=== PATIENT | female | born 1935 | race Caucasian/White ===

== ENCOUNTER 2017-01-14 15:22 | Inpatient (IN) | payer MEDICARE, OTHER ==
[2017-01-14] MEDS ORDERED: Singulair 10 MG PO PRN (17:16)
[2017-01-14] MEDS ORDERED: TYLENOL 325 MG PO PRN (17:16)
[2017-01-14] MEDS: Norco 10/325 MG Tablet PO PRN ×2 (18:56→22:58)
[2017-01-14] MEDS: Klor Con 10 MEQ PO SCH (22:12)
[2017-01-14] MEDS: Senokot-S Tablet PO SCH (22:12)
[2017-01-15] MEDS: Norco 10/325 MG Tablet PO PRN ×5 (03:58→23:35)
[2017-01-15] MEDS: FEOSOL 325 MG PO SCH (10:00)
[2017-01-15] MEDS: Ecotrin 325 MG PO SCH (10:00)
[2017-01-15] MEDS ORDERED: Aplisol ID SCH (10:00)
[2017-01-15] MEDS: hydroDIURIL 25 MG PO SCH (10:00)
[2017-01-15] MEDS: Zestril 10 MG PO SCH (10:01)
[2017-01-15] MEDS: ZOCOR 20MG PO SCH (10:01)
[2017-01-15] MEDS: celeBREX 100 MG PO SCH (10:01)
[2017-01-15] MEDS: Senokot-S Tablet PO SCH ×2 (10:01→21:09)
[2017-01-15] MEDS: Protonix 40MG Tablet PO SCH (10:01)
[2017-01-15] MEDS: Toprol Xl 100 MG PO SCH (10:01)
[2017-01-15] MEDS: SYNTHROID 50 MCG PO SCH (10:01)
[2017-01-15] MEDS: Klor Con 10 MEQ PO SCH ×2 (10:01→21:08)
[2017-01-15] MEDS ORDERED: Tums EX 750 MG PO PRN (11:22)
[2017-01-15] MEDS ORDERED: Miralax Powder 17GM PACKET PO PRN (11:49)
--- NOTE | 2017-01-15 12:01 | PCM.HP ---
History of Present Illness - Chief Complaint Chief Complaint: deconditioning r/t right total knee arthroplasty History of Present Illness: is a 81 year old female pt of Dr. diego who had a total knee replacement [address] Coelho. Initially she was at [facility] but comes here for rehabilitation. She is not complaining of knee pain, just states it is "sore" when she is up on it. Was constipated, then wiht miralax she had 4 stools last night. - Review of Systems Respiratory: Cough (at times, loose but non productive) Abdominal/Gastrointestinal: Nausea (this morning after taking pills.), Other ( heartburn after taking her pills) Musculoskeletal: Joint Pain (s/p knee surgery) All Other Systems: Reviewed and Negative Medications & Allergies Home Medications: Home Medication List Acetaminophen 325 mg [Tylenol 325 mg] 650 mg PO Q4HPRN PRN 01/14/17 [ History Confirmed 01/14/17] Aspirin 325 mg PO DAILY 01/14/17 [History Confirmed 01/14/17] Celecoxib [Celebrex] 200 mg PO DAILY 01/14/17 [History Confirmed 01/14/17] Esomeprazole Magnesium [Nexium] 40 mg PO DAILY 01/14/17 [History Confirmed 01/14] Ferrous Sulfate 325 mg [Feosol 325 mg] 325 mg PO DAILY 01/14/17 [History Confirmed 01/14/17] Hydrochlorothiazide 12.5 mg PO DAILY 01/14/17 [History Confirmed 01/14/17] Hydrocodone/Acetaminophen [Hydrocodon-Acetaminophn 10-325] 1 tab PO Q4HPRN PRN 01/14/17 [History Confirmed 01/14/17] Levothyroxine Sodium 50 mcg PO QAM 01/14/17 [History Confirmed 01/14/17] Lisinopril 10 mg [Zestril 10 MG] 10 mg PO DAILY 01/14/17 [History Confirmed 01/14/17] Metoprolol Succinate [Toprol Xl] 100 mg PO DAILY 01/14/17 [History Confirmed 01/26] Montelukast Sodium [Singulair] 10 mg PO DAILY PRN PRN 01/14/17 [History Confirmed 01/14/17] Potassium Chloride [Klor-Con 10] 10 meq PO BID 01/14/17 [History Confirmed 01/14] Rosuvastatin Calcium [Crestor] 10 mg PO DAILY 01/14/17 [History Confirmed ] Sennosides/Docusate Sodium [Docusate Sodium-Senna Tablet] 1 tab PO BID 01/14/17 [History Confirmed 01/14/17] Allergies/Adverse Reactions: Allergies Allergy/AdvReac Type Severity Reaction Status Date / Time cephalexin [From Keflex] Allergy Verified 01/14/17 16:41 ciprofloxacin Allergy Verified 01/14/17 16:46 - Past Medical History Past Medical History: Yes Neurological History: No Pertinent History ENT History: No Pertinent History Cardiac History: Hypertension Respiratory History: No Pertinent History Endocrine Medical History: Hypothyroidism Musculoskelatal History: No Pertinent History, Arthritis GI Medical History: Other History: Other Pyscho-Social History: No Pertinent History Reproductive Disorders: Other Comment: cyst on ovary and stomach, 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 - Female History Are you now?: No - Past Surgical History Past Surgical History: Yes Neuro Surgical History: No Pertinent History Cardiac History: No Pertinent History Respiratory Surgery: No Pertinent History GI Surgical History: No Pertinent History Genitourinary Surgical Hx: No Pertinent History Musculskeletal Surgical Hx: Joint Replacement Female Surgical History: No Pertinent History Other Surgical History: total right knee replacement, 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 - Social History Smoking Status: Never smoker Exposure to second hand smoke: No Alcohol: None Drug Use: none - Physical Exam Vital Signs: Vital Signs - 24 hr Temp Pulse Resp BP Pulse Ox 01/14/17 19:45 97.9 F 84 20 128/58 90 L 01/14/17 15:53 97.7 F 81 20 148/67 93 L 01/14/17 15:22 97.7 F 81 20 148/67 93 L General Appearance: no apparent distress Neurologic Exam: alert, oriented x 3, cooperative Eye Exam: eyes nml inspection Neck Exam: normal inspection, non-tender, No lymphadenopathy Respiratory Exam: normal breath sounds, No crackles/rales, No rhonchi, No wheezing Cardiovascular Exam: regular rate/rhythm, normal heart sounds, No murmur Gastrointestinal/Abdomen Exam: soft, normal bowel sounds, No tenderness, No distention, No mass Extremity Exam: other (slight edema RLE. R knee with dressing in place, no erythema. dressing is clean and dry. Ice pack in place immediately prior to exam.) Assessment/Plan (1) S/P knee replacement Current Visit: Yes Status: Acute Assessment & Plan: Here for rehab, PT consulted. POD #4. Code(s): Z96.659 - PRESENCE OF UNSPECIFIED ARTIFICIAL KNEE JOINT (2) HTN (hypertension) Current Visit: Yes Status: Chronic Qualifiers: Hypertension type: essential hypertension Qualified Code(s): I10 - Essential (primary) hypertension Assessment & Plan: stable. recheck labs in a.m. Code(s): I10 - ESSENTIAL (PRIMARY) HYPERTENSION (3) Hyperlipidemia Current Visit: Yes Status: Chronic Qualifiers: Hyperlipidemia type: unspecified Qualified Code(s): E78.5 - Hyperlipidemia , unspecified Code(s): E78.5 - HYPERLIPIDEMIA, UNSPECIFIED (4) Osteoarthritis Current Visit: Yes Status: Chronic Qualifiers: Osteoarthritis location: unspecified site Osteoarthritis type: unspecified Qualified Code(s): M19.90 - Unspecified osteoarthritis, unspecified site Assessment & Plan: has been on celebrex Code(s): M19.90 - UNSPECIFIED OSTEOARTHRITIS, UNSPECIFIED SITE
[2017-01-15] MEDS: ZOFRAN ODT 4 MG PO PRN (12:56)
[2017-01-16] MEDS: Norco 10/325 MG Tablet PO PRN ×4 (03:39→19:57)
[2017-01-16 05:33] LABS: BASOPHIL % 0.5 % (0.0-0.4); Eosinophil % 5.2 % (0.00-5.0); Granulocytes % 48.5 % (36.0-66.0); Lymphocytes % 30.9 % (24.0-44.0); Mean Cell Volume 90.3 fl (78-100); Mean Corpuscular Hemoglobin 29.7 pg (26-32); Mean Platelet Volume 8.3 fl (6-9.5); Monocytes % 14.9 % (0.0-12.0); Platelet Count 373 K/mm3 (150-450); Red Cell Distribution Width 13.4 % (11.5-14.0); White Blood Count 9.6 K/mm3 (4.0-10.5)
[2017-01-16 05:53] LABS: ALBUMIN 2.4 g/dL (3.4-5.0); ALKALINE PHOSPHATASE 79 U/L (46-116); ANION GAP 8.5 MEQ/L (5-15); BILIRUBIN,TOTAL 0.5 mg/dL (0.2-1.0); BLOOD UREA NITROGEN 7 mg/dL (9-20); CHLORIDE 94 mEq/L (98-107); Carbon Dioxide 31.5 mEq/L (21-32); Glucose 106 MG/DL (70-110); Potassium 4.2 mEq/L (3.5-5.1); SGOT/AST 20 U/L (15-37); SGPT/ALT 18 U/L (12-78); SODIUM 130 mEq/L (136-145); Total Protein 5.9 gm/dL (6.4-8.2)
[2017-01-16] MEDS: celeBREX 100 MG PO SCH (10:45)
[2017-01-16] MEDS: Protonix 40MG Tablet PO SCH (10:45)
[2017-01-16] MEDS: hydroDIURIL 25 MG PO SCH (10:45)
[2017-01-16] MEDS: Toprol Xl 100 MG PO SCH (10:45)
[2017-01-16] MEDS: ZOCOR 20MG PO SCH (10:45)
[2017-01-16] MEDS: Klor Con 10 MEQ PO SCH ×2 (10:45→21:21)
[2017-01-16] MEDS: SYNTHROID 50 MCG PO SCH (10:45)
[2017-01-16] MEDS: FEOSOL 325 MG PO SCH (10:45)
[2017-01-16] MEDS: Senokot-S Tablet PO SCH ×2 (10:45→21:21)
[2017-01-16] MEDS: Ecotrin 325 MG PO SCH (10:45)
[2017-01-16] MEDS: Zestril 10 MG PO SCH (10:45)
[2017-01-16] MEDS ORDERED: CHLORASEPTIC SPRAY 180 ML PO PRN (17:38)
[2017-01-17] MEDS: Norco 10/325 MG Tablet PO PRN ×5 (00:28→23:25)
[2017-01-17] MEDS ORDERED: CHLORASEPTIC SPRAY 180 ML PO PRN (06:36)
--- NOTE | 2017-01-17 08:17 | PCM.NOTE ---
Date and Time: 01/17/17814 Subjective Assessment: patient doing quite well s/p right total knee arthroplasty. having some gerd symptoms Objective Exam General Appearance: no apparent distress, alert Skin Exam: normal color, warm, dry Respiratory Exam: normal breath sounds, lungs clear, No respiratory distress Cardiovascular Exam: regular rate/rhythm, normal heart sounds Gastrointestinal/Abdomen Exam: soft, No tenderness, No mass Extremity Exam: normal inspection, normal range of motion OBJECTIVE DATA Vital Signs: Vital Signs - 24 hr Temp Pulse Resp BP Pulse Ox 01/17/17 07: 98.1 F 71 18 145/64 93 L 01/16/17 20:00 98.3 F 73 14 139/63 96 Pain Assessment - Last Documented Pain Intensity 5 Pain Scale Used 0-10 Pain Scale Intake and Output: Intake & Output 01/14/17 01/15/17 01/16/17 01/17/17 11:59 11:59 11:59 11:59 Intake Total 1560 1300 1580 Balance 1560 1300 1580 Weight 83.552 kg Assessment/Plan (1) S/P knee replacement Current Visit: Yes Status: Acute Assessment & Plan: continue PT, no changes at this time. Code(s): Z96.659 - PRESENCE OF UNSPECIFIED ARTIFICIAL KNEE JOINT (2) HTN (hypertension) Current Visit: Yes Status: Chronic Qualifiers: Hypertension type: essential hypertension Qualified Code(s): I10 - Essential (primary) hypertension Code(s): I10 - ESSENTIAL (PRIMARY) HYPERTENSION (3) Hyperlipidemia Current Visit: Yes Status: Chronic Qualifiers: Hyperlipidemia type: unspecified Qualified Code(s): E78.5 - Hyperlipidemia , unspecified Code(s): E78.5 - HYPERLIPIDEMIA, UNSPECIFIED (4) Osteoarthritis Current Visit: Yes Status: Chronic Qualifiers: Osteoarthritis location: unspecified site Osteoarthritis type: unspecified Qualified Code(s): M19.90 - Unspecified osteoarthritis, unspecified site Code(s): M19.90 - UNSPECIFIED OSTEOARTHRITIS, UNSPECIFIED SITE
[2017-01-17] MEDS: Klor Con 10 MEQ PO SCH ×2 (08:56→23:17)
[2017-01-17] MEDS: Ecotrin 325 MG PO SCH (08:56)
[2017-01-17] MEDS: celeBREX 100 MG PO SCH (08:57)
[2017-01-17] MEDS: Protonix 40MG Tablet PO SCH (08:57)
[2017-01-17] MEDS: Senokot-S Tablet PO SCH ×2 (08:57→23:17)
[2017-01-17] MEDS: SYNTHROID 50 MCG PO SCH (08:57)
[2017-01-17] MEDS: Zestril 10 MG PO SCH (08:57)
[2017-01-17] MEDS: FEOSOL 325 MG PO SCH (08:58)
[2017-01-17] MEDS: Toprol Xl 100 MG PO SCH (08:58)
[2017-01-17] MEDS: ZOCOR 20MG PO SCH (08:58)
[2017-01-17] MEDS: hydroDIURIL 25 MG PO SCH (08:58)
[2017-01-17] MEDS ORDERED: Tums EX 750 MG PO PRN ×2 (09:13→10:24)
[2017-01-18] MEDS: Norco 10/325 MG Tablet PO PRN ×3 (08:43→22:02)
[2017-01-18] MEDS: Senokot-S Tablet PO SCH ×2 (08:44→22:02)
[2017-01-18] MEDS: ZOCOR 20MG PO SCH (08:44)
[2017-01-18] MEDS: FEOSOL 325 MG PO SCH (08:46)
[2017-01-18] MEDS: Ecotrin 325 MG PO SCH (08:46)
[2017-01-18] MEDS: Toprol Xl 100 MG PO SCH (08:47)
[2017-01-18] MEDS: Protonix 40MG Tablet PO SCH (08:48)
[2017-01-18] MEDS: celeBREX 100 MG PO SCH (08:50)
[2017-01-18] MEDS: hydroDIURIL 25 MG PO SCH (08:52)
[2017-01-18] MEDS: Zestril 10 MG PO SCH (08:53)
[2017-01-18] MEDS: Klor Con 10 MEQ PO SCH ×2 (10:51→22:01)
[2017-01-18] MEDS: SYNTHROID 50 MCG PO SCH (10:51)
[2017-01-18 22:21] LABS: ADD URINE CULTURE? NO (NO); COMPLETE URINE MICROSCOPIC? NO; Collection Type CLEAN CATCH; Ph 5.5 (5-6)
[2017-01-19] MEDS: Norco 10/325 MG Tablet PO PRN ×4 (07:31→22:47)
--- NOTE | 2017-01-19 08:43 | PCM.NOTE ---
Date and Time: 01/19/17 0841 Subjective Assessment: patient had to have flores cath anchored yesterday, unable to urinate. pain is well controlled, doing great with therapy. ambulating well Objective Exam General Appearance: no apparent distress, alert Respiratory Exam: normal breath sounds, lungs clear, No respiratory distress Cardiovascular Exam: regular rate/rhythm, normal heart sounds Gastrointestinal/Abdomen Exam: soft, No tenderness, No mass Extremity Exam: other (right knee, dressing c/d/i, no erythema. no significant swelling) OBJECTIVE DATA Vital Signs: Vital Signs - 24 hr Temp Pulse Resp BP Pulse Ox 01/19/17 07:12 98.6 F 93 H 18 140/65 94 L 01/18/17 20:00 98.1 F 79 13 138/64 95 Pain Assessment - Last Documented Pain Intensity 2 Pain Scale Used 0-10 Pain Scale Intake and Output: Intake & Output 01/16/17 01/17/17 01/18/17 01/19/17 11:59 11:59 11:59 11:59 Intake Total 1300 2060 1280 1340 Output Total 3200 Balance 1300 2060 1280 -1860 Weight 83.552 kg Lab Results: Lab Results-Last 24 Hours 01/18/17 01/19/17 Range/Units 22:15 05:33 Sodium 135 L (136-145) mEq/L Ur Collection Type CLEAN CATCH Urine Color YELLOW (YELLOW) Urine Appearance CLEAR (CLEAR) Urine pH 5.5 (5-6) Ur Specific [place] <=1.005 (1.005-1.025) Urine Protein NEGATIVE (Negative) Urine Glucose (UA) NEGATIVE (NEGATIVE) mg/dL Urine Ketones NEGATIVE (NEGATIVE) Urine Nitrite NEGATIVE (NEGATIVE) Urine Bilirubin NEGATIVE (NEGATIVE) Urine Urobilinogen 0.2 (0-1) mg/dL Urine WBC (Auto) NEGATIVE (NEGATIVE) Urine RBC (Auto) NEGATIVE (0-5) Nino/ul Specimen Received 01/18/17 7430 Multi-Disciplinary Progress Notes: Multi-Disciplinary Progress Notes 01/18/17 10:42 Case Management Note by Cammy Dickinson PT CONT TO BE IN SWING BED. WILL CONT TO MONITOR ANY DISCHARGE NEEDS . Initialized on 01/18/17 10:42 - END OF NOTE Assessment/Plan (1) S/P knee replacement Current Visit: Yes Status: Acute Assessment & Plan: doing well with therapy, looks great Code(s): Z96.659 - PRESENCE OF UNSPECIFIED ARTIFICIAL KNEE JOINT (2) HTN (hypertension) Current Visit: Yes Status: Chronic Qualifiers: Hypertension type: essential hypertension Qualified Code(s): I10 - Essential (primary) hypertension Code(s): I10 - ESSENTIAL (PRIMARY) HYPERTENSION (3) Hyperlipidemia Current Visit: Yes Status: Chronic Qualifiers: Hyperlipidemia type: unspecified Qualified Code(s): E78.5 - Hyperlipidemia , unspecified Code(s): E78.5 - HYPERLIPIDEMIA, UNSPECIFIED (4) Osteoarthritis Current Visit: Yes Status: Chronic Qualifiers: Osteoarthritis location: unspecified site Osteoarthritis type: unspecified Qualified Code(s): M19.90 - Unspecified osteoarthritis, unspecified site Code(s): M19.90 - UNSPECIFIED OSTEOARTHRITIS, UNSPECIFIED SITE (5) Urinary retention Current Visit: Yes Status: Acute Assessment & Plan: likely secondary to constipation, narcotic use etc. if able to evacuate bowels will remove flores and then check a post-void residual bladder scan Code(s): R33.9 - RETENTION OF URINE, UNSPECIFIED (6) Constipation Current Visit: Yes Status: Acute Assessment & Plan: give mag citrate, if able to evacuate bowels will likely be able to remove flores Code(s): K59.00 - CONSTIPATION, UNSPECIFIED
[2017-01-19] MEDS ORDERED: CITROMA 296 ML PO ONE (09:00)
[2017-01-19] MEDS: Toprol Xl 100 MG PO SCH (09:11)
[2017-01-19] MEDS: celeBREX 100 MG PO SCH (09:11)
[2017-01-19] MEDS: Protonix 40MG Tablet PO SCH (09:12)
[2017-01-19] MEDS: ZOCOR 20MG PO SCH (09:12)
[2017-01-19] MEDS: Ecotrin 325 MG PO SCH (09:12)
[2017-01-19] MEDS: hydroDIURIL 25 MG PO SCH (09:12)
[2017-01-19] MEDS: SYNTHROID 50 MCG PO SCH (09:12)
[2017-01-19] MEDS: Klor Con 10 MEQ PO SCH ×2 (09:12→22:18)
[2017-01-19] MEDS: Senokot-S Tablet PO SCH ×2 (09:12→22:18)
[2017-01-19] MEDS: Zestril 10 MG PO SCH (09:13)
[2017-01-19] MEDS: FEOSOL 325 MG PO SCH (09:13)
[2017-01-20] MEDS: Norco 10/325 MG Tablet PO PRN ×3 (02:54→14:08)
[2017-01-20] MEDS: SYNTHROID 50 MCG PO SCH (07:44)
[2017-01-20] MEDS: celeBREX 100 MG PO SCH (07:45)
[2017-01-20] MEDS: Zestril 10 MG PO SCH (09:01)
[2017-01-20] MEDS: ZOCOR 20MG PO SCH (09:01)
[2017-01-20] MEDS: hydroDIURIL 25 MG PO SCH (09:58)
[2017-01-20] MEDS: Klor Con 10 MEQ PO SCH ×2 (09:58→22:22)
[2017-01-20] MEDS: Protonix 40MG Tablet PO SCH (10:13)
[2017-01-20] MEDS: Toprol Xl 100 MG PO SCH (10:13)
[2017-01-20] MEDS: FEOSOL 325 MG PO SCH (10:55)
[2017-01-20] MEDS: Senokot-S Tablet PO SCH ×2 (10:55→22:26)
[2017-01-20] MEDS: Ecotrin 325 MG PO SCH ×2 (12:08→14:08)
--- NOTE | 2017-01-20 13:26 | PCM.NOTE ---
Date and Time: 01/20/17 1325 Subjective Assessment: patient doing well, pain well controlled. enjoying therapy, ambulating very well. bowels still have not moved Objective Exam General Appearance: no apparent distress, alert Respiratory Exam: normal breath sounds, lungs clear, No respiratory distress Cardiovascular Exam: regular rate/rhythm, normal heart sounds Gastrointestinal/Abdomen Exam: soft, normal bowel sounds Extremity Exam: normal inspection, normal range of motion OBJECTIVE DATA Vital Signs: Vital Signs - 24 hr Temp Pulse Resp BP Pulse Ox 01/20/17 06:48 98.7 F 76 18 135/63 91 L 01/19/17 20:00 98.2 F 74 16 177/70 93 L Pain Assessment - Last Documented Pain Intensity 1 Pain Scale Used 0-10 Pain Scale Intake and Output: Intake & Output 01/18/17 01/19/17 01/20/17 01/21/17 11:59 11:59 11:59 11:59 Intake Total 1280 1820 1300 Output Total 3200 1500 Balance 1280 -1380 -200 Weight 83.552 kg Multi-Disciplinary Progress Notes: Multi-Disciplinary Progress Notes 01/20/17 11:11 Nutrition Note by Mandy Harris F/u Note: Regular diet continues with 50-75% po intake x most. Na 135 on 01/19--no other new labs--BUN 7, hgb 10.1, hct 30.7. goal #1) maintain po intake >50%: being met. Will monitor and f/u prn. BRAXTON Mcgovern Initialized on 01/20/17 11:11 - END OF NOTE 01/20/17 10:50 Case Management Note by GALEN PRICE PT CONTINUES IN SWING BED. DISCHARGE NEEDS ADDRESSED. PT STATES HER NIECE WILL BE COMING TO STAY WITH HER UNTIL THE END OF JANUARY AND WILL BE ABLE TO HELP HER GET TO AND FROM PHYSICAL THERAPY. SHE ALSO INFORMS ME THAT SHE WILL NEED A TOILET RISER WHEN SHE GOES HOME AND TALK DR SOLER WILL MAKE SURE SHE HAS ONE. WILL CONTINUE TO MONITOR HER DISCHARGE NEEDS. Initialized on 01/20/17 10:50 - END OF NOTE Assessment/Plan (1) S/P knee replacement Current Visit: Yes Status: Acute Code(s): Z96.659 - PRESENCE OF UNSPECIFIED ARTIFICIAL KNEE JOINT (2) HTN (hypertension) Current Visit: Yes Status: Chronic Qualifiers: Hypertension type: essential hypertension Qualified Code(s): I10 - Essential (primary) hypertension Code(s): I10 - ESSENTIAL (PRIMARY) HYPERTENSION (3) Hyperlipidemia Current Visit: Yes Status: Chronic Qualifiers: Hyperlipidemia type: unspecified Qualified Code(s): E78.5 - Hyperlipidemia , unspecified Code(s): E78.5 - HYPERLIPIDEMIA, UNSPECIFIED (4) Osteoarthritis Current Visit: Yes Status: Chronic Qualifiers: Osteoarthritis location: unspecified site Osteoarthritis type: unspecified Qualified Code(s): M19.90 - Unspecified osteoarthritis, unspecified site Code(s): M19.90 - UNSPECIFIED OSTEOARTHRITIS, UNSPECIFIED SITE (5) Urinary retention Current Visit: Yes Status: Acute Assessment & Plan: give enema, will d/c flores when able to move bowels. Code(s): R33.9 - RETENTION OF URINE, UNSPECIFIED (6) Constipation Current Visit: Yes Status: Acute Code(s): K59.00 - CONSTIPATION, UNSPECIFIED
[2017-01-21] MEDS: Norco 10/325 MG Tablet PO PRN ×3 (01:42→14:52)
--- NOTE | 2017-01-21 08:09 | PCM.NOTE ---
Date and Time: 01/21/17 0808 Subjective Assessment: patient had bowel movement yesterday, flores was removed but had to be replaced last night. pt was unable to void. still doing well otherwise Objective Exam General Appearance: no apparent distress, alert Skin Exam: normal color, warm, dry Respiratory Exam: normal breath sounds, lungs clear, No respiratory distress Cardiovascular Exam: regular rate/rhythm, normal heart sounds Gastrointestinal/Abdomen Exam: soft, No tenderness, No mass Extremity Exam: normal inspection, normal range of motion OBJECTIVE DATA Vital Signs: Vital Signs - 24 hr Temp Pulse Resp BP Pulse Ox 01/21/17 07:56 98.4 F 73 20 92/54 95 01/20/17 20:00 97.8 F 75 18 136/60 97 Oxygen-Last 24 hours O2 Percentage 2 Liters = 28% Pain Assessment - Last Documented Pain Intensity 1 Pain Scale Used 0-10 Pain Scale Intake and Output: Intake & Output 01/18/17 01/19/17 01/20/17 01/21/17 11:59 11:59 11:59 11:59 Intake Total 1280 1820 1300 700 Output Total 3200 1500 1150 Balance 1280 -1380 -200 -450 Weight 83.552 kg Multi-Disciplinary Progress Notes: Multi-Disciplinary Progress Notes 01/20/17 11:11 Nutrition Note by Mandy Harris F/u Note: Regular diet continues with 50-75% po intake x most. Na 135 on 01/19--no other new labs--BUN 7, hgb 10.1, hct 30.7. goal #1) maintain po intake >50%: being met. Will monitor and f/u prn. L.BRAXTON Harris Initialized on 01/20/17 11:11 - END OF NOTE 01/20/17 10:50 Case Management Note by GALEN PRICE PT CONTINUES IN SWING BED. DISCHARGE NEEDS ADDRESSED. PT STATES HER NIECE WILL BE COMING TO STAY WITH HER UNTIL THE END OF JANUARY AND WILL BE ABLE TO HELP HER GET TO AND FROM PHYSICAL THERAPY. SHE ALSO INFORMS ME THAT SHE WILL NEED A TOILET RISER WHEN SHE GOES HOME AND TALK DR SOLER WILL MAKE SURE SHE HAS ONE. WILL CONTINUE TO MONITOR HER DISCHARGE NEEDS. Initialized on 01/20/17 10:50 - END OF NOTE Assessment/Plan (1) S/P knee replacement Current Visit: Yes Status: Acute Code(s): Z96.659 - PRESENCE OF UNSPECIFIED ARTIFICIAL KNEE JOINT (2) HTN (hypertension) Current Visit: Yes Status: Chronic Qualifiers: Hypertension type: essential hypertension Qualified Code(s): I10 - Essential (primary) hypertension Code(s): I10 - ESSENTIAL (PRIMARY) HYPERTENSION (3) Hyperlipidemia Current Visit: Yes Status: Chronic Qualifiers: Hyperlipidemia type: unspecified Qualified Code(s): E78.5 - Hyperlipidemia , unspecified Code(s): E78.5 - HYPERLIPIDEMIA, UNSPECIFIED (4) Osteoarthritis Current Visit: Yes Status: Chronic Qualifiers: Osteoarthritis location: unspecified site Osteoarthritis type: unspecified Qualified Code(s): M19.90 - Unspecified osteoarthritis, unspecified site Code(s): M19.90 - UNSPECIFIED OSTEOARTHRITIS, UNSPECIFIED SITE (5) Urinary retention Current Visit: Yes Status: Acute Code(s): R33.9 - RETENTION OF URINE, UNSPECIFIED (6) Constipation Current Visit: Yes Status: Acute Code(s): K59.00 - CONSTIPATION, UNSPECIFIED
[2017-01-21] MEDS: SYNTHROID 50 MCG PO SCH (08:13)
[2017-01-21] MEDS: Protonix 40MG Tablet PO SCH (08:15)
[2017-01-21] MEDS: Toprol Xl 100 MG PO SCH (11:31)
[2017-01-21] MEDS: ZOCOR 20MG PO SCH (11:31)
[2017-01-21] MEDS: Klor Con 10 MEQ PO SCH ×2 (11:31→21:46)
[2017-01-21] MEDS: Ecotrin 325 MG PO SCH (12:16)
[2017-01-21] MEDS: celeBREX 100 MG PO SCH (12:17)
[2017-01-21] MEDS: hydroDIURIL 25 MG PO SCH (13:18)
[2017-01-21] MEDS: FEOSOL 325 MG PO SCH (13:20)
[2017-01-21] MEDS: Zestril 10 MG PO SCH (13:20)
[2017-01-21] MEDS: Senokot-S Tablet PO SCH ×2 (13:20→21:46)
[2017-01-22] MEDS: Norco 10/325 MG Tablet PO PRN ×2 (05:20→16:06)
[2017-01-22] MEDS: Ecotrin 325 MG PO SCH (10:04)
[2017-01-22] MEDS: Toprol Xl 100 MG PO SCH (10:04)
[2017-01-22] MEDS: Protonix 40MG Tablet PO SCH (10:04)
[2017-01-22] MEDS: hydroDIURIL 25 MG PO SCH (10:04)
[2017-01-22] MEDS: SYNTHROID 50 MCG PO SCH (10:04)
[2017-01-22] MEDS: ZOCOR 20MG PO SCH (10:04)
[2017-01-22] MEDS: FEOSOL 325 MG PO SCH (10:04)
[2017-01-22] MEDS: Klor Con 10 MEQ PO SCH ×2 (10:04→21:51)
[2017-01-22] MEDS: Senokot-S Tablet PO SCH ×2 (10:04→21:51)
[2017-01-22] MEDS: Zestril 10 MG PO SCH (10:04)
[2017-01-22] MEDS: celeBREX 100 MG PO SCH (10:05)
[2017-01-23] MEDS: Norco 10/325 MG Tablet PO PRN ×2 (09:05→14:07)
[2017-01-23] MEDS: Toprol Xl 100 MG PO SCH (09:29)
[2017-01-23] MEDS: FEOSOL 325 MG PO SCH (09:29)
[2017-01-23] MEDS: SYNTHROID 50 MCG PO SCH (09:29)
[2017-01-23] MEDS: Protonix 40MG Tablet PO SCH (09:29)
[2017-01-23] MEDS: Senokot-S Tablet PO SCH ×2 (09:30→21:29)
[2017-01-23] MEDS: Klor Con 10 MEQ PO SCH ×2 (09:30→21:29)
[2017-01-23] MEDS: Zestril 10 MG PO SCH (09:30)
[2017-01-23] MEDS: ZOCOR 20MG PO SCH (09:30)
[2017-01-23] MEDS: hydroDIURIL 25 MG PO SCH (09:30)
[2017-01-23] MEDS: celeBREX 100 MG PO SCH (09:30)
[2017-01-23] MEDS: Ecotrin 325 MG PO SCH (09:30)
[2017-01-24 05:46] LABS: ANION GAP 8.3 MEQ/L (5-15); BLOOD UREA NITROGEN 7 mg/dL (9-20); CHLORIDE 98 mEq/L (98-107); Carbon Dioxide 28.7 mEq/L (21-32); Glucose 98 MG/DL (70-110); Potassium 3.7 mEq/L (3.5-5.1); SODIUM 131 mEq/L (136-145)
[2017-01-24 07:43] LABS: BASOPHIL % 0.9 % (0.0-0.4); Granulocytes % 52.3 % (36.0-66.0); Lymphocytes % 31.7 % (24.0-44.0); Mean Cell Volume 92.9 fl (78-100); Mean Platelet Volume 8.3 fl (6-9.5); Monocytes % 11.1 % (0.0-12.0); Platelet Count 431 K/mm3 (150-450); Red Blood Count 3.51 M/mm3 (4.1-5.4); Red Cell Distribution Width 14.3 % (11.5-14.0); White Blood Count 7.9 K/mm3 (4.0-10.5)
[2017-01-24 07:46] LABS: Mean Corpuscular Hemoglobin 30.4 pg (26-32)
[2017-01-24] MEDS: SYNTHROID 50 MCG PO SCH (07:58)
[2017-01-24] MEDS: Norco 10/325 MG Tablet PO PRN ×4 (08:01→22:56)
--- NOTE | 2017-01-24 08:40 | PCM.NOTE ---
Date and Time: 01/24/17 0839 Subjective Assessment: patient doing well with therapy, bowels moving well. pain is improving, only needing 2 pain pills per day Objective Exam General Appearance: no apparent distress, alert Respiratory Exam: normal breath sounds, lungs clear, No respiratory distress Cardiovascular Exam: regular rate/rhythm, normal heart sounds Gastrointestinal/Abdomen Exam: soft, No tenderness, No mass Extremity Exam: normal inspection, normal range of motion OBJECTIVE DATA Vital Signs: Vital Signs - 24 hr Temp Pulse Resp BP Pulse Ox 01/24/17 08:00 98 F 77 18 140/65 92 L 01/23/17 20:00 98.4 F 71 20 117/56 96 Pain Assessment - Last Documented Pain Intensity 0 Pain Scale Used 0-10 Pain Scale Intake and Output: Intake & Output 01/21/17 01/22/17 01/23/17 01/24/17 11:59 11:59 11:59 11:59 Intake Total 920 1700 1520 1440 Output Total 1150 2150 1350 1700 Balance -230 -450 170 -260 Lab Results: Lab Results-Last 24 Hours 01/24/17 01/24/17 Range/Units 05:05 05:05 WBC 7.9 (4.0-10.5) K/mm3 RBC 3.51 L (4.1-5.4) M/mm3 Hgb 10.7 L (12.0-16.0) gm/dl Hct 32.6 L (35-47) % MCV 92.9 (78-100) fl MCH 30.4 (26-32) pg MCHC 32.8 (32-36) g/dl RDW 14.3 H (11.5-14.0) % Plt Count 431 (150-450) K/mm3 MPV 8.3 (6-9.5) fl Gran % 52.3 (36.0-66.0) % Lymphocytes % 31.7 (24.0-44.0) % Monocytes % 11.1 (0.0-12.0) % Eosinophils % 4.0 (0.00-5.0) % Basophils % 0.9 (0.0-0.4) % Basophils # 0.07 (0-0.4) Sodium 131 L (136-145) mEq/L Potassium 3.7 (3.5-5.1) mEq/L Chloride 98 (98-107) mEq/L Carbon Dioxide 28.7 (21-32) mEq/L Anion Gap 8.3 (5-15) MEQ/L BUN 7 L (9-20) mg/dL Creatinine 0.87 (0.55-1.30) mg/dl Estimated GFR > 60 ML/MIN Glucose 98 (70-110) MG/DL Calcium 8.9 (8.5-10.1) mg/dL Assessment/Plan (1) S/P knee replacement Current Visit: Yes Status: Acute Assessment & Plan: doing great at this time, likely home on Tuesday. f/u with Dr Coelho this afternoon Code(s): Z96.659 - PRESENCE OF UNSPECIFIED ARTIFICIAL KNEE JOINT (2) HTN (hypertension) Current Visit: Yes Status: Chronic Qualifiers: Hypertension type: essential hypertension Qualified Code(s): I10 - Essential (primary) hypertension Code(s): I10 - ESSENTIAL (PRIMARY) HYPERTENSION (3) Hyperlipidemia Current Visit: Yes Status: Chronic Qualifiers: Hyperlipidemia type: unspecified Qualified Code(s): E78.5 - Hyperlipidemia , unspecified Code(s): E78.5 - HYPERLIPIDEMIA, UNSPECIFIED (4) Osteoarthritis Current Visit: Yes Status: Chronic Qualifiers: Osteoarthritis location: unspecified site Osteoarthritis type: unspecified Qualified Code(s): M19.90 - Unspecified osteoarthritis, unspecified site Code(s): M19.90 - UNSPECIFIED OSTEOARTHRITIS, UNSPECIFIED SITE (5) Urinary retention Current Visit: Yes Status: Acute Assessment & Plan: remove flores today Code(s): R33.9 - RETENTION OF URINE, UNSPECIFIED (6) Constipation Current Visit: Yes Status: Acute Code(s): K59.00 - CONSTIPATION, UNSPECIFIED
[2017-01-24] MEDS: Zestril 10 MG PO SCH (08:57)
[2017-01-24] MEDS: Toprol Xl 100 MG PO SCH (08:57)
[2017-01-24] MEDS: hydroDIURIL 25 MG PO SCH (10:02)
[2017-01-24] MEDS: Protonix 40MG Tablet PO SCH (10:02)
[2017-01-24] MEDS: celeBREX 100 MG PO SCH (10:26)
[2017-01-24] MEDS: Senokot-S Tablet PO SCH ×2 (11:45→21:04)
[2017-01-24] MEDS: ZOCOR 20MG PO SCH (11:45)
[2017-01-24] MEDS: Klor Con 10 MEQ PO SCH ×2 (13:03→21:04)
[2017-01-24] MEDS: FEOSOL 325 MG PO SCH (13:03)
[2017-01-24] MEDS: Ecotrin 325 MG PO SCH (13:03)
[2017-01-25] MEDS: Protonix 40MG Tablet PO SCH (09:20)
[2017-01-25] MEDS: SYNTHROID 50 MCG PO SCH (09:20)
[2017-01-25] MEDS: celeBREX 100 MG PO SCH (09:20)
[2017-01-25] MEDS: Norco 10/325 MG Tablet PO PRN ×3 (09:21→21:32)
[2017-01-25] MEDS: hydroDIURIL 25 MG PO SCH (09:22)
[2017-01-25] MEDS: Ecotrin 325 MG PO SCH (10:37)
[2017-01-25] MEDS: Klor Con 10 MEQ PO SCH ×2 (10:37→21:32)
[2017-01-25] MEDS: Zestril 10 MG PO SCH (10:37)
[2017-01-25] MEDS: ZOCOR 20MG PO SCH (10:38)
[2017-01-25] MEDS: Toprol Xl 100 MG PO SCH (13:34)
[2017-01-25] MEDS: FEOSOL 325 MG PO SCH (13:35)
[2017-01-25] MEDS: Senokot-S Tablet PO SCH ×2 (13:35→21:32)
[2017-01-26] MEDS: Norco 10/325 MG Tablet PO PRN ×2 (04:45→08:30)
[2017-01-26 07:23] VITALS: BP 130/67; PULSE 75; O2SAT 91
--- NOTE | 2017-01-26 07:50 | PCM.DS ---
Discharge Summary Date of Admission: 01/14/17 15:22 Admitting Physician: ARTURO SOLER Primary Care Provider: ARTURO SOLER Allergies Allergies cephalexin [From Keflex] Allergy (Verified 01/14/17 16:41) ciprofloxacin Allergy (Verified 01/14/17 16:46) Hospital Summary - Hospital Course Hospital Course: patient here for rehab following right total knee, she is ambulating wonderfully. feels great, pain is minimal. only issue has been urinary retention , unable to remove flores x 2 attempts - Vitals & Intake/Output Vital Signs: Vital Signs Temperature 98.5 F 01/26/17 07:22 Pulse Rate 75 01/26/17 07:22 Respiratory Rate 20 01/26/17 07:22 Blood Pressure 130/67 01/26/17 07:22 O2 Sat by Pulse Oximetry 91 L 01/26/17 07:22 Oxygen-Last Documented O2 Percentage 2 Liters = 28% Intake & Output: Intake & Output 01/23/17 01/24/17 01/25/17 01/26/17 11:59 11:59 11:59 11:59 Intake Total 1520 1440 1180 1080 Output Total 1350 1700 1300 2550 Balance 170 -260 -120 -5420 - Lab Result Diagrams: 01/24/17 05:05 01/24/17 05:05 Micro Results-Entire Visit: Microbiology 01/21/17 01:30 - Final Urine, Catheterized NO GROWTH 01/20/17 03:58 - Final Catherized NO GROWTH - Procedures and Test Procedures and Tests throughout Hospitalization: Therapy Orders & Screens 01/14/17 16:06 PT Eval & Treat ( Order) ROUTINE Evaluate: Yes Treat: Yes Reason for Eval:: post op right total knee arthroplasty Diagnosis: deconditioning r/t right total knee arthroplasty Discharge Exam General Appearance: no apparent distress, alert Respiratory Exam: normal breath sounds, lungs clear, No respiratory distress Cardiovascular Exam: regular rate/rhythm, normal heart sounds Gastrointestinal/Abdomen Exam: soft, No tenderness, No mass Extremity Exam: other (right knee well approximated, healing incision. no erythema, no drainage) Final Diagnosis/Problem List - Final Discharge Diagnosis/Problem (1) S/P knee replacement Current Visit: Yes Status: Acute (2) HTN (hypertension) Current Visit: Yes Status: Chronic (3) Hyperlipidemia Current Visit: Yes Status: Chronic (4) Osteoarthritis Current Visit: Yes Status: Chronic (5) Urinary retention Current Visit: Yes Status: Acute Assessment & Plan: refer to Dr Russo with flores in place on discharge, patient sees him and is established (6) Constipation Current Visit: Yes Status: Acute - Discharge Disposition: Home, Self-Care Condition: Stable Prescriptions: Continue Hydrochlorothiazide 12.5 mg PO DAILY Rosuvastatin Calcium [Crestor] 10 mg PO DAILY Potassium Chloride [Klor-Con 10] 10 meq PO BID Montelukast Sodium [Singulair] 10 mg PO DAILY PRN PRN PRN Reason: Allergies Metoprolol Succinate [Toprol Xl] 100 mg PO DAILY Lisinopril 10 mg [Zestril 10 MG] 10 mg PO DAILY Levothyroxine Sodium 50 mcg PO QAM Ferrous Sulfate 325 mg [Feosol 325 mg] 325 mg PO DAILY Esomeprazole Magnesium [Nexium] 40 mg PO DAILY Sennosides/Docusate Sodium [Docusate Sodium-Senna Tablet] 1 tab PO BID Celecoxib [Celebrex] 200 mg PO DAILY Aspirin 325 mg PO DAILY Acetaminophen 325 mg [Tylenol 325 mg] 650 mg PO Q4HPRN PRN PRN Reason: Pain And/Or Fever Hydrocodone/Acetaminophen [Hydrocodon-Acetaminophn 10-325] 1 tab PO Q4HPRN PRN #30 tablet PRN Reason: Pain Follow up with: TOSHIA RUSSO [COURTESY STAFF] - 1 Week ARTURO SOLER MD [Primary Care Provider] - 1 Week Forms: Patient Portal Information
[2017-01-26] MEDS: Ecotrin 325 MG PO SCH (08:31)
[2017-01-26] MEDS: ZOCOR 20MG PO SCH (08:31)
[2017-01-26] MEDS: Protonix 40MG Tablet PO SCH (08:31)
[2017-01-26] MEDS: Klor Con 10 MEQ PO SCH (08:31)
[2017-01-26] MEDS: FEOSOL 325 MG PO SCH (08:32)
[2017-01-26] MEDS: Zestril 10 MG PO SCH (08:32)
[2017-01-26] MEDS: SYNTHROID 50 MCG PO SCH (08:32)
[2017-01-26] MEDS: Senokot-S Tablet PO SCH (08:33)
[2017-01-26] MEDS: hydroDIURIL 25 MG PO SCH (08:33)
[2017-01-26] MEDS: celeBREX 100 MG PO SCH (08:33)
[2017-01-26] MEDS: Toprol Xl 100 MG PO SCH (08:36)
[2017-01-26] MEDS ORDERED: Aplisol ID SCH (10:00)
[2017-01-26] MEDS: ZOFRAN ODT 4 MG PO PRN (11:39)
== END 2017-01-26 17:45 | disposition home or self-care (01) | DRG 561 ==
LOC: MED SURG 15:22
PROVIDERS: ADMIT Family Medicine; ATTEND Family Medicine
DX: Z47.1 Aftercare following joint replacement surgery (principal); Z96.651 Presence of right artificial knee joint; M25.561 Pain in right knee; I10 Essential (primary) hypertension; E78.5 Hyperlipidemia, unspecified; M19.90 Unspecified osteoarthritis, unspecified site; R33.9 Retention of urine, unspecified; K59.00 Constipation, unspecified; Z79.899 Other long term (current) drug therapy
CPT/HCPCS: 36415; 80048; 80053; 81002; 84295; 85025; 87086; Q0162; 97110-GP; A9270-GY

== ENCOUNTER 2018-08-22 17:59 | Emergency (ER) | payer MEDICARE ==
--- NOTE | 2018-08-22 18:27 | ERPHSYRPT ---
- History of Present Illness Time Seen by Provider: 08/22/18 18:15 Source: patient, family Exam Limitations: no limitations Patient Subjective Stated Complaint: Pt states "I tripped and fell and hit my face and my left knee." Triage Nursing Assessment: Pt alert and oriented X 3, skin pwd PT ambulates with an upright steady gait, able to speak in clear full sentences. Pt nose is swollen, forehead is swollen, abrasions noted to each, abrasion noted to left knee.CSMX 4 Physician History: 82 y/o white female presents with abrasions to nose, nasal bridge, forehead and left ant knee. pt accidentally tripped while cleaning her car. no dizziness or syncope. never had before. no anticoag tx. Occurred: just prior to arrival Reason for Fall: lost balance, tripped, fell from standing pos Injuries/Pain Location: head, face, lower extremity (left ant knee) Loss of Consciousness: no loss of consciousness Modifying Factors: Improves With: movement (hurts) Associated Symptoms (Fall): extremity injury (left ant knee), No abdominal pain , No back pain, No confusion, No chest pain, No dizziness, No neck pain, No seizures, No shortness of breath, No trouble walking, No vomiting, No vision changes Allergies/Adverse Reactions: cephalexin [From Keflex] Allergy (Verified 01/14/17 16:41) ciprofloxacin Allergy (Verified 01/14/17 16:46) Home Medications: Acetaminophen 325 mg [Tylenol 325 mg] 650 mg PO Q4HPRN PRN 01/14/17 [ History] Aspirin 325 mg PO DAILY 01/14/17 [History] Celecoxib [Celebrex] 200 mg PO DAILY 01/14/17 [History] Esomeprazole Magnesium [Nexium] 40 mg PO DAILY 01/14/17 [History] Ferrous Sulfate 325 mg [Feosol 325 mg] 325 mg PO DAILY 01/14/17 [History] Hydrochlorothiazide 12.5 mg PO DAILY 01/14/17 [History] Levothyroxine Sodium 50 mcg PO QAM 01/14/17 [History] Lisinopril 10 mg [Zestril 10 MG] 10 mg PO DAILY 01/14/17 [History] Metoprolol Succinate [Toprol Xl] 100 mg PO DAILY 01/14/17 [History] Montelukast Sodium [Singulair] 10 mg PO DAILY PRN PRN 01/14/17 [History] Potassium Chloride [Klor-Con 10] 10 meq PO BID 01/14/17 [History] Rosuvastatin Calcium [Crestor] 10 mg PO DAILY 01/14/17 [History] Sennosides/Docusate Sodium [Docusate Sodium-Senna Tablet] 1 tab PO BID 01/14/17 [History] Hx Tetanus, Diphtheria Vaccination/Date Given: Yes Hx Influenza Vaccination/Date Given: Yes Hx Pneumococcal Vaccination/Date Given: Yes Immunizations Up to Date: Yes - Review of Systems Constitutional: No Symptoms Eyes: No Symptoms Ears, Nose, & Throat: No Symptoms, No Epistaxis Respiratory: No Symptoms Cardiac: No Symptoms Abdominal/Gastrointestinal: No Symptoms, No Abdominal Pain, No Nausea, No Vomiting, No Diarrhea Genitourinary Symptoms: No Symptoms, No Dysuria, No Frequency, No Hematuria Musculoskeletal: Injury (left knee pain) Skin: Other (abrasions of forehead, nasal bridge and left ant knee) Neurological: No Symptoms, No Dizziness, No Headache, No Lethargy, No Seizure, No Speech Changes Psychological: No Symptoms Endocrine: No Symptoms Hematologic/Lymphatic: No Symptoms Immunological/Allergic: No Symptoms All Other Systems: Reviewed and Negative - Past Medical History Pertinent Past Medical History: Yes Neurological History: No Pertinent History ENT History: No Pertinent History Cardiac History: Hypertension Respiratory History: No Pertinent History Endocrine Medical History: Hypothyroidism Musculoskeletal History: Osteoarthritis GI Medical History: Other History: Other Psycho-Social History: No Pertinent History Female Reproductive Disorders: Other Other Medical History: MALIGNANT COLON POLYP REMOVAL. RENAL CYST. 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 - Social History Smoking Status: Never smoker Exposure to second hand smoke: Yes Drug Use: none Patient Lives Alone: Yes - Female History Hx Now: No - Nursing Vital Signs Nursing Vital Signs: Initial Vital Signs Temperature 98.1 F 08/22/18 18:05 Pulse Rate 86 08/22/18 18:05 Respiratory Rate 18 08/22/18 18:05 Blood Pressure 160/86 08/22/18 18:05 O2 Sat by Pulse Oximetry 98 08/22/18 18:05 Pain Scale Pain Intensity 7 - Carlos Coma Score Best Eye Response (Bryan): (4) open spontaneously Best Verbal Response (Bryan): (5) oriented Best Motor Response (Bryan): (6) obeys commands Bryan Total: 15 - Physical Exam General Appearance: no apparent distress, alert Head Injury: tenderness (at abrasion sites forehead, nasal bridge, nose and left ant knee) Eye Exam: PERRL/EOMI, eyes nml inspection ENT Exam: airway nml, evidence of ENT injury, hearing grossly normal, No dental injury, No clear fluid (ears), No clear fluid (nose), No midface instability, No decreased hearing, No hemotympanum, No clotted nasal blood, No oral injury Neck Exam: supple, trachea midline, full range of motion, normal alignment, normal inspection Respiratory/Chest Exam: normal breath sounds, No chest tenderness, No respiratory distress, No ecchymosis, No rhonchi, No wheezing, No accessory muscle use, No rib tenderness Cardiovascular Exam: normal heart sounds, regular rate/rhythm, normal peripheral pulses Gastrointestinal Exam: soft, normal bowel sounds, No tenderness, No guarding, No rebound Rectal Exam: not done Back Exam: normal inspection, normal range of motion, No CVA tenderness, No vertebral tenderness Extremity Exam: normal inspection, normal range of motion, pelvis stable Neurologic Exam: alert, oriented x 3, cooperative, logistics/shipper II-XII 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 as tested, normal mood/affect, nml cerebellar function, nml station & gait Skin Exam: abrasion (forehead, nasal bridge, nose and left ant knee) SpO2 Interpretation: normal SpO2: 98 Oxygen Delivery: Room Air - Course Nursing assessment & vital signs reviewed: Yes Ordered Tests: Active Orders 24 hr Category Date Time Status FACIAL BONES WO CONTRAST [CT] Stat Exams 08/22/18 18:28 Taken HEAD WITHOUT CONTRAST [CT] Stat Exams 08/22/18 18:28 Taken KNEE (3 VIEWS) Stat Exams 08/22/18 18:29 Taken - Progress Progress: improved, re-examined Counseled pt/family regarding: diagnosis, need for follow-up, rad results - Departure Time of Disposition: 20:11 Departure Disposition: Home Clinical Impression: Fall, Facial abrasion, Facial contusion Condition: Stable Critical Care Time: No Referrals: ARTURO SOLER MD [Primary Care Provider] - Additional Instructions: keep all abrasion sites clean daily with soap and water. apply antibiotic ointment to abrasion sites daily.
[2018-08-22 20:33] VITALS: BP 160/83; PULSE 82; O2SAT 96
--- NOTE | 2018-08-23 08:54 | XRAY ---
Indication: Forehead injury following fall. Multiple contiguous axial images obtained through the head without contrast. Comparison: None Age-appropriate global atrophy and minimal periventricular degenerative micro-ischemia. No acute intracranial hemorrhage, abnormal extra-axial fluid collection, or mass effect. Fourth ventricle is midline without hydrocephalus. Bony calvarium intact. Visualized paranasal sinuses and mastoid air cells are clear. Minimal forehead soft tissue swelling. Impression: Nonacute senile brain. CT DI 52.42
--- NOTE | 2018-08-23 09:02 | XRAY ---
Indication: Head injury following fall. Multiple contiguous axial images obtained through the facial bones. Comparison: None Minimal forehead soft tissue swelling. Minimally depressed old left nasal bone fracture. No acute fracture, suspicious bony lesions, or radiopaque foreign body. Orbits including roof, cavazos, and floors intact. Right maxillary sinus demonstrates a 1 cm right maxillary sinus polyp/retention cyst and minimal mucosal thickening. Remaining paranasal sinuses and nasal passages are clear. Minimal nasal septal deviation to the right. Advanced bilateral TMJ degenerative changes. Visualized cervical spine demonstrates multilevel degenerative spondylosis. Visualized noncontrasted soft tissues unremarkable. CT head reported separately. Impression: 1. Forehead soft tissue swelling. No acute fracture. 2. Incidental old left nasal bone fracture, multilevel cervical degenerative spondylosis, bilateral TMJ degenerative changes, and right maxillary sinus disease. CT DI 59.47
--- NOTE | 2018-08-23 09:05 | XRAY ---
Indication: Pain following fall. Comparison: None 3 views of the left knee demonstrates mild osteopenia, fabella, and mild tricompartmental degenerative changes greatest medial compartment. Possible nondisplaced suprapatellar osteophyte fracture with soft tissue swelling and small effusion. Remaining knee unremarkable.
== END 2018-08-22 20:34 | disposition home or self-care (01) ==
LOC: ED 17:59
DX: S00.33XA Contusion of nose, initial encounter (principal); S00.03XA Contusion of scalp, initial encounter; M25.562 Pain in left knee; R51 Headache; W01.0XXA Fall on same level from slipping, tripping and stumbling without subsequent striking against object, initial encounter; Y93.89 Activity, other specified; Y92.009 Unspecified place in unspecified non-institutional (private) residence as the place of occurrence of the external cause; Z79.899 Other long term (current) drug therapy
CPT/HCPCS: 70450; 70486; 73562; 99283

== ENCOUNTER 2018-08-31 13:55 | Inpatient (IN) | payer MEDICARE ==
[2018-08-31] MEDS ORDERED: Phenergan 25 MG INJ IM ONE (14:09)
--- NOTE | 2018-08-31 14:39 | ERPHSYRPT ---
- History of Present Illness Time Seen by Provider: 08/31/18 14:33 Source: patient Exam Limitations: no limitations Patient Subjective Stated Complaint: pt here for sob about a week now, she fell 08/22/18, she had blood work done and her d dimer was elevated and was told to come to er Triage Nursing Assessment: pt alert, resp easy, skin w/d/p. no edema noted, pt has bruising to face and bruising to legs lower legs, Physician History: This is a 85-year-old white female with history of high blood pressure, hypothyroidism, osteoarthritis, who fell approximately one week ago she states she's been short of breath for a week. She states that yesterday she began to complain of pain worse with breathing in her left lateral chest described as sharp. She apparently was seen by her family doctor who ordered CBC CMP d-dimer troponin she was noted to have a d-dimer of 4349 therefore she was sent to the emergency room. Past medical history includes high blood pressure, hypothyroidism, osteoarthritis. Past surgical history includes malignant colon polyp, renal cysts, postop urinary retention which is resolving, total right knee replacement Social history negative tobacco Timing/Duration: other (short of breath for a week . Left lateral chest pain worse with breathing since yesterday) Modifying Factors: Improves With: nothing Associated Symptoms: shortness of breath, chest pain (Left lateral chest pain sharp worse with breathing since yesterday), No nausea, No vomiting, No abdominal pain, No heartburn, No diaphoresis, No chills, No fever, No headaches , No loss of appetite, No malaise, No rash, No syncope, No seizure, No weakness Allergies/Adverse Reactions: cephalexin [From Keflex] Allergy (Verified 08/31/18 14:22) ciprofloxacin Allergy (Verified 08/31/18 14:22) Home Medications: Acetaminophen 325 mg [Tylenol 325 mg] 650 mg PO Q4HPRN PRN 01/14/17 [ History] Aspirin 325 mg PO DAILY 01/14/17 [History] Celecoxib [Celebrex] 200 mg PO DAILY 01/14/17 [History] Esomeprazole Magnesium [Nexium] 40 mg PO DAILY 01/14/17 [History] Ferrous Sulfate 325 mg [Feosol 325 mg] 325 mg PO DAILY 01/14/17 [History] Hydrochlorothiazide 12.5 mg PO DAILY 01/14/17 [History] Levothyroxine Sodium 50 mcg PO QAM 01/14/17 [History] Lisinopril 10 mg [Zestril 10 MG] 10 mg PO DAILY 01/14/17 [History] Metoprolol Succinate [Toprol Xl] 100 mg PO DAILY 01/14/17 [History] Montelukast Sodium [Singulair] 10 mg PO DAILY PRN PRN 01/14/17 [History] Potassium Chloride [Klor-Con 10] 10 meq PO BID 01/14/17 [History] Rosuvastatin Calcium [Crestor] 10 mg PO DAILY 01/14/17 [History] Sennosides/Docusate Sodium [Docusate Sodium-Senna Tablet] 1 tab PO BID 01/14/17 [History] Hx Tetanus, Diphtheria Vaccination/Date Given: No Hx Influenza Vaccination/Date Given: Yes Hx Pneumococcal Vaccination/Date Given: Yes Immunizations Up to Date: Yes - Review of Systems Constitutional: No Fever, No Chills Eyes: No Symptoms, Other (bilateral ecchymosis infraorbital area) Ears, Nose, & Throat: No Symptoms Respiratory: Dyspnea, Other (pain left lateral chest with breathing) Cardiac: Chest Pain (Pain left lateral chest, sharp worse with breathing since yesterday), No Edema, No Palpitations, No Syncope, No Orthopnea, No PND Abdominal/Gastrointestinal: No Abdominal Pain, No Nausea, No Vomiting, No Diarrhea Genitourinary Symptoms: No Dysuria Musculoskeletal: Other (left lateral rib pain), No Back Pain, No Neck Pain Skin: Other (ecchymosis bilateral infra orbital area) Neurological: No Dizziness, No Focal Weakness, No Sensory Changes Psychological: No Symptoms Endocrine: No Symptoms All Other Systems: Reviewed and Negative - Past Medical History Pertinent Past Medical History: Yes Neurological History: No Pertinent History ENT History: No Pertinent History Cardiac History: Hypertension Respiratory History: No Pertinent History Endocrine Medical History: Hypothyroidism Musculoskeletal History: Osteoarthritis GI Medical History: Other History: Other Psycho-Social History: No Pertinent History Female Reproductive Disorders: Other Other Medical History: MALIGNANT COLON POLYP REMOVAL. RENAL CYST. 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 - Social History Smoking Status: Never smoker Exposure to second hand smoke: No Drug Use: none Patient Lives Alone: No - Female History Hx Last Menstrual Period: post - Nursing Vital Signs Nursing Vital Signs: Initial Vital Signs Temperature 98.8 F 08/31/18 14:16 Pulse Rate 101 H 08/31/18 14:16 Respiratory Rate 22 08/31/18 14:16 Blood Pressure 181/93 08/31/18 14:16 O2 Sat by Pulse Oximetry 97 08/31/18 14:16 Pain Scale Pain Intensity 3 - Physical Exam General Appearance: no apparent distress, alert, other (brownish ecchymosis bilateral infraorbital area) Eye Exam: PERRL/EOMI, eyes nml inspection Ears, Nose, Throat Exam: normal ENT inspection, TMs normal, pharynx normal, moist mucous membranes Neck Exam: normal inspection, non-tender, supple, full range of motion Respiratory Exam: normal breath sounds, chest tenderness (Pain left lateral chest with breathing), lungs clear, No respiratory distress Cardiovascular Exam: regular rate/rhythm, normal heart sounds, normal peripheral pulses Gastrointestinal/Abdomen Exam: soft, normal bowel sounds, No tenderness, No mass Back Exam: normal inspection, normal range of motion, No CVA tenderness, No vertebral tenderness Extremity Exam: normal inspection (what), normal range of motion, pelvis stable Neurologic Exam: alert, oriented x 3, cooperative, administrative services officer II-XII nml as tested, normal mood/affect, nml cerebellar function, nml station & gait, sensation nml, No motor deficits Skin Exam: normal color, warm, dry, No rash SpO2 Interpretation: normal (97%) SpO2: 97 Oxygen Delivery: Room Air - Course Nursing assessment & vital signs reviewed: Yes EKG Interpreted by Me: RATE (98 bpm), Sinus Rhythm, NORMAL AXIS, Other (EKG: Sinus rhythm, 98 bpm, moderate amount of art normal axis, no acute ST or T wave changes.) - CT Exams Chest CT Interpretation: Discussed w/radiologist (CTA chest: Impression: 1. Diffuse nonoccluding bilateral pulmonary emboli. No distal pulmonary infarct. 2. Small focus lingula infiltrate versus atelectasis with tiny left effusion 3. large hiatal hernia with partial intrathoracic stomach 4. Incompletely visualiz abnormal enhancing right renal mass, worrisome for malignancy. 5. Fatty liver) Ordered Tests: Active Orders 24 hr Category Date Time Status EKG-ER Only STAT Care 08/31/18 14:29 Active IV Insertion STAT Care 08/31/18 14:29 Active CHEST WITH CONTRAST [CT] Stat Exams 08/31/18 15:05 Completed PROTIME WITH INR Stat Lab 08/31/18 16:15 Completed PTT Stat Lab 08/31/18 16:15 Completed Medication Summary Discontinued Medications Generic Name Dose Route Start Last Admin Trade Name Freq PRN Reason Stop Dose Admin Enoxaparin Sodium 70 mg 08/31/18 16:29 08/31/18 16:37 Enoxaparin Sodium 1 mg/kg (70 mg) 08/31/18 16:30 70 mg SQ Administration STAT ONE Enoxaparin Sodium Confirm 08/31/18 16:36 Enoxaparin Sodium Administered 08/31/18 16:37 Dose 80 mg SQ .STK-MED ONE Promethazine HCl 25 mg 08/31/18 14:09 08/31/18 14:17 Phenergan 25 Mg Inj IM 08/31/18 14:10 Not Given STAT ONE Lab/Rad Data: Laboratory Results 08/31/18 Range/Units 16:15 PT 13.7 H (9.95-12.35) SECONDS INR 1.18 (0.8-3.0) APTT 25.9 (25.3-37.0) SECONDS - Progress Progress: improved Progress Note: 08/31/18 16:25 82-year-old white female with history of recent fall was complains of shortness of breath for a week. She is complaining of left sided chest pain worse with breathing since yesterday. Initial labs were obtained pain by Dr. Soler which appeared to be stable this included CBC and CMP. Chest x-ray was ordered as well by Dr. Soler which showed some atelectasis in the bases however in no acute changes. Unfortunately patient's d-dimer was elevated. CT of the patient's chest remarkable for 1. Diffuse nonoccluding bilateral pulmonary emboli. No distal pulmonary infarct. 2. Small focus lingula infiltrate versus atelectasis with tiny left effusion.. 3. Large hiatal hernia with partial intrathoracic stomach. 4. Incompletely visualized abnormal enhancing right renal mass worrisome for malignancy (patient is aware of this as is Dr. Soler and at this is been worked up by Dr. Russo) 5. Fatty liver. I've discussed the patient's case with Dr. Soler he would like to admit patient place patient on Lovenox place patient on telemetry. - Departure Time of Disposition: 16:27 Departure Disposition: In-patient Admission Clinical Impression: Shortness of breath, Left sided chest pain Pulmonary embolism Qualifiers: Pulmonary embolism type: unspecified Chronicity: acute Acute cor pulmonale presence: without acute cor pulmonale Qualified Code(s): I26.99 - Other pulmonary embolism without acute cor pulmonale Condition: Fair Critical Care Time: No Referrals: ARTURO SOLER MD [Primary Care Provider] -
--- NOTE | 2018-08-31 16:23 | XRAY ---
Indication: Left lower pain following fall 9 days ago. Short of breath. Elevated d-dimer 4349. Multiple contiguous axial images obtained through the chest using 80 cc of Isovue-370 contrast and PE protocol. Comparison: None There is good opacification of the pulmonary arteries. Nonoccluding pulmonary emboli seen in the distal left main pulmonary artery and also all lobar branches, greatest in both lower lobes. Heart is not enlarged. Aorta is normal in course and caliber. No pathologic mediastinal/hilar lymphadenopathy. Large hiatal hernia with partial intrathoracic stomach in the medial left base. Examination of the lung parenchyma demonstrates bibasilar dependent atelectasis, left base greater than right. Also small focus lingula infiltrate/atelectasis and tiny left effusion. No suspicious pulmonary mass or nodule. Bony thorax intact with degenerative changes throughout the spine. Limited upper abdomen demonstrates mild diffuse fatty liver. Also incompletely visualized abnormal enhancing 3.3 cm right mid renal mass worrisome for malignancy. Impression: 1. Diffuse nonoccluding bilateral pulmonary emboli. No distal pulmonary infarct. 2. Small focus lingula infiltrate versus atelectasis with tiny left effusion. 3. Large hiatal hernia with partial intrathoracic stomach. 4. Incompletely visualized abnormal enhancing right renal mass worrisome for malignancy. 5. Fatty liver. Comment: Telephone report given to ordering clinician, Dr. Martinez at 1413 hrs. on August 31, 2018. CTDI 13.33
[2018-08-31 16:29] LABS: INR 1.18 (0.8-3.0); PROTIME 13.7 SECONDS (9.95-12.35)
[2018-08-31] MEDS ORDERED: ENOXAPARIN SODIUM SQ ONE ×2 (16:29→16:36)
[2018-08-31 16:32] LABS: PTT 25.9 SECONDS (25.3-37.0)
[2018-08-31] MEDS ORDERED: ENOXAPARIN SODIUM SQ SCH (17:54)
[2018-08-31] MEDS: Sodium Chloride 0.9% 1000 ML 1,000 ML IV SCH (18:26)
[2018-08-31] MEDS: Klor Con 10 MEQ PO SCH (21:21)
[2018-09-01] MEDS: Sodium Chloride 0.9% 1000 ML 1,000 ML IV SCH ×2 (03:42→14:58)
[2018-09-01] MEDS: MORPHINE SULFATE 2 MG INJ IV PRN ×2 (04:13→10:01)
[2018-09-01] MEDS: ENOXAPARIN SODIUM SQ SCH ×2 (04:15→18:01)
[2018-09-01 06:52] LABS: Hematocrit 32.4 % (35-47); Hemoglobin 10.6 gm/dl (12.0-16.0); Mean Corpuscular Hgb Concent. 32.7 g/dl (32-36); Mean Platelet Volume 8.5 fl (6-9.5); Platelet Count 276 K/mm3 (150-450); Red Blood Count 3.56 M/mm3 (4.1-5.4); Red Cell Distribution Width 14.1 % (11.5-14.0); White Blood Count 13.9 K/mm3 (4.0-10.5)
[2018-09-01 06:59] LABS: Mean Corpuscular Hemoglobin 29.7 pg (26-32)
[2018-09-01 07:22] LABS: ALBUMIN 3.1 g/dL (3.5-5.0); ALKALINE PHOSPHATASE 128 U/L (38-126); ANION GAP 9.4 MEQ/L (5-15); BLOOD UREA NITROGEN 9 mg/dL (7-17); CHLORIDE 95 mmol/L (98-107); Calcium 8.3 mg/dL (8.4-10.2); Carbon Dioxide 27 mmol/L (22-30); Creatinine 1 0.69 mg/dL (0.52-1.04); Glucose 124 mg/dL (74-106); Potassium 3.2 mmol/L (3.5-5.1); SGOT/AST 50 U/L (14-36); SGPT/ALT 33 U/L (0-35); SODIUM 128 mmol/L (137-145); Total Protein 6.2 g/dL (6.3-8.2)
[2018-09-01 07:30] LABS: BAND 4 % (0.0-2.0); Lymphocytes 12 % (24-44); Monocyte 11 % (0.0-12.0); Neutrophils 73 % (36.0-66.0); Total Cells Counted 100
[2018-09-01 07:31] LABS: ANISOCYTOSIS 1+; Platelet Estimate NORMAL (NORMAL); Poikilocytosis 1+
[2018-09-01 07:32] LABS: Polychromasia RARE
--- NOTE | 2018-09-01 08:36 | PCM.HP ---
History of Present Illness - Chief Complaint Chief Complaint: shortness of breath History of Present Illness: is a 82 year old female who fell in her driveway while cleaning her car on 08/22, she had significant bruising, was seen in ER and had no fractures or internal bleeding. she came to my office yesterday with shortness of breath much worse with minimal exertion and pleuritic left chest pain. her oxygen sats were low 90's in the office, sent for labs and d-dimer was significantly elevated so she was directed to the ER where chest CT showed yin PE. - Review of Systems Constitutional: No Fever, No Chills Respiratory: Cough Cardiac: Chest Pain Abdominal/Gastrointestinal: No Abdominal Pain, No Nausea, No Vomiting, No Diarrhea Genitourinary Symptoms: No Dysuria Skin: No Rash All Other Systems: Reviewed and Negative Medications & Allergies Home Medications: Home Medication List Celecoxib [Celebrex] 200 mg PO DAILY 01/14/17 [History Confirmed 08/31/18] Esomeprazole Magnesium [Nexium] 40 mg PO DAILY 01/14/17 [History Confirmed 08/31] Hydrochlorothiazide 12.5 mg PO DAILY 01/14/17 [History Confirmed 08/31/18] Levothyroxine Sodium 50 mcg PO QAM 01/14/17 [History Confirmed 08/31/18] Metoprolol Succinate [Toprol Xl] 100 mg PO DAILY 01/14/17 [History Confirmed ] Potassium Chloride [Klor-Con 10] 10 meq PO BID 01/14/17 [History Confirmed 08/31] Rosuvastatin Calcium [Crestor] 10 mg PO DAILY 01/14/17 [History Confirmed ] Lisinopril [Prinivil] 10 mg PO DAILY 08/31/18 [History Confirmed 08/31/18] Allergies/Adverse Reactions: Allergies Allergy/AdvReac Type Severity Reaction Status Date / Time cephalexin [From Keflex] Allergy Verified 08/31/18 14:22 ciprofloxacin Allergy Verified 08/31/18 14:22 - Past Medical History Past Medical History: Yes Neurological History: No Pertinent History ENT History: No Pertinent History Cardiac History: Hypertension Respiratory History: No Pertinent History Endocrine Medical History: Hypothyroidism Musculoskelatal History: Osteoarthritis GI Medical History: Other History: Other Pyscho-Social History: No Pertinent History Reproductive Disorders: Other Comment: MALIGNANT COLON POLYP REMOVAL. RENAL CYST. RECENT: POST-OP URINARY RETENTION - RESOLVING - Female History Hx Last Menstrual Period: post Are you now?: No - Past Surgical History Past Surgical History: Yes Neuro Surgical History: No Pertinent History Cardiac History: No Pertinent History Respiratory Surgery: No Pertinent History GI Surgical History: No Pertinent History Genitourinary Surgical Hx: No Pertinent History Musculskeletal Surgical Hx: Joint Replacement Female Surgical History: No Pertinent History Other Surgical History: total right knee replacement, 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 - Social History Smoking Status: Never smoker Exposure to second hand smoke: No Alcohol: None Drug Use: none - Physical Exam Vital Signs: Vital Signs - 24 hr Temp Pulse Resp BP Pulse Ox 09/01/18 08:00 20 09/01/18 07:57 92 L 09/01/18 07:49 99.6 F 85 20 112/57 88 L 09/01/18 07:19 95 09/01/18 04:00 99.4 F 88 17 128/61 94 L 09/01/18 00:00 98.1 F 92 H 25 H 127/62 94 L 08/31/18 20:00 98.6 F 110 H 20 144/64 95 08/31/18 19:12 88 18 97 08/31/18 18:05 98.6 F 110 H 144/64 97 08/31/18 17:54 64 16 126/70 95 08/31/18 16:44 97 08/31/18 16:40 98.6 F 110 H 20 144/64 95 08/31/18 16:30 70 18 132/68 94 L 08/31/18 15:56 70 18 170/85 97 08/31/18 14:16 98.8 F 101 H 22 181/93 97 Oxygen-Last 24 hours O2 Percentage 2 Liters = 28% O2 Percentage 2 Liters = 28% General Appearance: no apparent distress, alert Neurologic Exam: alert, oriented x 3, cooperative, normal mood/affect, nml cerebellar function, nml station & gait, sensation nml, No motor deficits Eye Exam: PERRL/EOMI, eyes nml inspection Respiratory Exam: normal breath sounds, lungs clear, No respiratory distress Cardiovascular Exam: regular rate/rhythm, normal heart sounds, normal peripheral pulses Gastrointestinal/Abdomen Exam: soft, normal bowel sounds, No tenderness, No mass Extremity Exam: normal inspection, normal range of motion, pelvis stable Skin Exam: normal color, warm, dry, No rash Results - Labs Lab/Micro Results: Lab Results-Last 24 Hours 08/31/18 09/01/18 09/01/18 Range/Units 16:15 04:00 06:00 WBC 13.9 H (4.0-10.5) K/mm3 RBC 3.56 L (4.1-5.4) M/mm3 Hgb 10.6 L (12.0-16.0) gm/dl Hct 32.4 L (35-47) % MCV 91.0 (78-100) fl MCH 29.7 (26-32) pg MCHC 32.7 (32-36) g/dl RDW 14.1 H (11.5-14.0) % Plt Count 276 (150-450) K/mm3 MPV 8.5 (6-9.5) fl Absolute Granulocytes 10.7 H (1.4-6.9) Segmented Neutrophils 73 H (36.0-66.0) % Band Neutrophils 4 H (0.0-2.0) % Lymphocytes (Manual) 12 L (24-44) % Monocytes (Manual) 11 (0.0-12.0) % Platelet Estimate NORMAL (NORMAL) RBC Morphology ABNORMAL Polychromasia RARE Poikilocytosis 1+ Anisocytosis 1+ PT 13.7 H (9.95-12.35) SECONDS INR 1.18 (0.8-3.0) APTT 25.9 (25.3-37.0) SECONDS Sodium 128 L (137-145) mmol/L Potassium 3.2 L (3.5-5.1) mmol/L Chloride 95 L (98-107) mmol/L Carbon Dioxide 27 (22-30) mmol/L Anion Gap 9.4 (5-15) MEQ/L BUN 9 (7-17) mg/dL Creatinine 0.69 (0.52-1.04) mg/dL Estimated GFR > 60.0 ML/MIN Glucose 124 H (74-106) mg/dL Calcium 8.3 L (8.4-10.2) mg/dL Total Bilirubin 1.40 H (0.2-1.3) mg/dL AST 50 H (14-36) U/L ALT 33 (0-35) U/L Alkaline Phosphatase 128 H (38-126) U/L Serum Total Protein 6.2 L (6.3-8.2) g/dL Albumin 3.1 L (3.5-5.0) g/dL - Radiology Impressions Radiology Exams & Impressions: Radiology Procedures Category Date Time Status CHEST WITH CONTRAST [CT] Stat Exams 08/31/18 15:05 Completed - Other Procedures and Tests Respiratory Therapy 09/01/18 07:19 Oxygen NASAL CANNULA 2 lpm Assessment/Plan (1) Pneumonia Current Visit: Yes Status: Acute Assessment & Plan: will start rocephin and zithromax today based on chest ct lingular infiltrate and mild cough. Code(s): J18.9 - PNEUMONIA, UNSPECIFIED ORGANISM (2) Pulmonary embolism Current Visit: Yes Status: Acute Qualifiers: Pulmonary embolism type: unspecified Chronicity: acute Acute cor pulmonale presence: without acute cor pulmonale Qualified Code(s): I26.99 - Other pulmonary embolism without acute cor pulmonale Assessment & Plan: continue lovenox at this time, likely will discharge on eliquis Code(s): I26.99 - OTHER PULMONARY EMBOLISM WITHOUT ACUTE COR PULMONALE (3) Fall Current Visit: No Status: Acute Code(s): W19.XXXA - UNSPECIFIED FALL, INITIAL ENCOUNTER
[2018-09-01] MEDS ORDERED: DUONEB 0.5-3 MG/3 ml Neb IH PRN (08:38)
[2018-09-01] MEDS: Zithromax 500 MG/ 250 ML NaCl Premix 500 MG/250 ML IVPB IV SCH (09:50)
[2018-09-01] MEDS: Zestril 10 MG PO SCH (09:51)
[2018-09-01] MEDS: hydroDIURIL 25 MG PO SCH (09:51)
[2018-09-01] MEDS: Klor Con 10 MEQ PO SCH ×2 (09:51→21:42)
[2018-09-01] MEDS: SYNTHROID 50 MCG PO SCH (09:52)
[2018-09-01] MEDS: Protonix 40MG Tablet PO SCH (09:52)
[2018-09-01] MEDS: Toprol Xl 100 MG PO SCH (09:52)
[2018-09-01] MEDS ORDERED: ROCEPHIN 1 Gm-D5w 50 ml Bag** 1 G/50 ML IVPB IV SCH (10:00)
[2018-09-01] MEDS: Zosyn 3.375GM/100 Ml D5W 3.375 GM/100 ML IVPB IV SCH ×3 (10:55→23:12)
[2018-09-01] MEDS: ZOCOR 20MG PO SCH (21:42)
[2018-09-02] MEDS: Sodium Chloride 0.9% 1000 ML 1,000 ML IV SCH (02:29)
[2018-09-02] MEDS: TYLENOL 325 MG PO PRN ×2 (05:41→21:30)
[2018-09-02] MEDS: Zosyn 3.375GM/100 Ml D5W 3.375 GM/100 ML IVPB IV SCH ×3 (05:42→17:50)
[2018-09-02] MEDS: ENOXAPARIN SODIUM SQ SCH ×2 (05:42→17:56)
[2018-09-02 06:16] LABS: Hemoglobin 10.1 gm/dl (12.0-16.0); Mean Cell Volume 91.4 fl (78-100); Mean Corpuscular Hgb Concent. 32.6 g/dl (32-36); Mean Platelet Volume 8.4 fl (6-9.5); Platelet Count 282 K/mm3 (150-450); Red Blood Count 3.39 M/mm3 (4.1-5.4); Red Cell Distribution Width 13.9 % (11.5-14.0); White Blood Count 15.3 K/mm3 (4.0-10.5)
[2018-09-02 06:27] LABS: Mean Corpuscular Hemoglobin 29.7 pg (26-32)
[2018-09-02] MEDS: Zofran 4 MG/2 ML VIAL IV PRN (06:27)
[2018-09-02 06:39] LABS: ALBUMIN 2.8 g/dL (3.5-5.0); ALKALINE PHOSPHATASE 164 U/L (38-126); ANION GAP 10.7 MEQ/L (5-15); BLOOD UREA NITROGEN 9 mg/dL (7-17); CHLORIDE 95 mmol/L (98-107); Calcium 8.2 mg/dL (8.4-10.2); Carbon Dioxide 25 mmol/L (22-30); Creatinine 1 0.71 mg/dL (0.52-1.04); Glucose 125 mg/dL (74-106); SGOT/AST 48 U/L (14-36); SGPT/ALT 40 U/L (0-35); SODIUM 128 mmol/L (137-145); Total Protein 5.7 g/dL (6.3-8.2)
[2018-09-02 07:39] LABS: BAND 1 % (0.0-2.0); Basophil 1 % (0.0-1.0); Lymphocytes 13 % (24-44); Monocyte 5 % (0.0-12.0); Neutrophils 80 % (36.0-66.0); Total Cells Counted 100
[2018-09-02 07:40] LABS: Platelet Estimate NORMAL (NORMAL)
[2018-09-02] MEDS: POTASSIUM CHLORIDE 20 mEq IN WATER 100ML 20 MEQ/100 ML BAG IV SCH ×2 (07:53→10:09)
[2018-09-02] MEDS ORDERED: Colace 100 MG PO ONE (10:00)
[2018-09-02] MEDS: Zestril 10 MG PO SCH (10:12)
[2018-09-02] MEDS: SYNTHROID 50 MCG PO SCH (10:12)
--- NOTE | 2018-09-02 10:16 | PCM.NOTE ---
Date and Time: 09/02/18 1003 Subjective Assessment: still weak sore and short of breath at times but in good spirits still needing 2 L nc O2 eating well no bleeding Objective Exam General Appearance: no apparent distress, alert Neurologic Exam: alert, oriented x 3, cooperative, normal mood/affect, nml cerebellar function, sensation nml, No motor deficits Skin Exam: normal color, warm, dry Eye Exam: PERRL, EOMI, eyes nml inspection Ears, Nose, Throat Exam: normal ENT inspection, pharynx normal, moist mucous membranes Neck Exam: normal inspection, non-tender, supple, full range of motion Respiratory Exam: normal breath sounds, lungs clear, No respiratory distress Cardiovascular Exam: regular rate/rhythm, normal heart sounds Gastrointestinal/Abdomen Exam: soft, No tenderness, No mass Extremity Exam: normal inspection, normal range of motion Back Exam: normal inspection, normal range of motion, No CVA tenderness, No vertebral tenderness Pelvic Exam: deferred Rectal Exam: deferred OBJECTIVE DATA Vital Signs: Vital Signs - 24 hr Temp Pulse Resp BP Pulse Ox 09/02/18 07:39 86 20 97 09/02/18 07:14 98.8 F 86 20 139/66 98 09/02/18 04:22 100.3 F 89 20 125/60 96 09/02/18 00:00 99.9 F 90 18 116/55 97 09/01/18 19:54 99.6 F 78 20 124/61 96 09/01/18 19:25 88 18 96 09/01/18 16:00 98.5 F 95 H 20 153/57 96 09/01/18 12:00 99.3 F 82 18 107/58 96 Oxygen-Last 24 hours O2 Percentage 2 Liters = 28% O2 Percentage 2 Liters = 28% O2 Percentage 2 Liters = 28% O2 Percentage 2 Liters = 28% O2 Percentage 2 Liters = 28% Pain Assessment - Last Documented Pain Intensity 3 Pain Scale Used [facility] Intake and Output: Intake & Output 08/30/18 08/31/18 09/01/18 09/02/18 11:59 11:59 11:59 11:59 Intake Total 1704 3745 Output Total 700 700 Balance 1004 3045 Weight 78.4 kg 78.9 kg Lab Results: Lab Results-Last 24 Hours 09/02/18 09/02/18 Range/Units 05:45 05:45 WBC 15.3 H (4.0-10.5) K/mm3 RBC 3.39 L (4.1-5.4) M/mm3 Hgb 10.1 L (12.0-16.0) gm/dl Hct 31.0 L (35-47) % MCV 91.4 (78-100) fl MCH 29.7 (26-32) pg MCHC 32.6 (32-36) g/dl RDW 13.9 (11.5-14.0) % Plt Count 282 (150-450) K/mm3 MPV 8.4 (6-9.5) fl Segmented Neutrophils 80 H (36.0-66.0) % Band Neutrophils 1 (0.0-2.0) % Lymphocytes (Manual) 13 L (24-44) % Monocytes (Manual) 5 (0.0-12.0) % Basophils (Manual) 1 (0.0-1.0) % Platelet Estimate NORMAL (NORMAL) RBC Morphology NORMAL Sodium 128 L (137-145) mmol/L Potassium 3.0 L (3.5-5.1) mmol/L Chloride 95 L (98-107) mmol/L Carbon Dioxide 25 (22-30) mmol/L Anion Gap 10.7 (5-15) MEQ/L BUN 9 (7-17) mg/dL Creatinine 0.71 (0.52-1.04) mg/dL Estimated GFR > 60.0 ML/MIN Glucose 125 H (74-106) mg/dL Calcium 8.2 L (8.4-10.2) mg/dL Total Bilirubin 2.50 H (0.2-1.3) mg/dL AST 48 H (14-36) U/L ALT 40 H (0-35) U/L Alkaline Phosphatase 164 H (38-126) U/L Serum Total Protein 5.7 L (6.3-8.2) g/dL Albumin 2.8 L (3.5-5.0) g/dL Radiology Exams: Radiology Procedures Category Date Time Status CHEST WITH CONTRAST [CT] Stat Exams 08/31/18 15:05 Completed Assessment/Plan (1) Pulmonary embolism Current Visit: Yes Status: Acute Qualifiers: Pulmonary embolism type: unspecified Chronicity: acute Acute cor pulmonale presence: without acute cor pulmonale Qualified Code(s): I26.99 - Other pulmonary embolism without acute cor pulmonale Assessment & Plan: continue therapeutic lovenox Dr. diego planned on sending home on eliquis per note will send script in today to [facility] to be sure it is affordable at discharge for her continue ceftriaxone and azithromycin for the pneumonia O2 wean as tolerated replacing K iv stop hctz monitor bp recheck labs in am for hyponatremia Code(s): I26.99 - OTHER PULMONARY EMBOLISM WITHOUT ACUTE COR PULMONALE (2) Pneumonia Current Visit: Yes Status: Acute Code(s): J18.9 - PNEUMONIA, UNSPECIFIED ORGANISM (3) Hypokalemia Current Visit: Yes Status: Acute Code(s): E87.6 - HYPOKALEMIA (4) Hyponatremia Current Visit: Yes Status: Acute Code(s): E87.1 - HYPO-OSMOLALITY AND HYPONATREMIA (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 Russo as outpatient since 2005 on this Code(s): N28.89 - OTHER SPECIFIED DISORDERS OF KIDNEY AND URETER (6) HTN (hypertension) Current Visit: Yes Status: Chronic Qualifiers: Hypertension type: essential hypertension Qualified Code(s): I10 - Essential (primary) hypertension Code(s): I10 - ESSENTIAL (PRIMARY) HYPERTENSION
[2018-09-02] MEDS: Toprol Xl 100 MG PO SCH (11:20)
[2018-09-02] MEDS: Klor Con 10 MEQ PO SCH ×2 (11:20→21:30)
[2018-09-02] MEDS: Protonix 40MG Tablet PO SCH (11:20)
[2018-09-02] MEDS: Zithromax 500 MG/ 250 ML NaCl Premix 500 MG/250 ML IVPB IV SCH (11:21)
[2018-09-02] MEDS: hydroDIURIL 25 MG PO SCH (11:31)
[2018-09-02] MEDS: ZOCOR 20MG PO SCH (21:30)
[2018-09-03] MEDS: Zosyn 3.375GM/100 Ml D5W 3.375 GM/100 ML IVPB IV SCH ×4 (00:09→17:21)
[2018-09-03] MEDS: ENOXAPARIN SODIUM SQ SCH ×2 (05:47→17:18)
[2018-09-03 06:09] LABS: BASOPHIL % 0.2 % (0.0-0.4); Basophil (Absolute #) 0.03 (0-0.4); Eosinophil % 1.8 % (0.00-5.0); Eosinophil (Absolute #) 0.25 (0-0.5); Granulocytes % 71.8 % (36.0-66.0); Hematocrit 29.2 % (35-47); Hemoglobin 9.5 gm/dl (12.0-16.0); Lymphocyte (Absolute #) 2.15 (1.0-4.6); Lymphocytes % 15.9 % (24.0-44.0); Mean Cell Volume 92.1 fl (78-100); Mean Corpuscular Hgb Concent. 32.5 g/dl (32-36); Mean Platelet Volume 8.6 fl (6-9.5); Monocyte (Absolute #) 1.39 (0.0-1.3); Monocytes % 10.3 % (0.0-12.0); Platelet Count 311 K/mm3 (150-450); Red Blood Count 3.17 M/mm3 (4.1-5.4); Red Cell Distribution Width 13.6 % (11.5-14.0); White Blood Count 13.6 K/mm3 (4.0-10.5)
[2018-09-03 06:23] LABS: ANION GAP 9.3 MEQ/L (5-15); BLOOD UREA NITROGEN 8 mg/dL (7-17); CHLORIDE 98 mmol/L (98-107); Calcium 8.4 mg/dL (8.4-10.2); Carbon Dioxide 26 mmol/L (22-30); Creatinine 1 0.68 mg/dL (0.52-1.04); Glucose 95 mg/dL (74-106); MAGNESIUM 1.7 mg/dL (1.6-2.3); Potassium 3.5 mmol/L (3.5-5.1); SODIUM 130 mmol/L (137-145)
[2018-09-03 06:25] LABS: Mean Corpuscular Hemoglobin 29.9 pg (26-32)
[2018-09-03] MEDS: SYNTHROID 50 MCG PO SCH (09:46)
[2018-09-03] MEDS: Protonix 40MG Tablet PO SCH (09:46)
[2018-09-03] MEDS: Klor Con 10 MEQ PO SCH ×2 (09:46→22:16)
[2018-09-03] MEDS: Zithromax 500 MG/ 250 ML NaCl Premix 500 MG/250 ML IVPB IV SCH (09:51)
[2018-09-03] MEDS: Zestril 10 MG PO SCH (10:41)
[2018-09-03] MEDS: Toprol Xl 100 MG PO SCH (10:41)
--- NOTE | 2018-09-03 10:57 | PCM.NOTE ---
Date and Time: 09/03/18 1054 Subjective Assessment: still weak and sore and short of breath but improving was able to walk today without oxygen on her hgb decreased no evidence of ongoing blood loss Objective Exam General Appearance: no apparent distress Neurologic Exam: alert, oriented x 3, cooperative Skin Exam: warm, dry, ecchymosis (face, arms neck back) Eye Exam: No scleral icterus Ears, Nose, Throat Exam: moist mucous membranes Neck Exam: non-tender, supple Respiratory Exam: normal breath sounds, lungs clear Cardiovascular Exam: regular rate/rhythm, normal heart sounds Gastrointestinal/Abdomen Exam: No tenderness, No mass, No guarding, No rebound Extremity Exam: normal inspection, No calf tenderness OBJECTIVE DATA Vital Signs: Vital Signs - 24 hr Temp Pulse Resp BP Pulse Ox 09/03/18 08:20 77 18 95 09/03/18 07:08 97.8 F 77 18 127/59 96 09/03/18 04:15 98.4 F 77 20 109/56 95 09/02/18 23:56 98.9 F 83 20 108/53 96 09/02/18 23:10 77 18 94 L 09/02/18 20:00 99.6 F 87 18 131/60 95 09/02/18 16:31 97.8 F 74 18 135/61 95 09/02/18 12:28 97.6 F 82 20 123/56 94 L Oxygen-Last 24 hours O2 Percentage 1 Liter = 24% O2 Percentage 2 Liters = 28% Pain Assessment - Last Documented Pain Intensity 2 Pain Scale Used 0-10 Pain Scale Intake and Output: Intake & Output 08/31/18 09/01/18 09/02/18 09/03/18 11:59 11:59 11:59 11:59 Intake Total 1704 3745 2903 Output Total 678 204 2035 Balance 1004 3045 1003 Weight 78.4 kg 78.9 kg 78 kg Lab Results: Lab Results-Last 24 Hours 09/02/18 09/03/18 09/03/18 Range/Units 13:56 05:40 05:40 WBC 13.6 H (4.0-10.5) K/mm3 RBC 3.17 L (4.1-5.4) M/mm3 Hgb 9.5 L (12.0-16.0) gm/dl Hct 29.2 L (35-47) % MCV 92.1 (78-100) fl MCH 29.9 (26-32) pg MCHC 32.5 (32-36) g/dl RDW 13.6 (11.5-14.0) % Plt Count 311 (150-450) K/mm3 MPV 8.6 (6-9.5) fl Gran % 71.8 H (36.0-66.0) % Eos # (Auto) 0.25 (0-0.5) Absolute Lymphs (auto) 2.15 (1.0-4.6) Absolute Monos (auto) 1.39 H (0.0-1.3) Lymphocytes % 15.9 L (24.0-44.0) % Monocytes % 10.3 (0.0-12.0) % Eosinophils % 1.8 (0.00-5.0) % Basophils % 0.2 (0.0-0.4) % Absolute Granulocytes 9.73 H (1.4-6.9) Basophils # 0.03 (0-0.4) Sodium 130 L (137-145) mmol/L Potassium 3.6 3.5 (3.5-5.1) mmol/L Chloride 98 (98-107) mmol/L Carbon Dioxide 26 (22-30) mmol/L Anion Gap 9.3 (5-15) MEQ/L BUN 8 (7-17) mg/dL Creatinine 0.68 (0.52-1.04) mg/dL Estimated GFR > 60.0 ML/MIN Glucose 95 (74-106) mg/dL Calcium 8.4 (8.4-10.2) mg/dL Magnesium 1.7 (1.6-2.3) mg/dL Assessment/Plan (1) Pulmonary embolism Current Visit: Yes Status: Acute Qualifiers: Pulmonary embolism type: unspecified Chronicity: acute Acute cor pulmonale presence: without acute cor pulmonale Qualified Code(s): I26.99 - Other pulmonary embolism without acute cor pulmonale Assessment & Plan: on lovenox for now with the hgb decreased slightll again monitor the hgb we did check on the Eliquis at [facility] and she will be able to afford the copay so will plan on that at discharge unles a change continue the zosyn for the pneumonia wbc wtill elevated but clinically improving. bp remains lower off the hctz K improved Code(s): I26.99 - OTHER PULMONARY EMBOLISM WITHOUT ACUTE COR PULMONALE (2) Pneumonia Current Visit: Yes Status: Acute Code(s): J18.9 - PNEUMONIA, UNSPECIFIED ORGANISM (3) Hypokalemia Current Visit: Yes Status: Resolved Code(s): E87.6 - HYPOKALEMIA (4) Hyponatremia Current Visit: Yes Status: Acute Code(s): E87.1 - HYPO-OSMOLALITY AND HYPONATREMIA (5) Renal mass Current Visit: Yes Status: Chronic Code(s): N28.89 - OTHER SPECIFIED DISORDERS OF KIDNEY AND URETER (6) HTN (hypertension) Current Visit: Yes Status: Chronic Qualifiers: Hypertension type: essential hypertension Qualified Code(s): I10 - Essential (primary) hypertension Code(s): I10 - ESSENTIAL (PRIMARY) HYPERTENSION
[2018-09-03] MEDS: TYLENOL 325 MG PO PRN (12:12)
[2018-09-03] MEDS: ZOCOR 20MG PO SCH (22:17)
[2018-09-04] MEDS: Zosyn 3.375GM/100 Ml D5W 3.375 GM/100 ML IVPB IV SCH ×4 (01:10→17:39)
[2018-09-04] MEDS: ENOXAPARIN SODIUM SQ SCH ×2 (05:36→17:39)
[2018-09-04 06:24] LABS: ANION GAP 12.4 MEQ/L (5-15); BLOOD UREA NITROGEN 6 mg/dL (7-17); CHLORIDE 97 mmol/L (98-107); Calcium 8.4 mg/dL (8.4-10.2); Carbon Dioxide 26 mmol/L (22-30); Creatinine 1 0.66 mg/dL (0.52-1.04); Glucose 103 mg/dL (74-106); Potassium 3.3 mmol/L (3.5-5.1); SODIUM 131 mmol/L (137-145)
[2018-09-04 06:28] LABS: Hematocrit 29.2 % (35-47); Hemoglobin 9.4 gm/dl (12.0-16.0); Mean Cell Volume 91.5 fl (78-100); Mean Corpuscular Hgb Concent. 32.2 g/dl (32-36); Mean Platelet Volume 8.3 fl (6-9.5); Platelet Count 397 K/mm3 (150-450); Red Blood Count 3.19 M/mm3 (4.1-5.4); Red Cell Distribution Width 13.5 % (11.5-14.0); White Blood Count 11.8 K/mm3 (4.0-10.5)
[2018-09-04 06:30] LABS: Mean Corpuscular Hemoglobin 29.4 pg (26-32)
[2018-09-04] MEDS: Zofran 4 MG/2 ML VIAL IV PRN (08:08)
[2018-09-04] MEDS: Protonix 40MG Tablet PO SCH (09:54)
[2018-09-04] MEDS: Zithromax 500 MG/ 250 ML NaCl Premix 500 MG/250 ML IVPB IV SCH (09:54)
[2018-09-04] MEDS: Zestril 10 MG PO SCH (09:55)
[2018-09-04] MEDS: Toprol Xl 100 MG PO SCH (09:55)
[2018-09-04] MEDS ORDERED: Sodium Chloride 0.9% 10 ML FLUSH Syringe IV PRN (11:15)
--- NOTE | 2018-09-04 11:32 | PCM.NOTE ---
Date and Time: 09/04/18 1126 Subjective Assessment: Pt is still on O2, still feeling weak. Breathing well. Jelani po. - Review of Systems Constitutional: No Fever Abdominal/Gastrointestinal: No Vomiting Objective Exam General Appearance: no apparent distress, alert Neurologic Exam: oriented x 3, cooperative Skin Exam: warm, dry, other (inferior to eyes bilat is purple/yellow discoloration), No rash Respiratory Exam: lungs clear, diminished breath sounds (in LLL, otherwise nl breath sounds), No crackles/rales, No rhonchi, No wheezing Cardiovascular Exam: regular rate/rhythm, normal heart sounds, No murmur Gastrointestinal/Abdomen Exam: soft, normal bowel sounds, No tenderness, No distention, No mass, No guarding, No rebound Extremity Exam: normal inspection, No pedal edema, No swelling OBJECTIVE DATA Vital Signs: Vital Signs - 24 hr Temp Pulse Resp BP Pulse Ox 09/04/18 10:43 77 140/82 09/04/18 08:00 98.8 F 87 18 168/74 93 L 09/04/18 04:05 98.8 F 56 L 22 146/67 93 L 09/04/18 00:15 98.5 F 88 18 128/60 94 L 09/03/18 20:04 98.2 F 88 16 131/88 94 L 09/03/18 19:29 98 09/03/18 16:24 98.7 F 77 20 127/58 95 Pain Assessment - Last Documented Pain Intensity 0 Pain Scale Used 0-10 Pain Scale Intake and Output: Intake & Output 09/01/18 09/02/18 09/03/18 09/04/18 11:59 11:59 11:59 11:59 Intake Total 1704 3745 2903 1060 Output Total 809 847 1495 1750 Balance 1004 3045 1003 -690 Weight 78.4 kg 78.9 kg 78 kg 80.6 kg Lab Results: Lab Results-Last 24 Hours 09/04/18 09/04/18 Range/Units 05:30 05:30 WBC 11.8 H (4.0-10.5) K/mm3 RBC 3.19 L (4.1-5.4) M/mm3 Hgb 9.4 L (12.0-16.0) gm/dl Hct 29.2 L (35-47) % MCV 91.5 (78-100) fl MCH 29.4 (26-32) pg MCHC 32.2 (32-36) g/dl RDW 13.5 (11.5-14.0) % Plt Count 397 (150-450) K/mm3 MPV 8.3 (6-9.5) fl Sodium 131 L (137-145) mmol/L Potassium 3.3 L (3.5-5.1) mmol/L Chloride 97 L (98-107) mmol/L Carbon Dioxide 26 (22-30) mmol/L Anion Gap 12.4 (5-15) MEQ/L BUN 6 L (7-17) mg/dL Creatinine 0.66 (0.52-1.04) mg/dL Estimated GFR > 60.0 ML/MIN Glucose 103 (74-106) mg/dL Calcium 8.4 (8.4-10.2) mg/dL Assessment/Plan (1) Pneumonia Current Visit: Yes Status: Acute Qualifiers: Pneumonia type: due to unspecified organism Laterality: left Lung location: unspecified part of lung Qualified Code(s): J18.9 - Pneumonia, unspecified organism Assessment & Plan: On IV zosyn day #4. Doing well overall. She will likely need another 2d in order to recover enough to go home. She does have a friend coming in to stay on 09/06 (otherwise pt lives alone). Code(s): J18.9 - PNEUMONIA, UNSPECIFIED ORGANISM (2) Pulmonary embolism Current Visit: Yes Status: Acute Qualifiers: Pulmonary embolism type: unspecified Chronicity: acute Acute cor pulmonale presence: without acute cor pulmonale Qualified Code(s): I26.99 - Other pulmonary embolism without acute cor pulmonale Assessment & Plan: On lovenox 70mg SQ BID - will be discharged to home on eliquis (apparently it is covered by her insurance). Code(s): I26.99 - OTHER PULMONARY EMBOLISM WITHOUT ACUTE COR PULMONALE (3) HTN (hypertension) Current Visit: Yes Status: Chronic Qualifiers: Hypertension type: essential hypertension Qualified Code(s): I10 - Essential (primary) hypertension Assessment & Plan: Recheck on this morning's bp (which was 168/74, automatic) is 140/82 (manual). Her diuretic was discontinued during her stay because of her hypokalemia. Code(s): I10 - ESSENTIAL (PRIMARY) HYPERTENSION (4) Hypokalemia Current Visit: Yes Status: Resolved Assessment & Plan: Increased potassium from 10mEq po BID to 20 mEq po BID. Recheck tomorrow. Code(s): E87.6 - HYPOKALEMIA (5) Status post fall Current Visit: No Status: Acute Code(s): Z91.81 - HISTORY OF FALLING (6) Osteoarthritis Current Visit: No Status: Chronic Qualifiers: Osteoarthritis location: unspecified site Osteoarthritis type: unspecified Qualified Code(s): M19.90 - Unspecified osteoarthritis, unspecified site Code(s): M19.90 - UNSPECIFIED OSTEOARTHRITIS, UNSPECIFIED SITE
[2018-09-04] MEDS ORDERED: Klor Con 10 MEQ PO ONE (11:45)
[2018-09-04] MEDS: SYNTHROID 50 MCG PO SCH (11:53)
[2018-09-04] MEDS: Klor Con 10 MEQ PO SCH ×2 (12:00→21:33)
[2018-09-04] MEDS: Sodium Chloride 0.9% 10 ML FLUSH Syringe IV SCH ×2 (14:34→21:33)
[2018-09-04] MEDS: ZOCOR 20MG PO SCH (21:33)
[2018-09-05] MEDS: Zosyn 3.375GM/100 Ml D5W 3.375 GM/100 ML IVPB IV SCH ×5 (00:30→23:18)
[2018-09-05 05:23] LABS: Hematocrit 30.2 % (35-47); Hemoglobin 9.9 gm/dl (12.0-16.0); Mean Cell Volume 91.8 fl (78-100); Mean Corpuscular Hgb Concent. 32.8 g/dl (32-36); Mean Platelet Volume 8.3 fl (6-9.5); Platelet Count 448 K/mm3 (150-450); Red Blood Count 3.29 M/mm3 (4.1-5.4); Red Cell Distribution Width 13.5 % (11.5-14.0); White Blood Count 10.5 K/mm3 (4.0-10.5)
[2018-09-05] MEDS: Sodium Chloride 0.9% 10 ML FLUSH Syringe IV SCH ×3 (05:46→21:53)
[2018-09-05] MEDS: ENOXAPARIN SODIUM SQ SCH ×2 (05:46→17:46)
[2018-09-05 06:31] LABS: BLOOD UREA NITROGEN 4 mg/dL (7-17); CHLORIDE 98 mmol/L (98-107); Calcium 8.6 mg/dL (8.4-10.2); Carbon Dioxide 28 mmol/L (22-30); Creatinine 1 0.69 mg/dL (0.52-1.04); Glucose 107 mg/dL (74-106); MAGNESIUM 1.7 mg/dL (1.6-2.3); Potassium 3.4 mmol/L (3.5-5.1); SODIUM 133 mmol/L (137-145)
[2018-09-05 07:27] LABS: ANION GAP 10.4 MEQ/L (5-15)
[2018-09-05] MEDS: Zithromax 500 MG/ 250 ML NaCl Premix 500 MG/250 ML IVPB IV SCH (09:27)
[2018-09-05] MEDS: Klor Con 10 MEQ PO SCH ×2 (09:28→21:53)
[2018-09-05] MEDS: Toprol Xl 100 MG PO SCH (09:28)
[2018-09-05] MEDS: Zestril 10 MG PO SCH (09:28)
[2018-09-05] MEDS: Protonix 40MG Tablet PO SCH (09:28)
[2018-09-05] MEDS: SYNTHROID 50 MCG PO SCH (09:28)
[2018-09-05] MEDS: ZOCOR 20MG PO SCH (21:53)
[2018-09-06] MEDS: ENOXAPARIN SODIUM SQ SCH (05:33)
[2018-09-06] MEDS: Zosyn 3.375GM/100 Ml D5W 3.375 GM/100 ML IVPB IV SCH ×2 (05:33→11:55)
[2018-09-06] MEDS: Sodium Chloride 0.9% 10 ML FLUSH Syringe IV SCH ×2 (05:34→13:57)
[2018-09-06] MEDS: Zithromax 500 MG/ 250 ML NaCl Premix 500 MG/250 ML IVPB IV SCH (10:11)
[2018-09-06] MEDS: Protonix 40MG Tablet PO SCH (10:11)
[2018-09-06] MEDS: Zestril 10 MG PO SCH (10:11)
[2018-09-06] MEDS: Toprol Xl 100 MG PO SCH (10:12)
[2018-09-06] MEDS: Klor Con 10 MEQ PO SCH (10:12)
[2018-09-06] MEDS: SYNTHROID 50 MCG PO SCH (10:12)
--- NOTE | 2018-09-06 10:28 | PCM.DS ---
Discharge Summary Date of Admission: 08/31/18 17:48 Admitting Physician: ARTURO SOLER Primary Care Provider: ARTURO SOLER Allergies Allergies cephalexin [From Keflex] Allergy (Verified 08/31/18 14:22) ciprofloxacin Allergy (Verified 08/31/18 14:22) Hospital Summary - Hospital Course Hospital Course: patient was admitted after found to have PE and infiltrate in left lung. PE were nonoccluding and bilateral, occurred after a fall with multiple contusions etc which seemed to be inciting event. she has had borderline oxygenation during stay, qualifies for home oxygen based on overnight pulse-ox but will likely not need it permanently - Vitals & Intake/Output Vital Signs: Vital Signs Temperature 97.6 F 09/06/18 08:00 Pulse Rate 88 09/06/18 08:48 Respiratory Rate 16 09/06/18 08:48 Blood Pressure 153/69 09/06/18 08:00 O2 Sat by Pulse Oximetry 96 09/06/18 08:48 Oxygen-Last Documented O2 Percentage 3 Liters = 32% Intake & Output: Intake & Output 09/03/18 09/04/18 09/05/18 09/06/18 11:59 11:59 11:59 11:59 Intake Total 2903 1060 1753 2056 Output Total 1900 1750 600 Balance 1003 -690 1753 1456 Weight 78 kg 80.6 kg 80.3 kg 80.1 kg - Lab Result Diagrams: 09/05/18 05:10 09/05/18 05:10 - Procedures and Test Procedures and Tests throughout Hospitalization: Therapy Orders & Screens 08/31/18 17:54 Respiratory Therapy Consult ROUTINE Comment: Reason For Exam: 09/01/18 07:19 Oxygen NASAL CANNULA 2 lpm Comment: Diagnosis: shortness of breath 09/01/18 08:38 Incentive Spirometry TID Comment: Diagnosis: shortness of breath 09/01/18 09:52 Respiratory Therapy Assessment DAILY Comment: Diagnosis: shortness of breath 09/04/18 19:46 Respiratory Therapy Assessment DAILY Comment: Diagnosis: shortness of breath Discharge Exam General Appearance: no apparent distress, alert Neurologic Exam: alert, oriented x 3, cooperative, normal mood/affect, nml cerebellar function, sensation nml, No motor deficits Respiratory Exam: normal breath sounds, lungs clear, No respiratory distress Cardiovascular Exam: regular rate/rhythm, normal heart sounds Gastrointestinal/Abdomen Exam: soft, No tenderness, No mass Extremity Exam: normal inspection, normal range of motion Final Diagnosis/Problem List - Final Discharge Diagnosis/Problem (1) Pulmonary embolism Current Visit: Yes Status: Acute Assessment & Plan: home on eliquis and will need home oxygen (2) Pneumonia Current Visit: Yes Status: Acute Assessment & Plan: has been treated with IV abx since 09/01, appears to be adequately treated at this time. no further abx required on discharge. (3) Nocturnal hypoxia Current Visit: Yes Status: Acute Assessment & Plan: qualified, report on chart, will need home oxygen arranged on discharge. (4) Fall Current Visit: No Status: Resolved - Discharge Disposition: Home, Self-Care Condition: Good Prescriptions: New Apixaban [Eliquis] 5 mg PO BID #60 tablet Lisinopril 20 mg [Zestril 20 MG] 20 mg PO DAILY #30 tablet Continue Rosuvastatin Calcium [Crestor] 10 mg PO DAILY Potassium Chloride [Klor-Con 10] 10 meq PO BID Metoprolol Succinate [Toprol Xl] 100 mg PO DAILY Levothyroxine Sodium 50 mcg PO QAM Esomeprazole Magnesium [Nexium] 40 mg PO DAILY Discontinued Hydrochlorothiazide 12.5 mg PO DAILY Celecoxib [Celebrex] 200 mg PO DAILY Lisinopril [Prinivil] 10 mg PO DAILY Additional Instructions: stop taking celebrex, hydrochlorothiazide and current dose of lisinopril. start eliquis 5mg bid and start lisinopril 20mg daily as directed. return to Dr Soler as scheduled, call for any problems/concerns such as bleeding or return to the ER. Follow up with: ARTURO SOLER MD [Primary Care Provider] - 09/13/18 11:00 am
[2018-09-06 12:26] VITALS: O2SAT 93
[2018-09-06 16:46] VITALS: BP 169/85; PULSE 91
== END 2018-09-06 16:50 | disposition home or self-care (01) | DRG 175 ==
LOC: ED 13:55 → MED SURG 17:48
PROVIDERS: ADMIT Family Medicine; ATTEND Family Medicine
DX: I26.99 Other pulmonary embolism without acute cor pulmonale (principal); J18.9 Pneumonia, unspecified organism; E87.1 Hypo-osmolality and hyponatremia; G47.34 Idiopathic sleep related nonobstructive alveolar hypoventilation; W19.XXXA Unspecified fall, initial encounter; I10 Essential (primary) hypertension; E03.9 Hypothyroidism, unspecified; M19.90 Unspecified osteoarthritis, unspecified site; K44.9 Diaphragmatic hernia without obstruction or gangrene; E87.6 Hypokalemia; N28.89 Other specified disorders of kidney and ureter; R06.02 Shortness of breath; Z85.038 Personal history of other malignant neoplasm of large intestine; Z79.899 Other long term (current) drug therapy; R58 Hemorrhage, not elsewhere classified; R07.81 Pleurodynia
CPT/HCPCS: 36000; 36415; 71046; 71100; 71260; 80048; 80053; 83735; 83880; 84132; 84484; 85025; 85027; 85379; 85610; 85730; 93005; 94010; 94760; 94762; 96372; 99285; J0456; J1650; J2270; J2405; J2543; J3480; A9270-GY

== ENCOUNTER 2020-08-29 03:52 | Emergency (ER) | payer MEDICARE ==
[2020-08-29] MEDS ORDERED: BABY ASPIRIN 81 MG CHEW PO ONE (04:03)
[2020-08-29] MEDS ORDERED: Heparin 5000 UNITS/0.5 ML (HIGH RISK MED) IV ONE (04:06)
[2020-08-29] MEDS ORDERED: Heparin 5000 UNITS/0.5 ML (HIGH RISK MED) ONE (04:10)
[2020-08-29 04:16] LABS: Absolute Neutrophil Ct (ANC) 6.89 (1.4-6.9); BASOPHIL % 0.3 % (0.0-0.4); Basophil (Absolute #) 0.04 (0-0.4); Eosinophil (Absolute #) 0.35 (0-0.5); Hematocrit 38.7 % (35-47); Hemoglobin 11.8 gm/dl (12.0-16.0); Lymphocyte (Absolute #) 3.24 (1.0-4.6); Lymphocytes % 28.2 % (24.0-44.0); Mean Cell Volume 92.6 fl (78-100); Mean Corpuscular Hemoglobin 28.2 pg (26-32); Mean Corpuscular Hgb Concent. 30.5 g/dl (32-36); Mean Platelet Volume 8.9 fl (7.5-11.0); Monocyte (Absolute #) 0.97 (0.0-1.3); Monocytes % 8.4 % (0.0-12.0); Neutrophil % 60.1 % (36.0-66.0); Platelet Count 370 K/mm3 (150-450); Red Blood Count 4.18 M/mm3 (4.1-5.4); Red Cell Distribution Width 14.6 % (11.5-14.0); White Blood Count 11.5 K/mm3 (4.0-10.5)
--- NOTE | 2020-08-29 04:17 | ERPHSYRPT ---
- History of Present Illness Time Seen by Provider: 08/29/20 04:00 Source: patient Exam Limitations: no limitations Patient Subjective Stated Complaint: pt states she began having chest pain approx 2 hours ago, states she was at rest when it began and thought it was indigestion. did not improve with tums Triage Nursing Assessment: pt alert and oriented, answers questions approp. pt back per wheelchair and transfers to stretcher with minimal assist. respirations nonlabored with lungs cta. heart rate 78 on monitor with sinus rhythm noted. skin pink warm and dry. Physician History: Patient is here for chest pain and STEMI. Patient states that she was awake at home. States that she started getting some chest pain. States that she came into the emergency department by private vehicle. States that she has never had a heart attack cramping like that before. She has no falls or trauma. No Covid symptoms. 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 Timing: suddenly Modifying factors/associated signs and symptoms: none tried Allergies/Adverse Reactions: cephalexin [From Keflex] Allergy (Verified 08/31/18 14:22) ciprofloxacin Allergy (Verified 08/31/18 14:22) Home Medications: Esomeprazole Magnesium [Nexium] 40 mg PO DAILY 01/14/17 [History] Levothyroxine Sodium 50 mcg PO QAM 01/14/17 [History] Metoprolol Succinate [Toprol Xl] 100 mg PO DAILY 01/14/17 [History] Potassium Chloride [Klor-Con 10] 10 meq PO BID 01/14/17 [History] Rosuvastatin Calcium [Crestor] 10 mg PO DAILY 01/14/17 [History] Hx Tetanus, Diphtheria Vaccination/Date Given: No Hx Influenza Vaccination/Date Given: Yes Hx Pneumococcal Vaccination/Date Given: Yes Immunizations Up to Date: No Travel Risk - International Travel Have you traveled outside of the country in past 3 weeks: No - Coronavirus Screening Are you exhibiting any of the following symptoms?: No Close contact with a COVID-19 positive Pt in past 14-21 Days: No - Review of Systems Constitutional: No Fever, No Chills Eyes: No Symptoms Ears, Nose, & Throat: No Symptoms Respiratory: No Cough, No Dyspnea Cardiac: Chest Pain, No Edema, No Syncope Abdominal/Gastrointestinal: No Abdominal Pain, No Nausea, No Vomiting, No Diarrhea Genitourinary Symptoms: No Dysuria Musculoskeletal: No Back Pain, No Neck Pain Skin: No Rash Neurological: No Dizziness, No Focal Weakness, No Sensory Changes Psychological: No Symptoms Endocrine: No Symptoms All Other Systems: Reviewed and Negative - Past Medical History Pertinent Past Medical History: Yes Neurological History: No Pertinent History ENT History: No Pertinent History Cardiac History: Hypertension Respiratory History: Asthma, Pulmonary Embolism, Sleep Apnea Endocrine Medical History: Hypothyroidism Musculoskeletal History: Osteoarthritis GI Medical History: Other History: Other Psycho-Social History: No Pertinent History Female Reproductive Disorders: Other Other Medical History: R TKA - Past Surgical History Past Surgical History: Yes Neuro Surgical History: No Pertinent History Cardiac: No Pertinent History Respiratory: No Pertinent History Gastrointestinal: No Pertinent History Genitourinary: No Pertinent History Musculoskeletal: Joint Replacement Female Surgical History: No Pertinent History Other Surgical History: total right knee replacement, 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 - Social History Smoking Status: Never smoker Exposure to second hand smoke: No Drug Use: none Patient Lives Alone: No - Nursing Vital Signs Nursing Vital Signs: Initial Vital Signs Temperature 97.8 F 08/29/20 03:59 Pulse Rate 79 08/29/20 03:59 Respiratory Rate 16 08/29/20 03:59 Blood Pressure 186/109 08/29/20 03:59 O2 Sat by Pulse Oximetry 98 08/29/20 03:59 Pain Scale Pain Intensity 5 - Physical Exam General Appearance: mild distress, alert, other (Patient appears uncomfortable) Eye Exam: PERRL/EOMI, eyes nml inspection Ears, Nose, Throat Exam: normal ENT inspection, TMs normal, pharynx normal, moist mucous membranes Neck Exam: normal inspection, non-tender, supple, full range of motion Respiratory Exam: normal breath sounds, lungs clear, No respiratory distress Cardiovascular Exam: regular rate/rhythm, normal heart sounds, normal peripheral pulses Gastrointestinal/Abdomen Exam: soft, normal bowel sounds, No tenderness, No mass Back Exam: normal inspection, normal range of motion, No CVA tenderness, No vertebral tenderness Extremity Exam: normal inspection, normal range of motion, pelvis stable Neurologic Exam: alert, oriented x 3, cooperative, normal mood/affect, nml cerebellar function, nml station & gait, sensation nml, No motor deficits Skin Exam: normal color, warm, dry, No rash Lymphatic Exam: No adenopathy SpO2: 98 - Course Nursing assessment & vital signs reviewed: Yes EKG Interpreted by Me: Ischemic ST-T changes (STEMI) Ordered Tests: Active Orders 24 hr Category Date Time Status EKG-ER Only STAT Care 08/29/20 04:03 Active IV Insertion STAT Care 08/29/20 04:03 Active CBC W DIFF Stat Lab 08/29/20 04:13 Completed CMP Stat Lab 08/29/20 04:13 Received TROPONIN Q3H Lab 08/29/20 04:13 Received TROPONIN Q3H Lab 08/29/20 07:15 Ordered TROPONIN Q3H Lab 08/29/20 10:15 Ordered TROPONIN Q3H Lab 08/29/20 13:15 Ordered TROPONIN Q3H Lab 08/29/20 16:15 Ordered Medication Summary Discontinued Medications Generic Name Dose Route Start Last Admin Trade Name Freq PRN Reason Stop Dose Admin Aspirin 324 mg 08/29/20 04:03 08/29/20 04:09 Baby Aspirin 81 Mg Chew PO 08/29/20 04:04 324 mg STAT ONE Administration Heparin Sodium (Beef Lung) 4,000 unit 08/29/20 04:06 08/29/20 04:10 Heparin 5000 Units/0.5 Ml (High Risk Med) IV 08/29/20 04:07 4,000 unit STAT ONE Administration Heparin Sodium (Beef Lung) Confirm 08/29/20 04:10 Heparin 5000 Units/0.5 Ml (High Risk Med) Administered 08/29/20 04:11 Dose 5,000 unit .ROUTE .STK-MED ONE Lab/Rad Data: Laboratory Result Diagrams 08/29/20 04:13 Laboratory Results 08/29/20 Range/Units 04:13 WBC 11.5 H (4.0-10.5) K/mm3 RBC 4.18 (4.1-5.4) M/mm3 Hgb 11.8 L (12.0-16.0) gm/dl Hct 38.7 (35-47) % MCV 92.6 (78-100) fl MCH 28.2 (26-32) pg MCHC 30.5 L (32-36) g/dl RDW 14.6 H (11.5-14.0) % Plt Count 370 (150-450) K/mm3 MPV 8.9 (7.5-11.0) fl Gran % 60.1 (36.0-66.0) % Eos # (Auto) 0.35 (0-0.5) Absolute Lymphs (auto) 3.24 (1.0-4.6) Absolute Monos (auto) 0.97 (0.0-1.3) Lymphocytes % 28.2 (24.0-44.0) % Monocytes % 8.4 (0.0-12.0) % Eosinophils % 3.0 (0.00-5.0) % Basophils % 0.3 (0.0-0.4) % Absolute Granulocytes 6.89 (1.4-6.9) Basophils # 0.04 (0-0.4) - Progress Progress: improved Progress Note: 08/29/20 04:14 EKG demonstrates a STEMI. Elevation in lateral leads. Less suspicion for aortic dissection or PE causing these ischemic changes. Therefore will start heparin, give aspirin here. Patient will be transferred immediately to [facility]. I did speak with on-call ER physician, Dr. Sheldon. He accepted the patient. Patient remained stable in ER before transfer. ED critical care statement As staff physician, I have provided critical care. Time: 35 mins Criteria for critical illness: STEMI Treatment and management provided include: Coordination of management with ETC care team, consultants, and inpatient care team. [id number] assessment of condition and response to therapy. Review and interpretation of emergent diagnostic testing. Medical chart review and completion. Direction and immediate supervision of the following therapy: Critical care was time spent personally by me on the following activities: blood draw for specimens, development of treatment plan with patient or surrogate, discussions with consultants, discussions with primary provider, interpretation of cardiac output measurements, evaluation of patient's response to treatment, examination of patient, obtaining history from patient or surrogate, ordering and performing treatments and interventions, ordering and review of laboratory studies, ordering and review of radiographic studies, pulse oximetry, re-evaluation of patient's condition and review of old charts. This time was independent of all procedures performed. Jass Mascorro 08/29/20 04:18 Counseled pt/family regarding: lab results, diagnosis, need for follow-up - Departure Departure Disposition: Transfer Clinical Impression: STEMI (ST elevation myocardial infarction) Condition: Stable Critical Care Time: Yes Critical Care Time(excluding separately billable procedures): Critical 30-74 mins Referrals: ARTURO SOLER MD [Primary Care Provider] - Instructions: Angina (DC)
[2020-08-29 04:24] VITALS: BP 161/101; O2SAT 97
[2020-08-29 04:28] LABS: ANION GAP 11.9 MEQ/L (5-15); BILIRUBIN,TOTAL 0.5 mg/dL (0.2-1.3); Calcium 9.9 mg/dL (8.4-10.2); Creatinine 1 0.95 mg/dL (0.52-1.04); EST GLOMERULAR FILTRATION RATE 59.9 ML/MIN; Total Protein 7.5 g/dL (6.3-8.2)
[2020-08-29 04:32] VITALS: PULSE 74
== END 2020-08-29 04:24 | disposition short-term general hospital (02) ==
LOC: ED 03:52
DX: I21.3 ST elevation (STEMI) myocardial infarction of unspecified site (principal)
CPT/HCPCS: 36000; 36415; 80053; 84484; 85025; 93005; 96374; 99285; 99291; J1644; A9270-GY

== ENCOUNTER 2021-01-01 12:55 | Observation (INO) | payer MEDICARE ==
--- NOTE | 2021-01-01 13:12 | ERPHSYRPT ---
- History of Present Illness Time Seen by Provider: 01/01/21 13:35 Source: patient, family Exam Limitations: no limitations Physician History: This is an 85-year-old white female patient of Dr. Soler who presents with a 2- week history of worsening generalized weakness. She also has had decreasing oral intake. 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 Patient has a history of gastroesophageal reflux disease, hypertension, hypothyroidism, coronary artery disease, asthma and sleep apnea. Patient lives alone. Patient denies chest pain. She does feel weak and has mild shortness of breath with walking. She also feels as though her ability to walk is decreasing because of her weakness. She had no fevers. She has had no nausea vomiting or diarrhea. Because of the above symptoms and the fact that they are getting any better over the last 2 weeks, patient is here for evaluation and management. Timing/Duration: week(s) (2), gradual onset, worse Severity: moderate Character of Deficits: new weakness (Generalized) Deficits: decrease ability to stand, decrease ability to walk Baseline/Normal Cognition: alert oriented x 3 Current Cognition: alert oriented x 3 Baseline Gait: walks w/o assistance Associated Symptoms: weakness, trouble walking, No confusion, No nausea, No vomiting, No seizures, No vision changes, No headache Allergies/Adverse Reactions: cephalexin [From Keflex] Allergy (Verified 01/01/21 13:20) ciprofloxacin Allergy (Verified 01/01/21 13:20) Home Medications: Esomeprazole Magnesium [Nexium] 40 mg PO DAILY 01/14/17 [History] Levothyroxine Sodium 50 mcg PO QAM 01/14/17 [History] Metoprolol Succinate [Toprol Xl] 100 mg PO DAILY 01/14/17 [History] Potassium Chloride [Klor-Con 10] 10 meq PO BID 01/14/17 [History] Rosuvastatin Calcium [Crestor] 10 mg PO DAILY 01/14/17 [History] Celecoxib [Celebrex] 200 mg PO DAILY 08/29/20 [History] Hydrochlorothiazide 25 mg [hydroDIURIL 25 MG] 25 mg PO DAILY 08/29/20 [History] Lisinopril 20 mg [Zestril 20 MG] 10 mg PO DAILY 08/29/20 [History] Albuterol Sulfate Mdi [Proair Hfa MDI] 1 karime IH QID 01/01/21 [History] Hx Tetanus, Diphtheria Vaccination/Date Given: No Hx Influenza Vaccination/Date Given: Yes Hx Pneumococcal Vaccination/Date Given: Yes Travel Risk - International Travel Have you traveled outside of the country in past 3 weeks: No - Coronavirus Screening Are you exhibiting any of the following symptoms?: No Close contact with a COVID-19 positive Pt in past 14-21 Days: No - Vaccine Status Have you recieved a Covid-19 vaccination: No - Review of Systems Constitutional: Weakness, No Fever Eyes: No Symptoms Ears, Nose, & Throat: No Symptoms Respiratory: No Symptoms Cardiac: No Symptoms Abdominal/Gastrointestinal: No Symptoms Genitourinary Symptoms: No Symptoms Musculoskeletal: No Symptoms Skin: No Symptoms Neurological: No Symptoms Psychological: No Symptoms Endocrine: No Symptoms Hematologic/Lymphatic: No Symptoms Immunological/Allergic: No Symptoms All Other Systems: Reviewed and Negative - Past Medical History Pertinent Past Medical History: Yes Neurological History: No Pertinent History ENT History: No Pertinent History Cardiac History: Hypertension Respiratory History: Asthma, Pulmonary Embolism, Sleep Apnea Endocrine Medical History: Hypothyroidism Musculoskeletal History: Osteoarthritis GI Medical History: Other History: Other Psycho-Social History: No Pertinent History Female Reproductive Disorders: Other Other Medical History: R TKA - Past Surgical History Past Surgical History: Yes Neuro Surgical History: No Pertinent History Cardiac: No Pertinent History Respiratory: No Pertinent History Gastrointestinal: No Pertinent History Genitourinary: No Pertinent History Musculoskeletal: Joint Replacement Female Surgical History: No Pertinent History Other Surgical History: total right knee replacement, 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 - Social History Smoking Status: Never smoker Exposure to second hand smoke: No Drug Use: none Patient Lives Alone: No - Nursing Vital Signs Nursing Vital Signs: Initial Vital Signs Pulse Rate 83 01/01/21 13:13 Respiratory Rate 14 01/01/21 13:13 Blood Pressure 133/79 01/01/21 13:13 O2 Sat by Pulse Oximetry 98 01/01/21 13:13 Pain Scale Pain Intensity 0 - Carlos Coma Scale Best Eye Response (Carlos): (4) open spontaneously Best Verbal Response ([place]): (5) oriented Best Motor Response (Carlos): (6) obeys commands Carlos Total: 15 - Physical Exam General Appearance: no apparent distress, alert, anxiety Eye Exam: bilateral eye: normal inspection, PERRL, EOMI Ears, Nose, Throat Exam: normal ENT inspection, moist mucous membranes Neck Exam: normal inspection, non-tender, supple, full range of motion Respiratory: normal breath sounds, lungs clear, airway intact, No chest tenderness, No respiratory distress Cardiovascular: regular rate/rhythm, normal heart sounds, normal peripheral pulses Gastrointestinal: soft, normal bowel sounds, No tenderness Pelvic Exam: not done Rectal Exam: not done Back Exam: normal inspection, normal range of motion, No CVA tenderness, No vertebral tenderness Extremity Exam: normal inspection, normal range of motion, pelvis stable Mental Status: alert, oriented x 3, cooperative log feeder Exam: normal hearing, normal speech, PERRL Coordination/Gait: normal finger to nose, normal gait, normal cerebellar function Motor/Sensory: no motor deficit, no sensory deficit, no pronator drift Skin Exam: normal color, warm, dry SpO2 Interpretation: normal O2 Delivery: Room Air - Course Nursing assessment & vital signs reviewed: Yes EKG Interpreted by Me: RATE (84), Sinus Rhythm, NORMAL AXIS, NORMAL INTERVALS, NORMAL QRS, Other (No acute ischemic changes on today's EKG. When compared to EKG dated 01/01/2021, there is now no evidence of any acute ischemic event) Ordered Tests: Active Orders 24 hr Category Date Time Status Drafter Seismograph STAT Care 01/01/21 13:21 Active EKG-ER Only STAT Care 01/01/21 13:20 Active IV Insertion STAT Care 01/01/21 13:20 Active Pulse Oximetry (ED) STAT Care 01/01/21 13:20 Active cath [Cath for Specimen-Straight] STAT Care 01/01/21 13:30 Active CBC W DIFF Stat Lab 01/01/21 13:25 Completed CMP Stat Lab 01/01/21 13:25 Completed CULTURE,URINE Stat Lab 01/01/21 13:28 Received NT PRO BNP Stat Lab 01/01/21 13:25 Completed PROTIME WITH INR Stat Lab 01/01/21 13:25 Completed T4 (Thyroxine) Stat Lab 01/01/21 13:25 Completed TROPONIN Q3H Lab 01/01/21 13:25 Completed TROPONIN Q3H Lab 01/01/21 16:30 Ordered TROPONIN Q3H Lab 01/01/21 19:30 Ordered TROPONIN Q3H Lab 01/01/21 22:30 Ordered TROPONIN Q3H Lab 01/02/21 01:30 Ordered TSH [TSH, 3RD Generation] Stat Lab 01/01/21 13:25 Completed UA W/RFX UR CULTURE Stat Lab 01/01/21 13:28 Completed Transfer Order Routine Transfer 01/01/21 Ordered Medication Summary Generic Name Dose Route Start Last Admin Trade Name Freq PRN Reason Stop Dose Admin Sodium Chloride 1,000 mls @ 100 mls/hr 01/01/21 13:45 01/01/21 13:35 Sodium Chloride 0.9% 1000 Ml IV 01/31/21 13:44 100 mls/hr .Q10H PATRICK Administration Discontinued Medications Generic Name Dose Route Start Last Admin Trade Name Freq PRN Reason Stop Dose Admin Ceftriaxone Sodium/Dextrose 1 g in 50 mls @ 100 mls/hr 01/01/21 14:13 14:17 Rocephin 1 Gm-D5w 50 Ml Bag IV 01/01/21 14:42 100 ml/hr STAT STA 100 mls/hr Administration Ceftriaxone Sodium/Dextrose Confirm 01/01/21 14:15 Rocephin 1 Gm-D5w 50 Ml Bag Administered 01/01/21 14:16 Dose 1 g in 50 mls @ ud IV .STK-MED ONE Lab/Rad Data: Laboratory Result Diagrams 01/01/21 13:25 01/01/21 13:25 Laboratory Results 01/01/21 01/01/21 01/01/21 Range/Units 13:28 13:25 13:25 WBC (4.0-10.5) K/mm3 RBC (4.1-5.4) M/mm3 Hgb (12.0-16.0) gm/dl Hct (35-47) % MCV (78-100) fl MCH (26-32) pg MCHC (32-36) g/dl RDW (11.5-14.0) % Plt Count (150-450) K/mm3 MPV (7.5-11.0) fl Gran % (36.0-66.0) % Eos # (Auto) (0-0.5) Absolute Lymphs (auto) (1.0-4.6) Absolute Monos (auto) (0.0-1.3) Lymphocytes % (24.0-44.0) % Monocytes % (0.0-12.0) % Eosinophils % (0.00-5.0) % Basophils % (0.0-0.4) % Absolute Granulocytes (1.4-6.9) Basophils # (0-0.4) PT 12.9 H (9.95-12.35) SECONDS INR 1.14 (0.8-3.0) Sodium (137-145) mmol/L Potassium (3.5-5.1) mmol/L Chloride (98-107) mmol/L Carbon Dioxide (22-30) mmol/L Anion Gap (5-15) MEQ/L BUN (7-17) mg/dL Creatinine (0.52-1.04) mg/dL Estimated GFR ML/MIN Glucose (74-106) mg/dL Calcium (8.4-10.2) mg/dL Total Bilirubin (0.2-1.3) mg/dL AST (14-36) U/L ALT (0-35) U/L Alkaline Phosphatase (38-126) U/L Troponin I 0.039 H* (0.000-0.034) ng/mL NT-Pro-B Natriuret Pep (0-1800) pg/mL Serum Total Protein (6.3-8.2) g/dL Albumin (3.5-5.0) g/dL Thyroxine (T4) (5.53-10.96) ug/dL TSH 3rd Generation (0.47-4.68) mIU/L Urine Color MATT (YELLOW) Urine Appearance TURBID (CLEAR) Urine pH 5.0 (5-6) Ur Specific Hines 1.017 (1.005-1.025) Urine Protein 100 (Negative) Urine Ketones NEGATIVE (NEGATIVE) Urine Blood MODERATE (0-5) Nino/ul Urine Nitrite NEGATIVE (NEGATIVE) Urine Bilirubin NEGATIVE (NEGATIVE) Urine Urobilinogen 2 (0-1) mg/dL Ur Leukocyte Esterase LARGE (NEGATIVE) Urine WBC (Auto) >100 (0-5) /HPF Urine RBC (Auto) 26-50 (0-2) /HPF U Hyaline Cast (Auto) 6-10 (0-2) /LPF U Epithel Cells (Auto) RARE (FEW) /HPF Urine Bacteria (Auto) MODERATE (NEGATIVE) /HPF Urine Mucus (Auto) SLIGHT (NEGATIVE) /HPF Urine Culture Reflexed YES (NO) Urine Glucose NEGATIVE (NEGATIVE) mg/dL 01/01/21 01/01/21 01/01/21 Range/Units 13:25 13:25 13:25 WBC 12.7 H (4.0-10.5) K/mm3 RBC 4.70 (4.1-5.4) M/mm3 Hgb 13.6 (12.0-16.0) gm/dl Hct 40.9 (35-47) % MCV 87.0 (78-100) fl MCH 28.9 (26-32) pg MCHC 33.3 (32-36) g/dl RDW 15.4 H (11.5-14.0) % Plt Count 375 (150-450) K/mm3 MPV 9.0 (7.5-11.0) fl Gran % 80.2 H (36.0-66.0) % Eos # (Auto) 0.03 (0-0.5) Absolute Lymphs (auto) 1.35 (1.0-4.6) Absolute Monos (auto) 1.10 (0.0-1.3) Lymphocytes % 10.7 L (24.0-44.0) % Monocytes % 8.7 (0.0-12.0) % Eosinophils % 0.2 (0.00-5.0) % Basophils % 0.2 (0.0-0.4) % Absolute Granulocytes 10.16 H (1.4-6.9) Basophils # 0.02 (0-0.4) PT (9.95-12.35) SECONDS INR (0.8-3.0) Sodium 128 L (137-145) mmol/L Potassium 4.5 (3.5-5.1) mmol/L Chloride 91 L (98-107) mmol/L Carbon Dioxide 27 (22-30) mmol/L Anion Gap 15.2 H (5-15) MEQ/L BUN 47 H (7-17) mg/dL Creatinine 2.46 H (0.52-1.04) mg/dL Estimated GFR 19.9 ML/MIN Glucose 136 H (74-106) mg/dL Calcium 10.2 (8.4-10.2) mg/dL Total Bilirubin 1.10 (0.2-1.3) mg/dL AST 23 (14-36) U/L ALT 14 (0-35) U/L Alkaline Phosphatase 95 (38-126) U/L Troponin I (0.000-0.034) ng/mL NT-Pro-B Natriuret Pep 3110 H (0-1800) pg/mL Serum Total Protein 7.7 (6.3-8.2) g/dL Albumin 4.4 (3.5-5.0) g/dL Thyroxine (T4) 14.4 H (5.53-10.96) ug/dL TSH 3rd Generation 1.960 (0.47-4.68) mIU/L Urine Color (YELLOW) Urine Appearance (CLEAR) Urine pH (5-6) Ur Specific Hines (1.005-1.025) Urine Protein (Negative) Urine Ketones (NEGATIVE) Urine Blood (0-5) Nino/ul Urine Nitrite (NEGATIVE) Urine Bilirubin (NEGATIVE) Urine Urobilinogen (0-1) mg/dL Ur Leukocyte Esterase (NEGATIVE) Urine WBC (Auto) (0-5) /HPF Urine RBC (Auto) (0-2) /HPF U Hyaline Cast (Auto) (0-2) /LPF U Epithel Cells (Auto) (FEW) /HPF Urine Bacteria (Auto) (NEGATIVE) /HPF Urine Mucus (Auto) (NEGATIVE) /HPF Urine Culture Reflexed (NO) Urine Glucose (NEGATIVE) mg/dL - Progress Progress: improved Progress Note: 01/01/21 15:24 Medical decision making: This patient has weakness and a significant urinary tract infection as well as renal insufficiency. I spoke with Dr. Soler who accepts the patient for placement observation bed. I did make him aware about the elevated troponin level. We both feel that this is most likely secondary to the elevated creatinine that is present. The patient has no chest pain. 01/01/21 15:37 The patient has an allergy to Keflex. She said the allergy was immediate rash. She also stated that she thought she had had Rocephin in the past without any problems. We gave a single dose of Rocephin and there is no evidence of any allergic reaction. However in discussing with family, they do not believe she has had Rocephin in the past so I am going to change her admission antibiotic to Zosyn. Patient states she has had penicillin in the past without any problems whatsoever. Discussed with : Anam Counseled pt/family regarding: lab results, diagnosis, need for follow-up, rad results - Departure Departure Disposition: Observation Clinical Impression: Generalized weakness, Urinary tract infection, Renal insufficiency Condition: Stable Critical Care Time: No Referrals: ARTURO SOLER MD [Primary Care Provider] -
[2021-01-01 13:42] LABS: Absolute Neutrophil Ct (ANC) 10.16 (1.4-6.9); BASOPHIL % 0.2 % (0.0-0.4); Basophil (Absolute #) 0.02 (0-0.4); Eosinophil % 0.2 % (0.00-5.0); Eosinophil (Absolute #) 0.03 (0-0.5); Hematocrit 40.9 % (35-47); Hemoglobin 13.6 gm/dl (12.0-16.0); Lymphocyte (Absolute #) 1.35 (1.0-4.6); Lymphocytes % 10.7 % (24.0-44.0); Mean Corpuscular Hemoglobin 28.9 pg (26-32); Mean Corpuscular Hgb Concent. 33.3 g/dl (32-36); Monocytes % 8.7 % (0.0-12.0); Neutrophil % 80.2 % (36.0-66.0); Platelet Count 375 K/mm3 (150-450); Red Cell Distribution Width 15.4 % (11.5-14.0); White Blood Count 12.7 K/mm3 (4.0-10.5)
[2021-01-01] MEDS ORDERED: Sodium Chloride 0.9% 1000 ML 1,000 ML IV SCH (13:45)
[2021-01-01 13:46] LABS: Appearance TURBID (CLEAR); Bacteria MODERATE /HPF (NEGATIVE); Bilirubin NEGATIVE (NEGATIVE); Blood MODERATE Ery/ul (0-5); Epithelial Cells RARE /HPF (FEW); Glucose NEGATIVE (NEGATIVE); Ketones NEGATIVE (NEGATIVE); Leukocyte Esterase LARGE (NEGATIVE); Mucus SLIGHT /HPF (NEGATIVE); Nitrite NEGATIVE (NEGATIVE); Protein,Urine Dip 100 (Negative); RBC 26-50 /HPF (0-2); Specific Gravity 1.017 (1.005-1.025); Urobilinogen 2 mg/dL (0-1); WBC >100 /HPF (0-5)
[2021-01-01 13:49] LABS: INR 1.14 (0.8-3.0); PROTIME 12.9 SECONDS (9.95-12.35)
[2021-01-01] MEDS ORDERED: ROCEPHIN 1 Gm-D5w 50 ml Bag** 1 G/50 ML IVPB IV STA (14:13)
[2021-01-01] MEDS ORDERED: ROCEPHIN 1 Gm-D5w 50 ml Bag** 1 G/50 ML IVPB IV ONE (14:15)
[2021-01-01 14:33] LABS: ALBUMIN 4.4 g/dL (3.5-5.0); ANION GAP 15.2 MEQ/L (5-15); BILIRUBIN,TOTAL 1.1 mg/dL (0.2-1.3); Calcium 10.2 mg/dL (8.4-10.2); Creatinine 1 2.46 mg/dL (0.52-1.04); EST GLOMERULAR FILTRATION RATE 19.9 ML/MIN; Potassium 4.5 mmol/L (3.5-5.1); T4 (Thyroxine) 14.4 ug/dL (5.53-10.96); Total Protein 7.7 g/dL (6.3-8.2)
[2021-01-01 15:53] LABS: INFLUENZA A NEGATIVE (NEGATIVE); INFLUENZA B NEGATIVE (NEGATIVE); RESPIRATORY SYNCTIAL VIRUS NEGATIVE (Negative)
[2021-01-01] MEDS ORDERED: Zofran 4 MG/2 ML VIAL IV PRN (17:27)
[2021-01-01] MEDS ORDERED: Zosyn 2.25 GM IV ONE (18:24)
[2021-01-01] MEDS ORDERED: Sodium Chloride 100ML MINI-BAG PLUS 100 ML IV ONE (18:25)
[2021-01-01] MEDS: Zosyn 2.25 GM 2.25 GM in Sodium Chloride 100ML MINI-BAG PLUS 100 ML IV SCH (18:30)
[2021-01-01] MEDS ORDERED: TYLENOL 325 MG PO PRN (20:20)
[2021-01-01] MEDS: Sodium Chloride 0.9% 1000 ML 1,000 ML IV SCH (21:52)
[2021-01-01] MEDS: Klor Con 10 MEQ PO SCH (21:52)
[2021-01-02] MEDS: BRILINTA PO SCH ×3 (00:28→21:50)
[2021-01-02] MEDS ORDERED: Zosyn 2.25 GM IV ONE (01:35)
[2021-01-02] MEDS: Zosyn 2.25 GM 2.25 GM in Sodium Chloride 100ML MINI-BAG PLUS 100 ML IV SCH ×4 (01:36→17:15)
[2021-01-02 05:23] LABS: Absolute Neutrophil Ct (ANC) 6.87 (1.4-6.9); BASOPHIL % 0.1 % (0.0-0.4); Basophil (Absolute #) 0.01 (0-0.4); Eosinophil % 1.2 % (0.00-5.0); Eosinophil (Absolute #) 0.12 (0-0.5); Hematocrit 37.1 % (35-47); Hemoglobin 12.1 gm/dl (12.0-16.0); Lymphocyte (Absolute #) 2.12 (1.0-4.6); Lymphocytes % 20.6 % (24.0-44.0); Mean Cell Volume 87.9 fl (78-100); Mean Corpuscular Hemoglobin 28.7 pg (26-32); Mean Corpuscular Hgb Concent. 32.6 g/dl (32-36); Mean Platelet Volume 8.9 fl (7.5-11.0); Monocyte (Absolute #) 1.19 (0.0-1.3); Monocytes % 11.5 % (0.0-12.0); Neutrophil % 66.6 % (36.0-66.0); Platelet Count 308 K/mm3 (150-450); Red Blood Count 4.22 M/mm3 (4.1-5.4); Red Cell Distribution Width 15.5 % (11.5-14.0); White Blood Count 10.3 K/mm3 (4.0-10.5)
[2021-01-02 05:48] LABS: ANION GAP 11.7 MEQ/L (5-15); Calcium 9.3 mg/dL (8.4-10.2); Creatinine 1 1.78 mg/dL (0.52-1.04); EST GLOMERULAR FILTRATION RATE 28.9 ML/MIN; Potassium 4.1 mmol/L (3.5-5.1)
[2021-01-02] MEDS ORDERED: VENTOLIN COMMON CANISTER IH SCH (07:00)
--- NOTE | 2021-01-02 08:24 | PCM.HP ---
History of Present Illness - Chief Complaint Chief Complaint: UTI History of Present Illness: is a 85 year old female who presented to the ER yesterday, she reports she has felt weak and fallen twice in the last several days, she is short of breath and weak when she tries to exert herself, no chest pain, no cough, no shortness of breath at rest. no vomiting, tolerating po. - Review of Systems Constitutional: No Fever, No Chills Respiratory: Short Of Breath Cardiac: No Chest Pain, No Palpitations, No Syncope Abdominal/Gastrointestinal: No Abdominal Pain, No Nausea, No Vomiting, No Diarrhea Genitourinary Symptoms: No Dysuria Skin: No Rash All Other Systems: Reviewed and Negative Medications & Allergies Home Medications: Home Medication List Esomeprazole Magnesium [Nexium] 40 mg PO DAILY 01/14/17 [History Confirmed 01/01/21] Levothyroxine Sodium 50 mcg PO QAM 01/14/17 [History Confirmed 01/01/21] Metoprolol Succinate [Toprol Xl] 100 mg PO DAILY 01/14/17 [History Confirmed 01/01/21] Potassium Chloride [Klor-Con 10] 10 meq PO BID 01/14/17 [History Confirmed 01/01/21] Rosuvastatin Calcium [Crestor] 10 mg PO DAILY 01/14/17 [History Confirmed 01/01/21] Celecoxib [Celebrex] 200 mg PO DAILY 08/29/20 [History Confirmed 01/01/21] Hydrochlorothiazide 25 mg [hydroDIURIL 25 MG] 25 mg PO DAILY 08/29/20 [History Confirmed 01/01/21] Albuterol Sulfate Mdi [Proair Hfa MDI] 1 puff IH QID 01/01/21 [History Confirmed 01/01/21] Ezetimibe 10 mg [Zetia 10 MG] 10 mg PO DAILY 01/01/21 [History Confirmed 01/01/21] Losartan Potassium 50 mg [Cozaar 50 MG] 50 mg PO DAILY 01/01/21 [History Confirmed 01/01/21] Spironolactone 25 mg [Aldactone 25 MG] 25 mg PO DAILY 01/01/21 [History Confirmed 01/01/21] Ticagrelor [Brilinta] 90 mg PO BID 01/01/21 [History Confirmed 01/01/21] Allergies/Adverse Reactions: Allergies Allergy/AdvReac Type Severity Reaction Status Date / Time cephalexin [From Keflex] Allergy Verified 01/01/21 13:20 ciprofloxacin Allergy Verified 01/01/21 13:20 - Past Medical History Past Medical History: Yes Neurological History: No Pertinent History ENT History: No Pertinent History Cardiac History: Deep Vein Thrombosis, Hypertension, Myocardial Infarction ([place]) Respiratory History: Asthma, Pulmonary Embolism, Sleep Apnea Endocrine Medical History: Hypothyroidism Musculoskelatal History: Osteoarthritis GI Medical History: Other History: Other Pyscho-Social History: No Pertinent History Reproductive Disorders: Other Comment: R TKA - Female History Are you now?: No - Past Surgical History Past Surgical History: Yes Neuro Surgical History: No Pertinent History Cardiac History: No Pertinent History, Cardiac Catheterization, Cardiac Stent Respiratory Surgery: No Pertinent History GI Surgical History: No Pertinent History Genitourinary Surgical Hx: No Pertinent History Musculskeletal Surgical Hx: Joint Replacement Female Surgical History: No Pertinent History Other Surgical History: total right knee replacement, 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 - Social History Smoking Status: Never smoker Exposure to second hand smoke: No Alcohol: None Drug Use: none - Physical Exam Vital Signs: Vital Signs - 24 hr Temp Pulse Resp BP Pulse Ox 01/02/21 07:25 95 01/02/21 07:15 97.3 F 66 16 103/50 96 01/02/21 04:00 98.5 F 71 18 97/53 95 01/02/21 00:00 97.4 F 64 15 109/59 98 01/01/21 20:00 97.1 F 64 142/64 01/01/21 19:53 64 18 99 01/01/21 19:49 99 01/01/21 17:34 97.1 F 66 18 142/64 96 01/01/21 17:00 66 16 129/71 95 01/01/21 16:00 68 18 113/64 96 01/01/21 15:08 72 23 124/70 96 01/01/21 14:00 70 20 114/64 97 01/01/21 13:22 97 01/01/21 13:13 83 14 133/79 98 Oxygen-Last 24 hours Oxygen Flowrate (L/min)-RT 2 Oxygen Flowrate (L/min)-RT 2 Oxygen Flowrate (L/min)-RT 2 General Appearance: no apparent distress, alert Neurologic Exam: alert, oriented x 3, cooperative, normal mood/affect, nml cerebellar function, nml station & gait, sensation nml, No motor deficits Respiratory Exam: normal breath sounds, lungs clear, No respiratory distress Cardiovascular Exam: regular rate/rhythm, normal heart sounds, normal peripheral pulses Gastrointestinal/Abdomen Exam: soft, normal bowel sounds, No tenderness, No mass Extremity Exam: normal inspection, normal range of motion, pelvis stable Wound Assessment: Skin/Wound Assessment Wound/Incision Assessment Start: 01/01/21 17:55 Text: Status: Active Freq: Q6H Protocol: Document 01/02/21 02:00 VL (Rec: 01/02/21 02:04 VL [id number]) Wound Photo Photo Taken No Results - Labs Lab/Micro Results: Lab Results-Last 24 Hours 01/01/21 01/01/21 01/01/21 Range/Units 13:25 13:25 13:25 WBC 12.7 H (4.0-10.5) K/mm3 RBC 4.70 (4.1-5.4) M/mm3 Hgb 13.6 (12.0-16.0) gm/dl Hct 40.9 (35-47) % MCV 87.0 (78-100) fl MCH 28.9 (26-32) pg MCHC 33.3 (32-36) g/dl RDW 15.4 H (11.5-14.0) % Plt Count 375 (150-450) K/mm3 MPV 9.0 (7.5-11.0) fl Gran % 80.2 H (36.0-66.0) % Eos # (Auto) 0.03 (0-0.5) Absolute Lymphs (auto) 1.35 (1.0-4.6) Absolute Monos (auto) 1.10 (0.0-1.3) Lymphocytes % 10.7 L (24.0-44.0) % Monocytes % 8.7 (0.0-12.0) % Eosinophils % 0.2 (0.00-5.0) % Basophils % 0.2 (0.0-0.4) % Absolute Granulocytes 10.16 H (1.4-6.9) Basophils # 0.02 (0-0.4) PT (9.95-12.35) SECONDS INR (0.8-3.0) Sodium 128 L (137-145) mmol/L Potassium 4.5 (3.5-5.1) mmol/L Chloride 91 L (98-107) mmol/L Carbon Dioxide 27 (22-30) mmol/L Anion Gap 15.2 H (5-15) MEQ/L BUN 47 H (7-17) mg/dL Creatinine 2.46 H (0.52-1.04) mg/dL Estimated GFR 19.9 ML/MIN Glucose 136 H (74-106) mg/dL Calcium 10.2 (8.4-10.2) mg/dL Total Bilirubin 1.10 (0.2-1.3) mg/dL AST 23 (14-36) U/L ALT 14 (0-35) U/L Alkaline Phosphatase 95 (38-126) U/L Troponin I (0.000-0.034) ng/mL NT-Pro-B Natriuret Pep 3110 H (0-1800) pg/mL Serum Total Protein 7.7 (6.3-8.2) g/dL Albumin 4.4 (3.5-5.0) g/dL Prealbumin (17.6-36.0) mg/dL Thyroxine (T4) 14.4 H (5.53-10.96) ug/dL TSH 3rd Generation 1.960 (0.47-4.68) mIU/L Urine Color (YELLOW) Urine Appearance (CLEAR) Urine pH (5-6) Ur Specific [place] (1.005-1.025) Urine Protein (Negative) Urine Ketones (NEGATIVE) Urine Blood (0-5) Nino/ul Urine Nitrite (NEGATIVE) Urine Bilirubin (NEGATIVE) Urine Urobilinogen (0-1) mg/dL Ur Leukocyte Esterase (NEGATIVE) Urine WBC (Auto) (0-5) /HPF Urine RBC (Auto) (0-2) /HPF U Hyaline Cast (Auto) (0-2) /LPF U Epithel Cells (Auto) (FEW) /HPF Urine Bacteria (Auto) (NEGATIVE) /HPF Urine Mucus (Auto) (NEGATIVE) /HPF Urine Culture Reflexed (NO) Urine Glucose (NEGATIVE) mg/dL Influenza Type A Ag (NEGATIVE) Influenza Type B Ag (NEGATIVE) RSV (PCR) (Negative) SARS-CoV-2 (PCR) (NEGATIVE) 01/01/21 01/01/21 01/01/21 Range/Units 13:25 13:25 13:28 WBC (4.0-10.5) K/mm3 RBC (4.1-5.4) M/mm3 Hgb (12.0-16.0) gm/dl Hct (35-47) % MCV (78-100) fl MCH (26-32) pg MCHC (32-36) g/dl RDW (11.5-14.0) % Plt Count (150-450) K/mm3 MPV (7.5-11.0) fl Gran % (36.0-66.0) % Eos # (Auto) (0-0.5) Absolute Lymphs (auto) (1.0-4.6) Absolute Monos (auto) (0.0-1.3) Lymphocytes % (24.0-44.0) % Monocytes % (0.0-12.0) % Eosinophils % (0.00-5.0) % Basophils % (0.0-0.4) % Absolute Granulocytes (1.4-6.9) Basophils # (0-0.4) PT 12.9 H (9.95-12.35) SECONDS INR 1.14 (0.8-3.0) Sodium (137-145) mmol/L Potassium (3.5-5.1) mmol/L Chloride (98-107) mmol/L Carbon Dioxide (22-30) mmol/L Anion Gap (5-15) MEQ/L BUN (7-17) mg/dL Creatinine (0.52-1.04) mg/dL Estimated GFR ML/MIN Glucose (74-106) mg/dL Calcium (8.4-10.2) mg/dL Total Bilirubin (0.2-1.3) mg/dL AST (14-36) U/L ALT (0-35) U/L Alkaline Phosphatase (38-126) U/L Troponin I 0.039 H* (0.000-0.034) ng/mL NT-Pro-B Natriuret Pep (0-1800) pg/mL Serum Total Protein (6.3-8.2) g/dL Albumin (3.5-5.0) g/dL Prealbumin (17.6-36.0) mg/dL Thyroxine (T4) (5.53-10.96) ug/dL TSH 3rd Generation (0.47-4.68) mIU/L Urine Color MATT (YELLOW) Urine Appearance TURBID (CLEAR) Urine pH 5.0 (5-6) Ur Specific [place] 1.017 (1.005-1.025) Urine Protein 100 (Negative) Urine Ketones NEGATIVE (NEGATIVE) Urine Blood MODERATE (0-5) Nino/ul Urine Nitrite NEGATIVE (NEGATIVE) Urine Bilirubin NEGATIVE (NEGATIVE) Urine Urobilinogen 2 (0-1) mg/dL Ur Leukocyte Esterase LARGE (NEGATIVE) Urine WBC (Auto) >100 (0-5) /HPF Urine RBC (Auto) 26-50 (0-2) /HPF U Hyaline Cast (Auto) 6-10 (0-2) /LPF U Epithel Cells (Auto) RARE (FEW) /HPF Urine Bacteria (Auto) MODERATE (NEGATIVE) /HPF Urine Mucus (Auto) SLIGHT (NEGATIVE) /HPF Urine Culture Reflexed YES (NO) Urine Glucose NEGATIVE (NEGATIVE) mg/dL Influenza Type A Ag (NEGATIVE) Influenza Type B Ag (NEGATIVE) RSV (PCR) (Negative) SARS-CoV-2 (PCR) (NEGATIVE) 01/01/21 01/01/21 01/01/21 Range/Units 14:57 16:40 17:55 WBC (4.0-10.5) K/mm3 RBC (4.1-5.4) M/mm3 Hgb (12.0-16.0) gm/dl Hct (35-47) % MCV (78-100) fl MCH (26-32) pg MCHC (32-36) g/dl RDW (11.5-14.0) % Plt Count (150-450) K/mm3 MPV (7.5-11.0) fl Gran % (36.0-66.0) % Eos # (Auto) (0-0.5) Absolute Lymphs (auto) (1.0-4.6) Absolute Monos (auto) (0.0-1.3) Lymphocytes % (24.0-44.0) % Monocytes % (0.0-12.0) % Eosinophils % (0.00-5.0) % Basophils % (0.0-0.4) % Absolute Granulocytes (1.4-6.9) Basophils # (0-0.4) PT (9.95-12.35) SECONDS INR (0.8-3.0) Sodium (137-145) mmol/L Potassium (3.5-5.1) mmol/L Chloride (98-107) mmol/L Carbon Dioxide (22-30) mmol/L Anion Gap (5-15) MEQ/L BUN (7-17) mg/dL Creatinine (0.52-1.04) mg/dL Estimated GFR ML/MIN Glucose (74-106) mg/dL Calcium (8.4-10.2) mg/dL Total Bilirubin (0.2-1.3) mg/dL AST (14-36) U/L ALT (0-35) U/L Alkaline Phosphatase (38-126) U/L Troponin I 0.044 H* (0.000-0.034) ng/mL NT-Pro-B Natriuret Pep (0-1800) pg/mL Serum Total Protein (6.3-8.2) g/dL Albumin (3.5-5.0) g/dL Prealbumin 19.81 (17.6-36.0) mg/dL Thyroxine (T4) (5.53-10.96) ug/dL TSH 3rd Generation (0.47-4.68) mIU/L Urine Color (YELLOW) Urine Appearance (CLEAR) Urine pH (5-6) Ur Specific [place] (1.005-1.025) Urine Protein (Negative) Urine Ketones (NEGATIVE) Urine Blood (0-5) Nino/ul Urine Nitrite (NEGATIVE) Urine Bilirubin (NEGATIVE) Urine Urobilinogen (0-1) mg/dL Ur Leukocyte Esterase (NEGATIVE) Urine WBC (Auto) (0-5) /HPF Urine RBC (Auto) (0-2) /HPF U Hyaline Cast (Auto) (0-2) /LPF U Epithel Cells (Auto) (FEW) /HPF Urine Bacteria (Auto) (NEGATIVE) /HPF Urine Mucus (Auto) (NEGATIVE) /HPF Urine Culture Reflexed (NO) Urine Glucose (NEGATIVE) mg/dL Influenza Type A Ag NEGATIVE (NEGATIVE) Influenza Type B Ag NEGATIVE (NEGATIVE) RSV (PCR) NEGATIVE (Negative) SARS-CoV-2 (PCR) NEGATIVE (NEGATIVE) 01/01/21 01/01/21 01/02/21 Range/Units 19:35 22:15 01:15 WBC (4.0-10.5) K/mm3 RBC (4.1-5.4) M/mm3 Hgb (12.0-16.0) gm/dl Hct (35-47) % MCV (78-100) fl MCH (26-32) pg MCHC (32-36) g/dl RDW (11.5-14.0) % Plt Count (150-450) K/mm3 MPV (7.5-11.0) fl Gran % (36.0-66.0) % Eos # (Auto) (0-0.5) Absolute Lymphs (auto) (1.0-4.6) Absolute Monos (auto) (0.0-1.3) Lymphocytes % (24.0-44.0) % Monocytes % (0.0-12.0) % Eosinophils % (0.00-5.0) % Basophils % (0.0-0.4) % Absolute Granulocytes (1.4-6.9) Basophils # (0-0.4) PT (9.95-12.35) SECONDS INR (0.8-3.0) Sodium (137-145) mmol/L Potassium (3.5-5.1) mmol/L Chloride (98-107) mmol/L Carbon Dioxide (22-30) mmol/L Anion Gap (5-15) MEQ/L BUN (7-17) mg/dL Creatinine (0.52-1.04) mg/dL Estimated GFR ML/MIN Glucose (74-106) mg/dL Calcium (8.4-10.2) mg/dL Total Bilirubin (0.2-1.3) mg/dL AST (14-36) U/L ALT (0-35) U/L Alkaline Phosphatase (38-126) U/L Troponin I 0.047 H* 0.056 H* 0.053 H* (0.000-0.034) ng/mL NT-Pro-B Natriuret Pep (0-1800) pg/mL Serum Total Protein (6.3-8.2) g/dL Albumin (3.5-5.0) g/dL Prealbumin (17.6-36.0) mg/dL Thyroxine (T4) (5.53-10.96) ug/dL TSH 3rd Generation (0.47-4.68) mIU/L Urine Color (YELLOW) Urine Appearance (CLEAR) Urine pH (5-6) Ur Specific [place] (1.005-1.025) Urine Protein (Negative) Urine Ketones (NEGATIVE) Urine Blood (0-5) Nino/ul Urine Nitrite (NEGATIVE) Urine Bilirubin (NEGATIVE) Urine Urobilinogen (0-1) mg/dL Ur Leukocyte Esterase (NEGATIVE) Urine WBC (Auto) (0-5) /HPF Urine RBC (Auto) (0-2) /HPF U Hyaline Cast (Auto) (0-2) /LPF U Epithel Cells (Auto) (FEW) /HPF Urine Bacteria (Auto) (NEGATIVE) /HPF Urine Mucus (Auto) (NEGATIVE) /HPF Urine Culture Reflexed (NO) Urine Glucose (NEGATIVE) mg/dL Influenza Type A Ag (NEGATIVE) Influenza Type B Ag (NEGATIVE) RSV (PCR) (Negative) SARS-CoV-2 (PCR) (NEGATIVE) 01/02/21 01/02/21 Range/Units 04:37 04:37 WBC 10.3 (4.0-10.5) K/mm3 RBC 4.22 (4.1-5.4) M/mm3 Hgb 12.1 (12.0-16.0) gm/dl Hct 37.1 (35-47) % MCV 87.9 (78-100) fl MCH 28.7 (26-32) pg MCHC 32.6 (32-36) g/dl RDW 15.5 H (11.5-14.0) % Plt Count 308 (150-450) K/mm3 MPV 8.9 (7.5-11.0) fl Gran % 66.6 H (36.0-66.0) % Eos # (Auto) 0.12 (0-0.5) Absolute Lymphs (auto) 2.12 (1.0-4.6) Absolute Monos (auto) 1.19 (0.0-1.3) Lymphocytes % 20.6 L (24.0-44.0) % Monocytes % 11.5 (0.0-12.0) % Eosinophils % 1.2 (0.00-5.0) % Basophils % 0.1 (0.0-0.4) % Absolute Granulocytes 6.87 (1.4-6.9) Basophils # 0.01 (0-0.4) PT (9.95-12.35) SECONDS INR (0.8-3.0) Sodium 129 L (137-145) mmol/L Potassium 4.1 (3.5-5.1) mmol/L Chloride 95 L (98-107) mmol/L Carbon Dioxide 26 (22-30) mmol/L Anion Gap 11.7 (5-15) MEQ/L BUN 42 H (7-17) mg/dL Creatinine 1.78 H (0.52-1.04) mg/dL Estimated GFR 28.9 ML/MIN Glucose 94 (74-106) mg/dL Calcium 9.3 (8.4-10.2) mg/dL Total Bilirubin (0.2-1.3) mg/dL AST (14-36) U/L ALT (0-35) U/L Alkaline Phosphatase (38-126) U/L Troponin I (0.000-0.034) ng/mL NT-Pro-B Natriuret Pep (0-1800) pg/mL Serum Total Protein (6.3-8.2) g/dL Albumin (3.5-5.0) g/dL Prealbumin (17.6-36.0) mg/dL Thyroxine (T4) (5.53-10.96) ug/dL TSH 3rd Generation (0.47-4.68) mIU/L Urine Color (YELLOW) Urine Appearance (CLEAR) Urine pH (5-6) Ur Specific [place] (1.005-1.025) Urine Protein (Negative) Urine Ketones (NEGATIVE) Urine Blood (0-5) Nino/ul Urine Nitrite (NEGATIVE) Urine Bilirubin (NEGATIVE) Urine Urobilinogen (0-1) mg/dL Ur Leukocyte Esterase (NEGATIVE) Urine WBC (Auto) (0-5) /HPF Urine RBC (Auto) (0-2) /HPF U Hyaline Cast (Auto) (0-2) /LPF U Epithel Cells (Auto) (FEW) /HPF Urine Bacteria (Auto) (NEGATIVE) /HPF Urine Mucus (Auto) (NEGATIVE) /HPF Urine Culture Reflexed (NO) Urine Glucose (NEGATIVE) mg/dL Influenza Type A Ag (NEGATIVE) Influenza Type B Ag (NEGATIVE) RSV (PCR) (Negative) SARS-CoV-2 (PCR) (NEGATIVE) Microbiology 01/01/21 16:42 Urine Culture - Preliminary Urine, Catheterized NO GROWTH TO DATE 01/01/21 13:28 Urine Culture - Preliminary Urine, Catheterized GRAM NEGATIVE ID AND SENSITIVITY PENDING - Other Procedures and Tests Respiratory Therapy 01/01/21 19:51 Oxygen Nasal Cannula 2 lpm Assessment/Plan (1) Elevated troponin Current Visit: Yes Status: Acute Assessment & Plan: nonspecific t wave changes in inferolateral leads, no chest pain. likely troponin is elevated secondary to renal dysfunction, will consult cardiology and follow Code(s): R77.8 - OTHER SPECIFIED ABNORMALITIES OF PLASMA PROTEINS (2) Dyspnea on exertion Current Visit: Yes Status: Acute Assessment & Plan: stable currently, will add d-dimer Code(s): R06.00 - DYSPNEA, UNSPECIFIED (3) Generalized weakness Current Visit: Yes Status: Acute Assessment & Plan: IV fluids and abx for uti Code(s): R53.1 - WEAKNESS (4) Renal insufficiency Current Visit: Yes Status: Acute Assessment & Plan: improving with hydration, hold hctz secondary to hyponatremia and RADHA (5) Urinary tract infection Current Visit: Yes Status: Acute Assessment & Plan: on zosyn, gram negative ID pending Code(s): N39.0 - URINARY TRACT INFECTION, SITE NOT SPECIFIED
--- NOTE | 2021-01-02 09:02 | XRAY ---
Indication: Dyspnea on exertion. Comparison: November 03, 2020. Portable chest unchanged again demonstrating left infrahilar subsegmental atelectasis/scarring, right hemidiaphragm elevation, and small hiatal hernia. Remaining heart and lungs unremarkable. Bony thorax intact again with osteopenia, degenerative changes, and scoliosis.
[2021-01-02] MEDS ORDERED: NON-FORMULARY ITEM (Albuterol Sulfate Mdi*** 1 PUFF) IH SCH (10:00)
[2021-01-02] MEDS ORDERED: ENOXAPARIN SODIUM SQ SCH (10:00)
[2021-01-02] MEDS: Toprol Xl 100 MG PO SCH (10:40)
[2021-01-02] MEDS: hydroDIURIL 25 MG PO SCH (10:40)
[2021-01-02] MEDS: ZOCOR 20MG PO SCH (10:40)
[2021-01-02] MEDS: Protonix 40MG Tablet PO SCH (10:40)
[2021-01-02] MEDS: Klor Con 10 MEQ PO SCH ×2 (10:40→21:50)
[2021-01-02] MEDS: SYNTHROID 50 MCG PO SCH (10:40)
[2021-01-02] MEDS: Cozaar 50 MG PO SCH (10:40)
[2021-01-02] MEDS ORDERED: Ambien 5 MG Tablet PO PRN (15:07)
--- NOTE | 2021-01-02 15:08 | XRAY ---
Indication: Dyspnea on exertion. Elevated d-dimer. History of pulmonary embolus. Patient received 5.3 mCi technetium 99 MAA for the perfusion portion of the exam. Patient inhaled 34.9 mCi aerosolized technetium 99 DTPA. Multiple planar images obtained. Comparison: None Perfusion images demonstrates small subsegmental perfusion defect involving the superior segment left lower lobe. No other segmental/subsegmental perfusion defects. Ventilation images demonstrate homogeneous radiopharmaceutical activity bilaterally. Incidental focal eventration of the right diaphragm. Impression: 1. Small subsegmental mismatched ventilation/perfusion defect left lower lobe. PIOPED criteria for diagnosis of pulmonary embolus is low probability. 2. Incidental focal eventration right hemidiaphragm.
[2021-01-02] MEDS: Sodium Chloride 0.9% 1000 ML 1,000 ML IV SCH (22:48)
[2021-01-03] MEDS: Zosyn 2.25 GM 2.25 GM in Sodium Chloride 100ML MINI-BAG PLUS 100 ML IV SCH ×4 (00:06→19:00)
[2021-01-03 07:06] LABS: Absolute Neutrophil Ct (ANC) 7.45 (1.4-6.9); BASOPHIL % 0.2 % (0.0-0.4); Basophil (Absolute #) 0.02 (0-0.4); Eosinophil % 2.1 % (0.00-5.0); Eosinophil (Absolute #) 0.21 (0-0.5); Hematocrit 35.7 % (35-47); Hemoglobin 11.5 gm/dl (12.0-16.0); Lymphocyte (Absolute #) 1.42 (1.0-4.6); Lymphocytes % 14.2 % (24.0-44.0); Mean Cell Volume 89.3 fl (78-100); Mean Corpuscular Hemoglobin 28.8 pg (26-32); Mean Corpuscular Hgb Concent. 32.2 g/dl (32-36); Mean Platelet Volume 9.1 fl (7.5-11.0); Neutrophil % 74.5 % (36.0-66.0); Platelet Count 280 K/mm3 (150-450); Red Cell Distribution Width 15.3 % (11.5-14.0)
[2021-01-03 07:19] LABS: ANION GAP 11.9 MEQ/L (5-15); Calcium 8.9 mg/dL (8.4-10.2); Creatinine 1 1.23 mg/dL (0.52-1.04); EST GLOMERULAR FILTRATION RATE 44.3 ML/MIN; MAGNESIUM 1.6 mg/dL (1.6-2.3); Potassium 3.8 mmol/L (3.5-5.1)
[2021-01-03] MEDS: SYNTHROID 50 MCG PO SCH (10:52)
[2021-01-03] MEDS: Toprol Xl 100 MG PO SCH (10:52)
[2021-01-03] MEDS: Klor Con 10 MEQ PO SCH ×2 (10:52→21:21)
[2021-01-03] MEDS: BRILINTA PO SCH ×2 (10:52→21:21)
[2021-01-03] MEDS: Cozaar 50 MG PO SCH (10:52)
[2021-01-03] MEDS: hydroDIURIL 25 MG PO SCH (10:53)
[2021-01-03] MEDS: Protonix 40MG Tablet PO SCH (10:53)
[2021-01-03] MEDS: ZOCOR 20MG PO SCH (10:53)
[2021-01-03] MEDS: MARY'S MOUTHWASH PO SCH ×3 (14:09→21:21)
--- NOTE | 2021-01-03 14:43 | PCM.NOTE ---
Date and Time: 01/03/21 1442 Subjective Assessment: 85 yr old female seen and examined today. Patient states that she is feeling much better. She is concerned that she has had multiple UTIs. She does report being short of breath at times. She denies any uterine or bladder prolapse. She has no other reported concerns at this time. - Review of Systems Constitutional: Weakness, No Fever, No Weight Loss Eyes: No Symptoms Ears, Nose, & Throat: No Symptoms Respiratory: Short Of Breath, No Cough Cardiac: No Chest Pain, No Edema, No Palpitations Abdominal/Gastrointestinal: No Abdominal Pain, No Nausea, No Vomiting, No Diarrhea, No Constipation Genitourinary Symptoms: Other (Patient reported just not feeling well and didnt know she had a UTI) Musculoskeletal: No Symptoms Skin: No Symptoms Neurological: No Headache Psychological: No Alcohol Abuse, No Drug Abuse, No Anxiety, No Depression Objective Exam General Appearance: no apparent distress Neurologic Exam: alert, oriented x 3, cooperative, normal mood/affect Skin Exam: normal color, warm, dry Ears, Nose, Throat Exam: moist mucous membranes Neck Exam: normal inspection Respiratory Exam: normal breath sounds, lungs clear, No respiratory distress, No diminished breath sounds Cardiovascular Exam: regular rate/rhythm, normal heart sounds, No murmur, No friction rub, No gallop Gastrointestinal/Abdomen Exam: soft, normal bowel sounds, No tenderness, No distention, No mass, No guarding Extremity Exam: normal inspection, No pedal edema, No swelling, No tenderness OBJECTIVE DATA Vital Signs: Vital Signs - 24 hr Temp Pulse Resp BP Pulse Ox 01/03/21 12:00 97.8 F 64 16 116/66 95 01/03/21 07:53 98.1 F 62 18 146/65 96 01/03/21 07:11 95 01/03/21 04:15 97.7 F 65 18 106/56 97 01/03/21 00:10 98.3 F 62 18 115/61 96 01/02/21 20:31 97 01/02/21 20:06 97.7 F 66 16 115/58 97 01/02/21 16:00 97.8 F 62 18 115/59 96 Pain Assessment - Last Documented Pain Intensity 0 Pain Scale Used 0-10 Pain Scale Intake and Output: Intake & Output 01/01/21 01/02/21 01/03/21 01/04/21 11:59 11:59 11:59 11:59 Intake Total 005 0692 240 Output Total 988 1175 Balance 602 559 240 Weight 72 kg 72.6 kg Lab Results: Lab Results-Last 24 Hours 01/03/21 01/03/21 Range/Units 06:00 06:00 WBC 10.0 (4.0-10.5) K/mm3 RBC 4.00 L (4.1-5.4) M/mm3 Hgb 11.5 L (12.0-16.0) gm/dl Hct 35.7 (35-47) % MCV 89.3 (78-100) fl MCH 28.8 (26-32) pg MCHC 32.2 (32-36) g/dl RDW 15.3 H (11.5-14.0) % Plt Count 280 (150-450) K/mm3 MPV 9.1 (7.5-11.0) fl Gran % 74.5 H (36.0-66.0) % Eos # (Auto) 0.21 (0-0.5) Absolute Lymphs (auto) 1.42 (1.0-4.6) Absolute Monos (auto) 0.90 (0.0-1.3) Lymphocytes % 14.2 L (24.0-44.0) % Monocytes % 9.0 (0.0-12.0) % Eosinophils % 2.1 (0.00-5.0) % Basophils % 0.2 (0.0-0.4) % Absolute Granulocytes 7.45 H (1.4-6.9) Basophils # 0.02 (0-0.4) Sodium 130 L (137-145) mmol/L Potassium 3.8 (3.5-5.1) mmol/L Chloride 98 (98-107) mmol/L Carbon Dioxide 23 (22-30) mmol/L Anion Gap 11.9 (5-15) MEQ/L BUN 24 H (7-17) mg/dL Creatinine 1.23 H (0.52-1.04) mg/dL Estimated GFR 44.3 ML/MIN Glucose 92 (74-106) mg/dL Calcium 8.9 (8.4-10.2) mg/dL Magnesium 1.6 (1.6-2.3) mg/dL Radiology Exams: Radiology Procedures Category Date Time Status CHEST 1 VIEW (PORTABLE) Routine Exams 01/02/21 08:21 Completed PULMONARY PERF VENTILATION [NUCMED] Routine Exams 01/02/21 08:56 Completed Assessment/Plan (1) Elevated troponin Current Visit: Yes Status: Acute Assessment & Plan: Patient had mildly elevated trop with no chest pain. This was attributed to RADHA. It could also be related to CHF as well. EKG did not indicate NSTEMI or STEMI. Will continue to monitor for chest pain. Cardiology was already consulted and had tele med visit with patient. Code(s): R77.8 - OTHER SPECIFIED ABNORMALITIES OF PLASMA PROTEINS (2) Dyspnea on exertion Current Visit: Yes Status: Acute Assessment & Plan: Possibly related to CHF. Patient had VQ scan that indicated low probability for PE. Vital signs have been stable. Will continue to monitor for worsening SOB. Code(s): R06.00 - DYSPNEA, UNSPECIFIED (3) Generalized weakness Current Visit: Yes Status: Acute Assessment & Plan: Multifactorial in nature including CHF hx of recent [place] and UTI. Patient may benefit from PT evaluation Code(s): R53.1 - WEAKNESS (4) Renal insufficiency Current Visit: Yes Status: Acute Assessment & Plan: Patient's RADHA has improved. Cr has trended down and gfr has trended up. Will continue to trend labs (5) Urinary tract infection Current Visit: Yes Status: Acute Assessment & Plan: Patient is on IV antibiotics. Culture showed ecoli sensitive to current antibiotics. Will transition to PO tomorrow. Code(s): N39.0 - URINARY TRACT INFECTION, SITE NOT SPECIFIED
[2021-01-03] MEDS: Sodium Chloride 0.9% 1000 ML 1,000 ML IV SCH (21:18)
[2021-01-04] MEDS: Zosyn 2.25 GM 2.25 GM in Sodium Chloride 100ML MINI-BAG PLUS 100 ML IV SCH ×3 (06:18)
[2021-01-04] MEDS: hydroDIURIL 25 MG PO SCH (09:57)
[2021-01-04] MEDS: Toprol Xl 100 MG PO SCH (09:57)
[2021-01-04] MEDS: SYNTHROID 50 MCG PO SCH (09:57)
[2021-01-04] MEDS: Protonix 40MG Tablet PO SCH (09:57)
[2021-01-04] MEDS: ZOCOR 20MG PO SCH (09:57)
[2021-01-04] MEDS: Klor Con 10 MEQ PO SCH ×2 (09:58→21:22)
[2021-01-04] MEDS: Cozaar 50 MG PO SCH (09:58)
[2021-01-04] MEDS: BRILINTA PO SCH ×2 (09:58→21:22)
[2021-01-04] MEDS: MARY'S MOUTHWASH PO SCH ×4 (10:01→21:23)
--- NOTE | 2021-01-04 10:58 | PCM.NOTE ---
Date and Time: 01/04/21 1058 Subjective Assessment: 85 yr old female seen and examined today. Patient reports that she feels better today. She is still concerned about feeling weak. Patient reports that she has been concerned about getting up to walk to go to bathroom and for longer distances. She would like to discuss her care with Dr Quiroz prior to discharge. OBJECTIVE DATA Vital Signs: Vital Signs - 24 hr Temp Pulse Resp BP Pulse Ox 01/04/21 07:29 98 01/04/21 07:11 98.7 F 68 19 111/61 98 01/04/21 04:05 97.8 F 64 17 107/58 97 01/03/21 23:58 98.3 F 66 18 116/58 96 01/03/21 20:08 97.3 F 78 16 110/59 95 01/03/21 19:12 95 01/03/21 16:00 97.4 F 66 18 118/56 96 01/03/21 12:00 97.8 F 64 16 116/66 95 Pain Assessment - Last Documented Pain Intensity 0 Pain Scale Used 0-10 Pain Scale Intake and Output: Intake & Output 01/01/21 01/02/21 01/03/21 01/04/21 11:59 11:59 11:59 11:59 Intake Total 952 1734 2834 Output Total 350 1175 2326 Balance 602 559 508 Weight 72 kg 72.6 kg 73.4 kg Assessment/Plan (1) Elevated troponin Current Visit: Yes Status: Acute Assessment & Plan: Repeat trop this am was wnl. Patient continues to deny CP. Patient can follow up with Dr Johnson as outpatient. Code(s): R77.8 - OTHER SPECIFIED ABNORMALITIES OF PLASMA PROTEINS (2) Dyspnea on exertion Current Visit: Yes Status: Acute Assessment & Plan: Patient has been ambulating with staff for short distances and was not complaining of dyspnea today. Will continue to monitor. Code(s): R06.00 - DYSPNEA, UNSPECIFIED (3) Generalized weakness Current Visit: Yes Status: Acute Assessment & Plan: Patient continues to reports her symptoms of weakness have been gradually improving. Patient may benefit from home PT for reconditioning. Code(s): R53.1 - WEAKNESS (4) Renal insufficiency Current Visit: Yes Status: Acute Assessment & Plan: Resolved (5) Urinary tract infection Current Visit: Yes Status: Acute Assessment & Plan: Patient is being transitioned to PO antibiotics today. Will see how she tolerates. Patient will be discharged tomorrow. Code(s): N39.0 - URINARY TRACT INFECTION, SITE NOT SPECIFIED
[2021-01-04 11:35] LABS: Absolute Neutrophil Ct (ANC) 5.15 (1.4-6.9); BASOPHIL % 0.3 % (0.0-0.4); Basophil (Absolute #) 0.02 (0-0.4); Eosinophil % 3.1 % (0.00-5.0); Eosinophil (Absolute #) 0.22 (0-0.5); Hematocrit 36.6 % (35-47); Hemoglobin 11.8 gm/dl (12.0-16.0); Lymphocyte (Absolute #) 0.93 (1.0-4.6); Lymphocytes % 13.2 % (24.0-44.0); Mean Cell Volume 89.1 fl (78-100); Mean Corpuscular Hemoglobin 28.7 pg (26-32); Mean Corpuscular Hgb Concent. 32.2 g/dl (32-36); Mean Platelet Volume 8.7 fl (7.5-11.0); Monocyte (Absolute #) 0.75 (0.0-1.3); Monocytes % 10.6 % (0.0-12.0); Neutrophil % 72.8 % (36.0-66.0); Platelet Count 296 K/mm3 (150-450); Red Blood Count 4.11 M/mm3 (4.1-5.4); Red Cell Distribution Width 15.6 % (11.5-14.0); White Blood Count 7.1 K/mm3 (4.0-10.5)
[2021-01-04 11:52] LABS: ANION GAP 8.3 MEQ/L (5-15); Calcium 8.7 mg/dL (8.4-10.2); Creatinine 1 0.96 mg/dL (0.52-1.04); Potassium 3.5 mmol/L (3.5-5.1)
[2021-01-04] MEDS: BACTRIM DS TABLET PO SCH ×2 (11:57→22:26)
--- NOTE | 2021-01-05 08:42 | PCM.DS ---
Discharge Summary Date of Admission: 01/01/21 17:22 Admitting Physician: ARTURO SOLER Consults: Consults on Case 01/02/21 08:16 Consult Cardiology ROUTINE Primary Care Provider: ARTURO SOLER Allergies Allergies cephalexin [From Keflex] Allergy (Verified 01/01/21 13:20) ciprofloxacin Allergy (Verified 01/01/21 13:20) Hospital Summary - Hospital Course Hospital Course: patient was admitted with uti, weakness and recurrent falls. lives alone, requires a cane for ambulation. hx of cad with STEMI and stent placement with Dr Brizuela - Vitals & Intake/Output Vital Signs: Vital Signs Temperature 97.9 F 01/05/21 07:38 Pulse Rate 80 01/05/21 07:38 Respiratory Rate 18 01/05/21 07:38 Blood Pressure 131/61 01/05/21 07:38 O2 Sat by Pulse Oximetry 98 01/05/21 07:38 Intake & Output: Intake & Output 01/02/21 01/03/21 01/04/21 01/05/21 11:59 11:59 11:59 11:59 Intake Total 952 1734 2834 1320 Output Total 350 1175 2326 2625 Balance 602 559 508 -1305 Weight 72 kg 72.6 kg 73.4 kg 73.1 kg - Lab Result Diagrams: 01/04/21 11:13 01/04/21 11:13 Lab Results-Last 24 Hrs: Lab Results-Last 24 Hours 01/04/21 01/04/21 01/04/21 Range/Units 11:13 11:13 11:13 WBC 7.1 (4.0-10.5) K/mm3 RBC 4.11 (4.1-5.4) M/mm3 Hgb 11.8 L (12.0-16.0) gm/dl Hct 36.6 (35-47) % MCV 89.1 (78-100) fl MCH 28.7 (26-32) pg MCHC 32.2 (32-36) g/dl RDW 15.6 H (11.5-14.0) % Plt Count 296 (150-450) K/mm3 MPV 8.7 (7.5-11.0) fl Gran % 72.8 H (36.0-66.0) % Eos # (Auto) 0.22 (0-0.5) Absolute Lymphs (auto) 0.93 L (1.0-4.6) Absolute Monos (auto) 0.75 (0.0-1.3) Lymphocytes % 13.2 L (24.0-44.0) % Monocytes % 10.6 (0.0-12.0) % Eosinophils % 3.1 (0.00-5.0) % Basophils % 0.3 (0.0-0.4) % Absolute Granulocytes 5.15 (1.4-6.9) Basophils # 0.02 (0-0.4) Sodium 130 L (137-145) mmol/L Potassium 3.5 (3.5-5.1) mmol/L Chloride 98 (98-107) mmol/L Carbon Dioxide 26 (22-30) mmol/L Anion Gap 8.3 (5-15) MEQ/L BUN 11 (7-17) mg/dL Creatinine 0.96 (0.52-1.04) mg/dL Estimated GFR 59.0 ML/MIN Glucose 99 (74-106) mg/dL Calcium 8.7 (8.4-10.2) mg/dL Troponin I 0.017 (0.000-0.034) ng/mL Micro Results-Entire Visit: Microbiology 01/01/21 16:42 Urine Culture - Final Urine, Catheterized NO GROWTH 01/01/21 13:28 Urine Culture - Final Urine, Catheterized Escherichia Coli - Procedures and Test Procedures and Tests throughout Hospitalization: Therapy Orders & Screens 01/01/21 17:55 OT Screen per Nursing Assess ONCE Comment: Protocol Order Physician Instructions: Greater than 3 points order OT Admission Screening Reason For Exam: Triggered on Admission Diagnosis: UTI Open Wound/Cellutlitis/Pressure Ulcers: No Acute Fx/ORIF/Change in wt bearing status: No Severe MUSCULOSKELETAL pain: No ADL Dysfunction: Yes Acute CVA w/Hemiparesis/Hemiplegia: No Decreased Functional Mobility/Strength: Yes Sprain/Strain: No Acute Post-op Mobility Dysfunction: No Total Points: 4 PT Screen per Nursing Assess ONCE Comment: Protocol Order Physician Instructions: Greater than 3 points order PT Admission Screenin Reason For Exam: Triggered on Admission Diagnosis: UTI Open Wound/Cellutlitis/Pressure Ulcers: No Acute Fx/ORIF/Change in wt bearing status: No Severe MUSCULOSKELETAL pain: No ADL Dysfunction: Yes Acute CVA w/Hemiparesis/Hemiplegia: No Decreased Functional Mobility/Strength: Yes Sprain/Strain: No Acute Post-op Mobility Dysfunction: No Total Points: 4 01/01/21 18:04 RT Screen per Nursing Assess ONCE Comment: Protocol Order Physician Instructions: Greater than 3 points order RT Admission Screen Reason For Exam: Triggered on Admission Diagnosis: UTI Diagnosis: UTI Pneumonia: No Home O2: No Asthma: Yes CHF: No Home CPAP/BIPAP: Yes Home Nebs/MDI: No Total Points: 9 01/01/21 19:51 Oxygen Nasal Cannula 2 lpm Comment: Diagnosis: UTI 01/01/21 19:52 Respiratory Therapy Assessment DAILY Comment: Diagnosis: UTI Discharge Exam General Appearance: no apparent distress, alert Respiratory Exam: normal breath sounds, lungs clear, No respiratory distress Cardiovascular Exam: regular rate/rhythm, normal heart sounds Gastrointestinal/Abdomen Exam: soft, No tenderness, No mass Skin Exam: normal color, warm, dry Final Diagnosis/Problem List - Final Discharge Diagnosis/Problem (1) Urinary tract infection Current Visit: Yes Status: Acute Assessment & Plan: e coli sens to bactrim, tolerating at this time. Code(s): N39.0 - URINARY TRACT INFECTION, SITE NOT SPECIFIED (2) Generalized weakness Current Visit: Yes Status: Acute Assessment & Plan: patient agrees to home health consult and home therapy. patient is home bound, requires a cane to ambulate and leaving the home requires a serious and taxing effort Code(s): R53.1 - WEAKNESS (3) Renal insufficiency Current Visit: Yes Status: Acute Assessment & Plan: improved back to baseline with hydration during stay (4) Coronary artery disease Current Visit: Yes Status: Acute Assessment & Plan: stable, patient has significant deconditioning following her [place], will consult home health for therapy Code(s): I25.10 - ATHSCL HEART DISEASE OF [place] CORONARY ARTERY W/O ANG PCTRS - Discharge Disposition: Home, Self-Care Condition: Stable Prescriptions: New Smz/Tmp Ds Tablet [Bactrim Ds Tablet] 1 tab PO Q12H #10 tablet Continue Rosuvastatin Calcium [Crestor] 10 mg PO DAILY Potassium Chloride [Klor-Con 10] 10 meq PO BID Metoprolol Succinate [Toprol Xl] 100 mg PO DAILY Levothyroxine Sodium 50 mcg PO QAM Esomeprazole Magnesium [Nexium] 40 mg PO DAILY Celecoxib [Celebrex] 200 mg PO DAILY Hydrochlorothiazide 25 mg [hydroDIURIL 25 MG] 25 mg PO DAILY Albuterol Sulfate Mdi [Proair Hfa MDI] 1 puff IH QID Losartan Potassium 50 mg [Cozaar 50 MG] 50 mg PO DAILY Spironolactone 25 mg [Aldactone 25 MG] 25 mg PO DAILY Ezetimibe 10 mg [Zetia 10 MG] 10 mg PO DAILY Ticagrelor [Brilinta] 90 mg PO BID Follow up with: PAOLA BRIZUELA MD [NON-STAFF PHY W/O PRIVILEGES] - 02/06/21 ARTURO SOLER MD [Primary Care Provider] - 1 Week
[2021-01-05] MEDS: Klor Con 10 MEQ PO SCH (09:23)
[2021-01-05] MEDS: Toprol Xl 100 MG PO SCH (09:23)
[2021-01-05] MEDS: Protonix 40MG Tablet PO SCH (09:23)
[2021-01-05] MEDS: Cozaar 50 MG PO SCH (09:23)
[2021-01-05] MEDS: BRILINTA PO SCH (09:23)
[2021-01-05] MEDS: ZOCOR 20MG PO SCH (09:23)
[2021-01-05] MEDS: hydroDIURIL 25 MG PO SCH (09:23)
[2021-01-05] MEDS: SYNTHROID 50 MCG PO SCH (09:23)
[2021-01-05] MEDS: MARY'S MOUTHWASH PO SCH ×2 (09:31→13:28)
[2021-01-05] MEDS: BACTRIM DS TABLET PO SCH (10:56)
[2021-01-05 12:04] VITALS: BP 115/58; PULSE 76; O2SAT 97
== END 2021-01-05 14:32 | disposition home or self-care (01) ==
LOC: ED 12:55 → MED SURG 17:22
PROVIDERS: ADMIT Family Medicine; ATTEND Family Medicine
DX: N39.0 Urinary tract infection, site not specified (principal); R53.1 Weakness; E03.9 Hypothyroidism, unspecified; I11.0 Hypertensive heart disease with heart failure; I50.9 Heart failure, unspecified; N28.9 Disorder of kidney and ureter, unspecified; G47.30 Sleep apnea, unspecified; Z79.899 Other long term (current) drug therapy; R77.8 Other specified abnormalities of plasma proteins; E78.5 Hyperlipidemia, unspecified; I25.10 Atherosclerotic heart disease of native coronary artery without angina pectoris; Z20.828 Contact with and (suspected) exposure to other viral communicable diseases; Z98.61 Coronary angioplasty status; R29.6 Repeated falls; R06.00 Dyspnea, unspecified
CPT/HCPCS: 0241U; 36000; 36415; 51702; 71045; 78582; 80048; 80053; 81001; 83735; 83880; 84134; 84436; 84443; 84484; 85025; 85379; 85610; 87077; 87086; 87186; 93005; 93041; 93268; 94760; 96360; 96361; 96365; 99285; A9540; A9567; G0378; P9612; Q3014; J0696; J1650; J2543; A9270-GY

== ENCOUNTER 2021-07-11 15:55 | Emergency (ER) | payer MEDICARE ==
[2021-07-11 16:35] LABS: BASOPHIL % 0.5 % (0.0-0.4); Basophil (Absolute #) 0.04 (0-0.4); Eosinophil % 0.8 % (0.00-5.0); Eosinophil (Absolute #) 0.06 (0-0.5); Hematocrit 41.3 % (35-47); Hemoglobin 13.4 gm/dl (12.0-16.0); Lymphocyte (Absolute #) 1.48 (1.0-4.6); Lymphocytes % 18.7 % (24.0-44.0); Mean Cell Volume 91.6 fl (78-100); Mean Corpuscular Hemoglobin 29.7 pg (26-32); Mean Corpuscular Hgb Concent. 32.4 g/dl (32-36); Mean Platelet Volume 8.6 fl (7.5-11.0); Monocyte (Absolute #) 1.13 (0.0-1.3); Monocytes % 14.3 % (0.0-12.0); Neutrophil % 65.7 % (36.0-66.0); Platelet Count 375 K/mm3 (150-450); Red Blood Count 4.51 M/mm3 (4.1-5.4); Red Cell Distribution Width 13.5 % (11.5-14.0); White Blood Count 7.9 K/mm3 (4.0-10.5)
[2021-07-11 16:43] LABS: Appearance CLOUDY (CLEAR); Bacteria RARE /HPF (NEGATIVE); Bilirubin NEGATIVE (NEGATIVE); Blood NEGATIVE Ery/ul (0-5); Epithelial Cells MANY /HPF (FEW); Glucose NEGATIVE (NEGATIVE); Ketones TRACE (NEGATIVE); Leukocyte Esterase SMALL (NEGATIVE); Mucus MODERATE /HPF (NEGATIVE); Nitrite NEGATIVE (NEGATIVE); Non-Squamous Epithelial Cells RARE /HPF (FEW); Protein,Urine Dip 30 (Negative); Specific Gravity 1.021 (1.005-1.025); Urobilinogen NEGATIVE mg/dL (0-1)
[2021-07-11 16:49] LABS: ALBUMIN 4.2 g/dL (3.5-5.0); ANION GAP 16.2 MEQ/L (5-15); BILIRUBIN,TOTAL 0.9 mg/dL (0.2-1.3); Creatinine 1 1.31 mg/dL (0.52-1.04); EST GLOMERULAR FILTRATION RATE 41.2 ML/MIN; Potassium 3.9 mmol/L (3.5-5.1); Total Protein 7.5 g/dL (6.3-8.2)
[2021-07-11] MEDS ORDERED: Macrobid 100MG Capsule PO ONE (18:07)
[2021-07-11] MEDS ORDERED: Macrobid 100MG Capsule ONE (18:16)
[2021-07-11 18:22] VITALS: BP 132/68; PULSE 94
[2021-07-11 18:31] VITALS: O2SAT 96
--- NOTE | 2021-07-11 18:31 | ERPHSYRPT ---
- History of Present Illness Time Seen by Provider: 07/11/21 16:10 Source: patient Exam Limitations: no limitations Patient Subjective Stated Complaint: PT states "I still have a urinary infection, I still feel bad. I went to Dr. Soler and he told me I had a UTI and put me on pills, I stopped taking them because I thought they were making me sick." Triage Nursing Assessment: Pt presented alert and oriented X 3, skin pwd Pt ambulates with a slow gait. Pt able to speak in clear full sentences pt in no apparent respiratory distress. Physician History: 85 years old female presented in the ER with chief complaint of dysuria. Patient reports she was evaluated outpatient and took Bactrim for 3 days but still does not feel good, feels weak fatigued tired and some suprapubic discomfort. No fever or chills. Denies any nausea or vomiting. Timing/Duration: week(s) (1), worse Activites at Onset: rest Pain Radiation: none Severity of Pain-Max: none Severity of Pain-Current: none Prior abdominal problems: none Sexual intercourse history: non-contributory Modifying Factors: Improves With: nothing Associated Symptoms: dysuria Allergies/Adverse Reactions: cephalexin [From Keflex] Allergy (Verified 01/01/21 13:20) ciprofloxacin Allergy (Verified 01/01/21 13:20) Home Medications: Esomeprazole Magnesium [Nexium] 40 mg PO DAILY 01/14/17 [History] Levothyroxine Sodium 50 mcg PO QAM 01/14/17 [History] Metoprolol Succinate [Toprol Xl] 100 mg PO DAILY 01/14/17 [History] Potassium Chloride [Klor-Con 10] 10 meq PO BID 01/14/17 [History] Rosuvastatin Calcium [Crestor] 10 mg PO DAILY 01/14/17 [History] Celecoxib [Celebrex] 200 mg PO DAILY 08/29/20 [History] Hydrochlorothiazide 25 mg [hydroDIURIL 25 MG] 25 mg PO DAILY 08/29/20 [History] Albuterol Sulfate Mdi [Proair Hfa MDI] 1 puff IH QID 01/01/21 [History] Ezetimibe 10 mg [Zetia 10 MG] 10 mg PO DAILY 01/01/21 [History] Losartan Potassium 50 mg [Cozaar 50 MG] 50 mg PO DAILY 01/01/21 [History] Spironolactone 25 mg [Aldactone 25 MG] 25 mg PO DAILY 01/01/21 [History] Ticagrelor [Brilinta] 90 mg PO BID 01/01/21 [History] Hx Tetanus, Diphtheria Vaccination/Date Given: No Hx Influenza Vaccination/Date Given: Yes Hx Pneumococcal Vaccination/Date Given: Yes Travel Risk - International Travel Have you traveled outside of the country in past 3 weeks: No - Coronavirus Screening Are you exhibiting any of the following symptoms?: No Close contact with a COVID-19 positive Pt in past 14-21 Days: No - Vaccine Status Have you recieved a Covid-19 vaccination: Yes [employer] Consultant: Moderna - Vaccination Dates Date of 2cond Vaccination (if applicable): 11/2020 - Review of Systems Constitutional: Fatigue, Weakness Eyes: No Symptoms Ears, Nose, & Throat: No Symptoms Respiratory: No Symptoms Cardiac: No Symptoms Abdominal/Gastrointestinal: No Symptoms Genitourinary Symptoms: Dysuria Musculoskeletal: No Symptoms Skin: No Symptoms Neurological: No Symptoms Psychological: No Symptoms Endocrine: No Symptoms Hematologic/Lymphatic: No Symptoms - Past Medical History Pertinent Past Medical History: Yes Neurological History: No Pertinent History ENT History: No Pertinent History Cardiac History: Deep Vein Thrombosis, Hypertension, Myocardial Infarction ([place]) Respiratory History: Asthma, Pulmonary Embolism, Sleep Apnea Endocrine Medical History: Hypothyroidism Musculoskeletal History: Osteoarthritis GI Medical History: Other History: Other Psycho-Social History: No Pertinent History Female Reproductive Disorders: Other Other Medical History: R TKA - Past Surgical History Past Surgical History: Yes Neuro Surgical History: No Pertinent History Cardiac: No Pertinent History, Cardiac Catheterization, Cardiac Stent Respiratory: No Pertinent History Gastrointestinal: No Pertinent History Genitourinary: No Pertinent History Musculoskeletal: Joint Replacement Female Surgical History: No Pertinent History Other Surgical History: total right knee replacement, 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 - Social History Smoking Status: Never smoker Exposure to second hand smoke: No Drug Use: none Patient Lives Alone: Yes - Nursing Vital Signs Nursing Vital Signs: Initial Vital Signs Temperature 97.9 F 07/11/21 16:08 Pulse Rate 100 H 07/11/21 16:08 Respiratory Rate 20 07/11/21 16:08 Blood Pressure 145/97 07/11/21 16:08 O2 Sat by Pulse Oximetry 97 07/11/21 16:08 Pain Scale Pain Intensity 0 - Physical Exam General Appearance: no apparent distress, alert Eye Exam: PERRL/EOMI Ears, Nose, Throat Exam: normal ENT inspection Neck Exam: normal inspection, supple, full range of motion Respiratory Exam: normal breath sounds, lungs clear Cardiovascular Exam: regular rate/rhythm, normal heart sounds Gastrointestinal/Abdomen Exam: soft, normal bowel sounds, No tenderness Back Exam: normal inspection, normal range of motion Extremity Exam: normal inspection, normal range of motion Neurologic Exam: alert, oriented x 3, cooperative Skin Exam: normal color SpO2 Interpretation: normal SpO2: 96 O2 Delivery: Room Air Ordered Tests: Active Orders 24 hr Category Date Time Status CBC W DIFF Stat Lab 07/11/21 16:25 Completed CMP Stat Lab 07/11/21 16:25 Completed CULTURE,URINE Stat Lab 07/11/21 16:28 Received UA W/RFX UR CULTURE Stat Lab 07/11/21 16:28 Completed Medication Summary Discontinued Medications Generic Name Dose Route Start Last Admin Trade Name Franco PRN Reason Stop Dose Admin Nitrofurantoin Macrocrystals 100 mg 07/11/21 18:07 07/11/21 18:17 Nitrofurantoin Macro 100 Mg Capsule PO 07/11/21 18:08 100 mg STAT ONE Administration Nitrofurantoin Macrocrystals Confirm 07/11/21 18:16 Nitrofurantoin Macro 100 Mg Capsule Administered 07/11/21 18:17 Dose 100 mg .ROUTE .[facility] / TLL ONE Lab/Rad Data: Laboratory Result Diagrams 07/11/21 16:25 07/11/21 16:25 Laboratory Results 07/11/21 07/11/21 07/11/21 Range/Units 16:28 16:25 16:25 WBC 7.9 (4.0-10.5) K/mm3 RBC 4.51 (4.1-5.4) M/mm3 Hgb 13.4 (12.0-16.0) gm/dl Hct 41.3 (35-47) % MCV 91.6 (78-100) fl MCH 29.7 (26-32) pg MCHC 32.4 (32-36) g/dl RDW 13.5 (11.5-14.0) % Plt Count 375 (150-450) K/mm3 MPV 8.6 (7.5-11.0) fl Gran % 65.7 (36.0-66.0) % Eos # (Auto) 0.06 (0-0.5) Absolute Lymphs (auto) 1.48 (1.0-4.6) Absolute Monos (auto) 1.13 (0.0-1.3) Lymphocytes % 18.7 L (24.0-44.0) % Monocytes % 14.3 H (0.0-12.0) % Eosinophils % 0.8 (0.00-5.0) % Basophils % 0.5 (0.0-0.4) % Absolute Granulocytes 5.20 (1.4-6.9) Basophils # 0.04 (0-0.4) Sodium 132 L (137-145) mmol/L Potassium 3.9 (3.5-5.1) mmol/L Chloride 99 (98-107) mmol/L Carbon Dioxide 21 L (22-30) mmol/L Anion Gap 16.2 H (5-15) MEQ/L BUN 23 H (7-17) mg/dL Creatinine 1.31 H (0.52-1.04) mg/dL Estimated GFR 41.2 ML/MIN Glucose 117 H (74-106) mg/dL Calcium 10.0 (8.4-10.2) mg/dL Total Bilirubin 0.90 (0.2-1.3) mg/dL AST 20 (14-36) U/L ALT 14 (0-35) U/L Alkaline Phosphatase 98 (38-126) U/L Serum Total Protein 7.5 (6.3-8.2) g/dL Albumin 4.2 (3.5-5.0) g/dL Urine Color MATT (YELLOW) Urine Appearance CLOUDY (CLEAR) Urine pH 5.0 (5-6) Ur Specific [place] 1.021 (1.005-1.025) Urine Protein 30 (Negative) Urine Ketones TRACE (NEGATIVE) Urine Blood NEGATIVE (0-5) Nino/ul Urine Nitrite NEGATIVE (NEGATIVE) Urine Bilirubin NEGATIVE (NEGATIVE) Urine Urobilinogen NEGATIVE (0-1) mg/dL Ur Leukocyte Esterase SMALL (NEGATIVE) Urine WBC (Auto) 16-25 (0-5) /HPF Urine RBC (Auto) 16-25 (0-2) /HPF U Epithel Cells (Auto) MANY (FEW) /HPF Urine Bacteria (Auto) RARE (NEGATIVE) /HPF U Non-Squamous Epi Cells RARE (FEW) /HPF Urine Mucus (Auto) MODERATE (NEGATIVE) /HPF Urine Culture Reflexed YES (NO) Urine Glucose NEGATIVE (NEGATIVE) mg/dL - Progress Progress: re-examined, unchanged Air Movement: good Progress Note: 07/11/21 18:24 She has questionable UTI, will start her on Macrobid. She has normal white count, mildly low bicarb and mildly elevated gap. Recommended increase hydration and outpatient follow-up. No abdominal tenderness. Do not think needs any work-up and is stable for discharge. Blood Culture(s) Obtained: No Antibiotics given: Yes Counseled pt/family regarding: lab results, diagnosis, need for follow-up - Departure Departure Disposition: Home Clinical Impression: UTI (urinary tract infection) Qualifiers: Urinary tract infection type: site unspecified Hematuria presence: with hematuria Qualified Code(s): N39.0 - Urinary tract infection, site not specified Condition: Stable Critical Care Time: No Referrals: ARTURO SOLER MD [Primary Care Provider] - Follow Up with PCP/3 days Instructions: Urinary Tract Infections in Adults, Urinary Tract Infection, Adult ([place]) Additional Instructions: Drink plenty of fluids. Take Tylenol as needed. Continue with antibiotics. Follow-up with primary care for reevaluation. Return to ER for worsening UTI symptoms or if develop fever chills/abdominal pain etc. Prescriptions: Nitrofurantoin Macro 100 mg [Macrobid 100MG Capsule] 100 mg PO BID #14 cap
== END 2021-07-11 18:41 | disposition home or self-care (01) ==
LOC: ED 15:55
DX: N39.0 Urinary tract infection, site not specified (principal)
CPT/HCPCS: 36000; 36415; 80053; 81001; 85025; 87086; 99284; A9270-GY

== ENCOUNTER 2021-08-08 04:35 | Emergency (ER) | payer MEDICARE ==
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
[2021-08-08] MEDS ORDERED: Sodium Chloride 0.9% 1000 ML 1,000 ML IV SCH (05:30)
[2021-08-08] MEDS ORDERED: Sodium Chloride 0.9% 1000 ML 1,000 ML ONE (05:37)
[2021-08-08 05:40] LABS: Absolute Neutrophil Ct (ANC) 4.96 (1.4-6.9); BASOPHIL % 0.1 % (0.0-0.4); Basophil (Absolute #) 0.01 (0-0.4); Eosinophil % 0.6 % (0.00-5.0); Eosinophil (Absolute #) 0.05 (0-0.5); Hematocrit 53.8 % (35-47); Hemoglobin 16.8 gm/dl (12.0-16.0); Lymphocytes % 34.3 % (24.0-44.0); Mean Cell Volume 94.2 fl (78-100); Mean Corpuscular Hemoglobin 29.4 pg (26-32); Mean Corpuscular Hgb Concent. 31.2 g/dl (32-36); Mean Platelet Volume 10.1 fl (7.5-11.0); Monocyte (Absolute #) 0.73 (0.0-1.3); Monocytes % 8.3 % (0.0-12.0); Neutrophil % 56.7 % (36.0-66.0); Platelet Count 369 K/mm3 (150-450); Red Blood Count 5.71 M/mm3 (4.1-5.4); Red Cell Distribution Width 14.6 % (11.5-14.0); White Blood Count 8.8 K/mm3 (4.0-10.5)
[2021-08-08 05:45] LABS: ISTAT CREA 1.2 mg/dL (0.6-1.3)
[2021-08-08 06:09] LABS: Appearance TURBID (CLEAR); Bacteria MODERATE /HPF (NEGATIVE); Bilirubin NEGATIVE (NEGATIVE); Blood SMALL Ery/ul (0-5); Epithelial Cells RARE /HPF (FEW); Glucose 150 mg/dL (NEGATIVE); Ketones TRACE (NEGATIVE); Leukocyte Esterase MODERATE (NEGATIVE); Mucus SLIGHT /HPF (NEGATIVE); Nitrite NEGATIVE (NEGATIVE); Non-Squamous Epithelial Cells RARE /HPF (FEW); Protein,Urine Dip >=500 (Negative); RBC 26-50 /HPF (0-2); Specific Gravity 1.014 (1.005-1.025); Urobilinogen 2 mg/dL (0-1); WBC >100 /HPF (0-5)
[2021-08-08 06:19] LABS: INFLUENZA A NEGATIVE (NEGATIVE); INFLUENZA B NEGATIVE (NEGATIVE); RESPIRATORY SYNCTIAL VIRUS NEGATIVE (Negative); SARS-CoV-2 Xpert Express NEGATIVE (NEGATIVE)
[2021-08-08] MEDS ORDERED: Merrem 1 GM 1 G in Sodium Chloride 100ML MINI-BAG PLUS 100 ML IV ONE (06:39)
[2021-08-08] MEDS ORDERED: Zosyn INJ 4.5 GM in Sodium Chloride 100ML MINI-BAG PLUS 100 ML IV ONE (06:44)
[2021-08-08] MEDS ORDERED: Zosyn INJ IV ONE (06:47)
[2021-08-08] MEDS ORDERED: Sodium Chloride 100ML MINI-BAG PLUS 100 ML IV ONE (06:47)
[2021-08-08] MEDS ORDERED: Zofran 4 MG/2 ML VIAL IV ONE (07:09)
[2021-08-08] MEDS ORDERED: Zofran 4 MG/2 ML VIAL ONE (07:20)
--- NOTE | 2021-08-08 07:33 | XRAY ---
Indication: Pain/headache following head trauma. Multiple contiguous axial images obtained through the head without contrast. Comparison: August 22, 2018. Again age-appropriate global atrophy and mild periventricular degenerative micro-ischemia. No acute intracranial hemorrhage, abnormal extra-axial fluid collection, or mass effect. Fourth ventricle is midline without hydrocephalus. Bony calvarium intact. Visualized paranasal sinuses and mastoid air cells are clear. Impression: Continued nonacute senile brain. Comment: Preliminary interpretation made by [facility]. No critical discrepancy.
--- NOTE | 2021-08-08 07:40 | XRAY ---
Indication: Tenderness following fall. Multiple contiguous axial images obtained through the cervical spine. Sagittal and coronal reformatted images obtained. Comparison: None. Osseous structures demineralized consistent with patient's age. Axial images negative for acute fracture, suspicious bony lesions, or spinal canal stenosis. Mild/moderate multilevel degenerative endplate spurring greatest at C5-C6. Also mild/moderate multilevel bilateral degenerative facet hypertrophy and atlantoaxial degenerative arthropathy. Sagittal and coronal reformatted images demonstrates normal cervical lordosis. Minimal C7 anterolisthesis. 2 mm C7 anterolisthesis on T1. C5-C7 degenerative disc space loss. No acute compression fracture or jumped facet. Normal appearing craniocervical junction. Visualized noncontrasted soft tissues demonstrates mild bilateral carotid calcifications and biapical pleural parenchymal fibrosis/scarring. Impression: 1. Negative acute fracture. 2. Incidental osteopenia, multilevel degenerative spondylosis, and minimal C7 grade 1 anterolisthesis. Comment: Preliminary interpretation made by [facility]. No critical discrepancy.
--- NOTE | 2021-08-08 07:46 | XRAY ---
Indication: Abdomen tenderness following fall. Multiple contiguous axial images obtained through the abdomen and pelvis without contrast. Comparison: None. Lung bases demonstrates mild subsegmental atelectasis/scarring. No infiltrate or effusion. Heart is not enlarged. Large hiatal hernia with partial intrathoracic stomach. Noncontrasted stomach and bowel loops appear nonobstructed with normal appendix and minimal descending/sigmoid diverticulosis. No free fluid/air. Gallbladder moderately distended with tiny gallstones near the neck of the gallbladder. No abnormal biliary distention. 3 cm right mid renal round hypodense lesion, probable cyst. Remaining liver, pancreas, spleen, adrenal glands, kidneys, ureters, bladder, and uterus are unremarkable for noncontrast exam. Minimal aortic calcifications without AAA. Osseous structures intact with osteopenia, mild/moderate multilevel thoracolumbar degenerative spondylosis, and moderate dextrorotoscoliosis centered at L2. Impression: 1. Distended gallbladder with tiny gallstones. 2. 3 cm right renal round hypodense lesion, probable cyst. Outpatient sonogram could confirm. 3. Large hiatal hernia with partial intrathoracic stomach, colonic diverticulosis, chronic bony findings. Comment: Preliminary interpretation made by [facility]. No critical discrepancy.
--- NOTE | 2021-08-08 07:49 | XRAY ---
Indication: Swelling following fall. Multiple contiguous axial images obtained through the left hip. Sagittal and coronal reformatted images obtained. Cutaneous BB placed over region of interest. Comparison: None. Osseous structures demineralized consistent with patient's age. Posterior cutaneous BB is seen mid femur level. No underlying solid/cystic soft tissue mass, fluid collection, or soft tissue abnormalities. Visualized vascularity unremarkable. No acute fracture, dislocation, or suspicious bony lesions. Minimal greater trochanter spurring. Impression: 1. Osteopenia and greater trochanter degenerative spurring. 2. Remaining CT left hip without contrast exam is negative. Comment: Preliminary interpretation made by [facility]. No critical discrepancy.
--- NOTE | 2021-08-08 07:54 | XRAY ---
Indication: Buttock bruising following fall. Axial, coronal, and sagittal reformatted images of the pelvis obtained using raw data from the CT abdomen/pelvis study of the same day. Osseous structures demineralized. Visualized lower lumbar spine demonstrates moderate degenerative disc disease. Both hips intact with minimal degenerative joint space narrowing. Minimal bilateral greater trochanter spurring. Tiny right femur head bone island. No acute fracture, dislocation, or suspicious bony lesions. CT abdomen/pelvis reported separately. Impression: 1. Osteopenia, lower lumbar degenerative spondylosis, minimal bilateral degenerative hip arthropathy, and tiny right femur head bone island. 2. Remaining CT pelvis is negative. Comment: Preliminary interpretation made by [facility]. No critical discrepancy.
--- NOTE | 2021-08-08 07:56 | XRAY ---
Indication: Short of breath. Comparison: January 02, 2021. Portable chest unchanged again demonstrating right hemidiaphragm elevation and hiatal hernia with partial intrathoracic stomach. Remaining heart and lungs unremarkable. Bony thorax intact again with osteopenia, degenerative changes, and scoliosis. No new/acute abnormalities.
[2021-08-08 08:07] LABS: ALBUMIN 3.5 g/dL (3.5-5.0); ANION GAP 13.3 MEQ/L (5-15); Calcium 9.2 mg/dL (8.4-10.2); Creatinine 1 1.27 mg/dL (0.52-1.04); EST GLOMERULAR FILTRATION RATE 42.7 ML/MIN; Potassium 3.3 mmol/L (3.5-5.1); Total Protein 6.5 g/dL (6.3-8.2)
[2021-08-08 08:19] LABS: TROPONIN 0.11 ng/mL (0.000-0.034)
[2021-08-08 20:56] VITALS: BP 134/81; PULSE 87; O2SAT 96
== END 2021-08-08 11:06 | disposition short-term general hospital (02) ==
LOC: ED 04:35
DX: I21.4 Non-ST elevation (NSTEMI) myocardial infarction (principal); R55 Syncope and collapse; R79.1 Abnormal coagulation profile; N39.0 Urinary tract infection, site not specified; T54.91XA Toxic effect of unspecified corrosive substance, accidental (unintentional), initial encounter; T21.55XA Corrosion of first degree of buttock, initial encounter; Y92.002 Bathroom of unspecified non-institutional (private) residence as the place of occurrence of the external cause; I25.2 Old myocardial infarction; I10 Essential (primary) hypertension; Z79.01 Long term (current) use of anticoagulants
CPT/HCPCS: 0241U; 36000; 36415; 70450; 71045; 72125; 73700; 74176; 76376; 80047; 80053; 81001; 83605; 83880; 84443; 84484; 85025; 85379; 87086; 93005; 93041; 94760; 96375; 99285; 99291; 87077; 87186; 96374; J2405; J2543